=== PATIENT | female | born 1950 | race African-American/Black ===

== ENCOUNTER 2022-10-01 09:49 | Outpatient (CLI) | payer MEDICARE, MEDICAID, SELFPAY ==
--- NOTE | ~2022-10-01 | US_ITS ---
EXAMINATION: US thyroid DATE: 10/01/2022 10:26 INDICATION: Disorder of thyroid, unspecified. TECHNIQUE: Multiple ultrasound images of the thyroid were obtained. COMPARISON: None. FINDINGS: The right thyroid lobe measures 4.6 x 1.8 x 2.0 cm. The left thyroid lobe measures 4.8 x 2.8 x 2.8 c m. In the left thyroid lobe, there is a 3.4 cm solid, hypoechoic, more than tall nodule with lobulat ed margin with macrocalcifications (TI-RADS TR5). IMPRESSION: 1. Left thyroid nodule. Ultrasound-guided fine-needle aspiration is recommended. Reviewed, dictated and finalized at location A. IMPRESSION: 1. Left thyroid nodule. Ultrasound-guided fine-needle aspiration is recommended .
== END 2022-10-01 09:50 | disposition home or self-care (01) ==
PROVIDERS: PCP Family Medicine; Visit Provider Otolaryngology
DX: E04.1 Nontoxic single thyroid nodule (principal)
CPT/HCPCS: 76536

== ENCOUNTER 2022-10-08 09:39 | Outpatient (CLI) | payer MEDICARE, MEDICAID, SELFPAY ==
--- NOTE | ~2022-10-08 | US_ITS ---
EXAMINATION: US FNA w image guidance DATE: 10/08/2022 11:00 INDICATION: Left thyroid mass TECHNIQUE: A time-out was performed to verify the patient's name, date of , and procedure to be performed . The procedure and its benefits and risks were discussed with the patient. Risks specifically discus sed included bleeding and infection. The patient understood the risks and agreed to proceed. The neck was prepped and draped in the usual sterile manner. 4 mL 1% lidocaine was used for local anesthesia . 6 passes were made with a 25G needle into the lesion. Appropriate needle location was documented with continuous sonographic guidance. A sterile bandage was applied. There were no immediate compli cations. FINDINGS: Grayscale ultrasound images demonstrate biopsy needles advanced into a 3.4 cm TI-RADS 5 left thyroid nodule. IMPRESSION: 1. Successful ultrasound-guided fine needle aspiration of a 3.4 cm TI-RADS 5 left thyroid nodule. Reviewed, dictated and finalized at location A. IMPRESSION: 1. Successful ultrasound-guided fine needle aspiration of a 3.4 cm TI-RADS 5 l eft thyroid nodule.
== END 2022-10-08 09:40 | disposition home or self-care (01) ==
PROVIDERS: PCP Family Medicine; Visit Provider Otolaryngology
DX: E07.9 Disorder of thyroid, unspecified (principal)
CPT/HCPCS: 10005; 88173; 88305

== ENCOUNTER 2023-09-06 07:37 | Emergency (ER) | payer MEDICARE, MEDICAID, SELFPAY ==
[2023-09-06] VITALS (19 sets, daily range): BP systolic 119–174; BP diastolic 67–106; PULSE 60–68; RESP 16–20; TEMP 36.7–37; O2SAT 95–100
[2023-09-06] MEDS: oxyCODONE/ACETAMINOPHEN (*CRX) 5-325 MG TABLET 1 TABLET PO (08:02)
--- NOTE | 2023-09-06 09:46 | ED.GENADULT ---
HPI - General Adult General Chief complaint: Unspecified Stated complaint: Facial pain Time Seen by Provider: 09/06/23 07:44 History of Present Illness HPI narrative: Patient is a 73-year-old female who presentsto the ER with left-sided facial pain. Ongoing for 5 days. Initially went to an urgent care was placed on antibiotics for possible sinus infection. Yesterday patient developed vesicles to her face. She went to an urgent care and they diagnosed her with shingles and started her on Valtrex 1000 mg twice a day. Patient reports increased pain to the face today. She has no pain in her eye and no change in vision. She has noticed some discharge from her eye. Related Data Home Medications Medication Instructions Recorded Confirmed amlodipine 10 mg tablet 10 mg PO 09/24/22 11/18/22 ezetimibe 10 mg tablet 10 mg PO 09/24/22 11/18/22 omeprazole 40 mg capsule,delayed 40 mg PO 09/24/22 11/18/22 release Allergies Allergy/AdvReac Type Severity Reaction Status Date / Time No Known Allergies Allergy Mild Unverified 11/18/22 10:14 Review of Systems Review of Systems: All systems reviewed & are unremarkable except as noted in HPI and below Constitutional: Constitutional: Reports no additional constitutional complaints Eyes: Eyes: Denies blurry vision, Denies change in vision, Denies irritation, Denies itchy eyes, Denies loss of vision, Denies other visual disturbances, Denies eye pain and Denies photophobia ENT: Reports system reviewed and no additional complaints, except as documented Integumentary/Breasts: Skin/Breast: Reports rash and Reports other ( Left facial vesicles) [facility] Past Medical History Medical History Allergies Hypertension Social History Social History Smoking status: Never smoker Alcohol intake: never Substance use: never Lack of Transportation: No Lack of Food: Never True Current Housing: I Have Housing Concerned About Future Housing: No Difficulty Paying Gas/Electric Bills: No Difficulty Paying for Meds: No Currently Unemployed: No Education: High School Diploma/GED Difficulty w/ Childcare or Family Care: No Living arrangements: alone Gender identity (if verbalized by the patient): Female Exam Narrative: GENERAL: Well-appearing, well-nourished, and in no acute distress. HEAD: Normocephalic, atraumatic. EYES: PERRLA and EOMI. left eye viewed under magnification with fluorecin staining. No form body/abrasion/dendritic lesions. ENT: Mucous membranes moist. TMs normal bilaterally, no vesicles in the ear canals. CHEST: Clear to auscultation. No respiratory distress. HEART: Regular rate and rhythm. No murmur heard. Normal peripheral pulses. EXTREMITIES: Normal range of motion. No edema. SKIN: Warm, dry . Shingles rash to the left face in the V1/V2 distribution. NEURO: Alert and oriented x3. PSYCH: Normal mood and affect. Course Course Emergency Course: Patient's headache and facial pain resolved with Percocet. I will give patient a prescription for additional Valtrex so that she can take it 3 times a day. Additionally I have educated her that should she develop eye pain or difficulty seeing she should proceed immediately to a tertiary care center for further evaluation. Vital Signs Vital signs: Vital Signs Temperature 98.6 F 09/06/23 07:44 Pulse Rate 68 09/06/23 07:44 Respiratory Rate 20 09/06/23 07:44 Blood Pressure 155/95 H 09/06/23 07:44 Pulse Oximetry 98 09/06/23 07:44 Oxygen Delivery Room Air 09/06/23 07:44 Temperature 98.0 F 09/06/23 10:49 Pulse Rate 64 09/06/23 10:49 Respiratory Rate 16 09/06/23 10:49 Blood Pressure 119/67 09/06/23 10:49 Pulse Oximetry 98 09/06/23 10:49 Oxygen Delivery Room Air 09/06/23 07:44 Medical Decision Making Vital Signs Vital Signs: Vital Signs
== END 2023-09-06 10:51 | disposition home or self-care (01) ==
PROVIDERS: Emergency Provider Emergency Medicine; PCP Family Medicine
DX: B02.9 Zoster without complications (principal)
CPT/HCPCS: 99283; A9270

== ENCOUNTER 2023-11-04 14:14 | Inpatient (IN) | payer MEDICARE, MEDICAID, SELFPAY ==
[2023-11-04] VITALS (14 sets, daily range): BP systolic 101–128; BP diastolic 55–96; PULSE 81–90; RESP 16–26; TEMP 35.9–36.8; O2SAT 92–100; BMI 28.2
--- NOTE | ~2023-11-04 | CT_ITS ---
EXAMINATION: CT abdomen pelvis wo con DATE: 11/16/2023 09:54 INDICATION: Abdominal abscess. TECHNIQUE: Computed tomography (CT) of the abdomen and pelvis was performed without intravenous contr ast. Automated exposure control and iterative reconstruction technique were employed. The dose-length product was 714.15 mGy-cm. COMPARISON: CT abdomen and pelvis 11/13/2023 FINDINGS: The visualized portions of the lung bases demonstrate a 4 mm nodule in right lower lobe, li keely benign. No pleural effusion. The heart size is normal. There are coronary artery calcifications. No pericardial effusion. There is a small sliding hiatal hernia. The liver, gallbladder, spleen, hsieh creas, adrenal glands, and right kidney are normal. There are cysts in left kidney measuring up to 11 mm. There is a parenchymal calcification in left kidney. There is wall thickening of the rectosigmoi d. There are scattered diverticula in the colon. There is fat stranding around the rectosigmoid. Ther e is a 6.9 x 3.0 cm perisigmoid abscess with percutaneous drain in expected position. The appendix is normal. There are no pathologically enlarged lymph nodes. There is mild thoracic and lumbar spondylo sis. Thoracolumbar levoscoliosis is noted. IMPRESSION: 1. Acute sigmoid diverticulitis. 2. Stable 6.9 x 3.0 cm perisigmoid abscess with percutaneous drain in expected position. Reviewed, dictated and finalized at location E.
--- NOTE | ~2023-11-04 | CT_ITS ---
EXAMINATION: CT abdomen pelvis w con DATE: 11/08/2023 10:20 INDICATION: Abscess. Leukocytosis. TECHNIQUE: Computed tomography (CT) of the abdomen and pelvis was performed with 100 mL Omnipaque 350 intravenous contrast. Automated exposure control and iterative reconstruction technique were employe d. The dose-length product was 1059.62 mGy-cm. COMPARISON: CT pelvis 11/05/2023 FINDINGS: The visualized portions of the lung bases demonstrate mild atelectasis. A calcified left davis ng nodule is consistent with old granulomatous disease. There is a trace left pleural effusion. The h eart size is normal. No pericardial effusion. There is a small sliding hiatal hernia. The liver is no rmal. The gallbladder is normal in size. The spleen, pancreas, and adrenal glands are normal. There i s cortical thinning of the kidneys. There are cysts in left kidney measuring up to 14 mm. There is ca lcified atherosclerosis of the aorta and many of the other arteries. There is wall thickening of the sigmoid colon. There are scattered diverticula in the colon. There is fat stranding around the sigmoi d colon. There is a perforation of the wall of the sigmoid colon with diameter of 6 mm. There is a 6. 7 x 6.2 x 3.3 cm perisigmoid abscess. There are no dilated loops of bowel. The appendix is normal. Th ere are no pathologically enlarged lymph nodes. There is mild thoracic and lumbar spondylosis. IMPRESSION: 1. Acute sigmoid diverticulitis with fistula to a 6.7 x 6.2 x 3.3 cm perisigmoid abscess. Consider CT -guided drainage. Reviewed, dictated and finalized at location A. IMPRESSION: 1. Acute sigmoid diverticulitis with fistula to a 6.7 x 6.2 x 3.3 cm perisigmoi d abscess. Consider CT-guided drainage.
--- NOTE | ~2023-11-04 | CT_ITS ---
EXAMINATION: CT abdomen pelvis w con DATE: 11/04/2023 15:51 INDICATION: Nonlocalized abdominal pain. Nausea and vomiting. TECHNIQUE: Computed tomography (CT) of the abdomen and pelvis was performed with 100 mL Omnipaque 350 intravenous contrast. Automated exposure control and iterative reconstruction technique were employe d. The dose-length product was 560.40 mGy-cm. COMPARISON: None. FINDINGS: The visualized portions of the lung bases demonstrate mild atelectasis. There is a 4 mm nod ule in right lower lobe, likely benign. No pleural effusion. The heart size is normal. No pericardial effusion. There is a small sliding hiatal hernia. There is a 5 mm cyst in the liver. The spleen, gal lbladder, pancreas, and adrenal glands are normal. There are cysts in the kidneys measuring up to 15 mm on the left. There are multiple diverticula in the colon. There is wall thickening of the sigmoid colon with surrounding fat stranding. There is a perisigmoid abscess measuring up to 6.7 x 3.1 cm con taining fluid and gas. The appendix is normal. Aortic atherosclerosis is noted. There are no patholog ically enlarged lymph nodes. There is moderate lumbar spondylosis. IMPRESSION: 1. Sigmoid diverticulitis with perisigmoid abscess. The volume of gas in the abscess suggests a fistu la to sigmoid colon. Reviewed, dictated and finalized at location E. IMPRESSION: 1. Sigmoid diverticulitis with perisigmoid abscess. The volume of gas in the ab scess suggests a fistula to sigmoid colon.
--- NOTE | ~2023-11-04 | CT_ITS ---
EXAMINATION: CT abdomen pelvis wo con DATE: 11/13/2023 11:44 INDICATION: Pelvic abscess. TECHNIQUE: Computed tomography (CT) of the abdomen and pelvis was performed without intravenous contr ast. Automated exposure control and iterative reconstruction technique were employed. The dose-length product was 749.73 mGy-cm. COMPARISON: CT abdomen and pelvis 11/08/2023 FINDINGS: The visualized portions of lung bases demonstrate minimal atelectasis. A calcified left donnell g nodule is consistent with old granulomatous disease. No pleural effusion. The heart size is normal. There are coronary artery calcifications. No pericardial effusion. The liver, gallbladder, spleen, p ancreas, adrenal glands, and right kidney are normal. There is a 2 mm parenchymal calcification in le ft kidney. There are cysts in left kidney measuring up to 1.5 cm. There is wall thickening of the sig moid colon with surrounding fat stranding. There are scattered diverticula in the colon. There is a 7 .3 x 2.8 cm perisigmoid abscess with percutaneous drain in expected position. The appendix is normal. The appendix is normal. There is a small sliding hiatal hernia. There are no pathologically enlarged lymph nodes. There is no free ascites. IMPRESSION: 1. Acute sigmoid diverticulitis with 7.3 x 2.8 cm perisigmoid abscess with interval improvement with percutaneous drain in expected position. If drain output is low, consider CT-guided exchange for a la rger drain. Reviewed, dictated and finalized at location A. IMPRESSION: 1. Acute sigmoid diverticulitis with 7.3 x 2.8 cm perisigmoid abscess with inte rval improvement with percutaneous drain in expected position. If drain output is low, consider CT-guided exchange for a larger drain.
--- NOTE | ~2023-11-04 | CT_ITS ---
EXAMINATION: CT pelvis wo con DATE: 11/05/2023 18:07 INDICATION: Pelvic abscess. Drain manipulation. TECHNIQUE: Computed tomography (CT) of the pelvis was performed without intravenous contrast. Automat ed exposure control and iterative reconstruction technique were employed. The dose-length product was 439.76 mGy-cm. COMPARISON: CT abdomen and pelvis 11/04/2023, 11/05/23 FINDINGS: There are no dilated loops of bowel. The appendix is normal. There are scattered diverticul a in the colon. There is wall thickening of the sigmoid colon with surrounding fat stranding. There i s a perisigmoid abscess measuring up to 6.2 x 1.1 cm. The percutaneous drain has been withdrawn out o f the abscess. There is a lipoma in the proximal right thigh. There is moderate lumbar spondylosis. IMPRESSION: 1. Acute sigmoid diverticulitis with perisigmoid abscess with interval improvement. 2. Dislodged percutaneous drain, which is no longer in the abscess. Reviewed, dictated and finalized at location E. IMPRESSION: 1. Acute sigmoid diverticulitis with perisigmoid abscess with interval improvem ent. 2. Dislodged percutaneous drain, which is no longer in the abscess.
--- NOTE | ~2023-11-04 | CT_ITS ---
EXAMINATION: CT guide absc cath placement DATE: 11/09/2023 13:45 INDICATION: Perisigmoid abscess. TECHNIQUE: The procedure including the risks, benefits, and alternatives was discussed with the patie nt. Risks discussed included bleeding and infection. The patient understood the risks and benefits an d agreed to proceed. The skin overlying the buttock was prepped and draped in usual sterile fashion. Anesthetic was administered with 1% lidocaine subcutaneously. Moderate sedation was achieved with 1 mg Versed IV and 100 mcg fentanyl IV. An 18 gauge trochar needle was inserted into the perisigmoid ab scess with CT guidance. The needle was exchanged over a wire for 5 [place], 7 [place], and 9 [place] dil ators and then for an 8.5 [place] pigtail catheter. The catheter was stitched to the skin, and a steri le dressing was applied. The mA was adjusted according to patient size. Iterative reconstruction tech nique was employed. The dose-length product was 295.80 mGy-cm. There were no immediate complications. FINDINGS: CT images demonstrate the catheter within the fluid collection. 5 mL fluid was aspirated fo r testing. IMPRESSION: 1. Successful CT-guided perisigmoid abscess drainage. 2. 5 mL opaque, donaldson fluid was sent for aerobic and anaerobic cultures. Reviewed, dictated and finalized at location A.
--- NOTE | ~2023-11-04 | CT_ITS ---
EXAMINATION: CT guide absc cath placement DATE: 11/05/2023 14:35 INDICATION: Diverticular abscess in the pelvis TECHNIQUE: The procedure including the risks and benefits was discussed with the patient. Risks discu ssed included bleeding and infection. The patient understood the risks and benefits and agreed to pro ceed. The patient was confirmed to be receiving appropriate antibiotic coverage. The skin overlying the left buttock along the gluteal cleft was prepped and draped in usual sterile fashion. Anesthetic was administered with 1% lidocaine subcutaneously. An 18-gauge trochar needle was inserted into the abscess cavity utilizing CT guidance. The inner stylette was removed and a J-wire advanced into the f luid collection with position confirmed by CT. Utilizing Seldinger technique the needle was removed o jorge luis the wire and the tract serially dilated to 10 Maltese. A 10 Fr catheter was inserted into the pelv ic abscess and the loop formed and locked with position confirmed by CT. The catheter was stitched to the skin with suture. Antibiotic ointment and a sterile dressing were applied. 40 mL of opaque yello wish-donaldson purulent appearing fluid was aspirated and sent to the lab for Gram stain and cultures. The catheter was then attached to suction drainage and was draining additional purulent appearing fluid a t the conclusion of the procedure. There were no immediate complications. The dose-length product was 324.94 mGy-cm. FINDINGS: CT images demonstrate the catheter within the gas and fluid containing pelvic abscess. 40 m L fluid was aspirated for testing. IMPRESSION: 1. Successful CT-guided left transgluteal abscess drainage catheter placement. 2. 40 mL fluid was sent for aerobic and anaerobic cultures. 3. The catheter will be managed by Dr. Johnson. Reviewed, dictated and finalized at location A.
--- NOTE | ~2023-11-04 | CT_ITS ---
EXAMINATION: CT guide absc cath placement DATE: 11/13/2023 15:42 INDICATION: Perisigmoid abscess. TECHNIQUE: The procedure including the risks, benefits, and alternatives was discussed with the patie nt. Risks discussed included bleeding and infection. The patient understood the risks and benefits an d agreed to proceed. The skin overlying the left buttock was prepped and draped in usual sterile fas hion. Anesthetic was administered with 1% lidocaine subcutaneously. The percutaneous drain was excha nged over a J-wire for 6 Northern Irish, 8 Northern Irish, and 10 Northern Irish dilators and a 10 Northern Irish pigtail catheter us ing CT guidance. The catheter was stitched to the skin, and a sterile dressing was applied. The mA wa s adjusted according to patient size. Iterative reconstruction technique was employed. The dose-lengt h product was 158.93 mGy-cm. There were no immediate complications. FINDINGS: CT images demonstrate the catheter within the perisigmoid abscess. IMPRESSION: 1. Successful CT-guided perisigmoid abscess drain exchange. Reviewed, dictated and finalized at location A.
[2023-11-04] MEDS: SODIUM CHLORIDE 0.9% IV 1,000 ML 999 ML IV CONT (15:29)
[2023-11-04] MEDS: ONDANSETRON INJ 4 MG/2 ML VIAL IV PUSH (15:30)
[2023-11-04] MEDS: MORPHINE SULFATE (*CRX) 4 MG/ML INJ IV PUSH (15:30)
[2023-11-04 15:37] LABS: Hematocrit 35.2 % (37.0-47.0); Hemoglobin 12.2 g/dL (12.0-15.0); Mean Corpuscular HGB Conc 34.7 g/dl (32-36); Mean Corpuscular Hemoglobin 30.7 pg (26-34); Mean Corpuscular Volume 88.7 fl (80-100); Mean Platelet Volume 10.1 fl (7.4-10.4); Platelet Count Result 262 k/mm3 (150-375); Red Blood Count 3.97 M/mm3 (4.2-5.4); Red Cell Distribution Width 14.4 % (11.5-14.5)
[2023-11-04 15:48] LABS: INR 1.2
[2023-11-04 15:49] LABS: Partial Thromboplastin Time 37.8 Seconds (22.3-36.8)
[2023-11-04 15:58] LABS: Alanine Aminotransferase 19 U/L (6-35); Albumin Level 3.8 g/dL (3.5-5.1); Alkaline Phosphatase 95 U/L (38-126); Anion Gap 8 mmol/L (4-12); Aspartate Amino Transferase 27 U/L (14-36); Bilirubin,Total 1.1 mg/dL (0.2-1.3); Blood Urea Nitrogen 10 mg/dL (7-17); Calcium 8.8 mg/dL (8.4-10.2); Carbon Dioxide 25 mmol/L (22-30); Chloride 101 mmol/L (98-107); Estimated CRCL calculation 58 ml/min; Estimated Glomerular Filt Rate > 60; Glucose 117 mg/dL (65-110); Lipase 42 U/L (23-300); Potassium 2.6 mmol/L (3.4-5.0); Sodium 134 mmol/L (137-145)
[2023-11-04 15:59] LABS: Estimated CRCL calculation 58 ml/min; Estimated Glomerular Filt Rate > 60
[2023-11-04 16:13] LABS: Atypical Lymphocytes Present; Band Neutrophils Percent 9 % (0-6); Lymphocytes Absolute Manual 1.25 K/mm3 (1.1-4.5); Monocytes Percent Manual 2 % (3-9); Neutrophils Absolute Manual 23.25 K/mm3 (1.7-7.2); Neutrophils Percent Manual 84 % (46-73); Platelet Estimate Adequate (Adequate); Schistocytes None Seen; Total Cells Counted 100
--- NOTE | 2023-11-04 16:18 | ED.ABDPAIN ---
HPI - Abdominal Pain General Chief Complaint: Abdominal Pain Stated Complaint: abd pain Time Seen by Provider: 11/04/23 15:11 History of Present Illness HPI narrative: patient is a 73-year-old female who presents ER with abdominal pain. Worsening over last week. It is now sharp and located on left side. She is having bowel movements. No diarrhea. No fevers or chills or sweats. She has been having vomiting. No alleviating factors. Related Data Home Medications Medication Instructions Recorded Confirmed amlodipine 10 mg tablet 10 mg PO DAILY 09/24/22 11/04/23 ezetimibe 10 mg tablet 10 mg PO DAILY 09/24/22 11/04/23 omeprazole 40 mg capsule,delayed 40 mg PO DAILY 09/24/22 11/04/23 release Allergies Allergy/AdvReac Type Severity Reaction Status Date / Time No Known Allergies Allergy Mild Unverified 11/18/22 10:14 Review of Systems Review of Systems: All systems reviewed & are unremarkable except as noted in HPI and below Constitutional: Constitutional: Reports no additional constitutional complaints ENT: Reports system reviewed and no additional complaints, except as documented Cardiovascular: Cardiovascular: Reports no additional cardiovascular complaints Respiratory: Respiratory: Reports no additional respiratory complaints Gastrointestinal: Gastrointestinal: Reports abdominal pain, Reports bloating, Reports nausea and Reports vomiting Genitourinary: Genitourinary: Reports no additional female genitourinary complaints [facility] Past Medical History Medical History (Updated 11/04/23 @ 21:25 by Serjio Hendrickson MD) Asthma Chronic nonallergic rhinitis Eczema of both external ears Hypertension Thyroid mass benign follicular nodule, 10/09/22 Surgical History Surgical History History of hysterectomy Social History Social History Smoking packs per day: 1 Smoking cigarettes per day: 20.0 Smoking status: Current every day smoker Tobacco type: cigarettes Alcohol intake: never Substance use: never Do You Feel Safe in your Home?: Yes Lack of Transportation: No Lack of Food: Never True Current Housing: I Have Housing Concerned About Future Housing: No Difficulty Paying Gas/Electric Bills: No Difficulty Paying for Meds: No Currently Unemployed: No Education: Trade/Vocational Certificate Difficulty w/ Childcare or Family Care: No Living arrangements: alone Gender identity (if verbalized by the patient): Female Spiritual care concerns: No Exam Narrative: GENERAL: Uncomfortable-appearing, well-nourished, and in no acute distress. HEAD: Normocephalic, atraumatic. ENT: Mucous membranes moist. NECK: Supple. CHEST: Clear to auscultation. No respiratory distress. HEART: Regular rate and rhythm. Normal peripheral pulses. ABDOMEN: Soft, mildly distended, tender palpation left lower quadrant with guarding EXTREMITIES: Normal range of motion. No edema. SKIN: Warm, dry, no rash. NEURO: Alert and oriented x3. PSYCH: Normal mood and affect. Course Course Emergency Course: patient formed results. Discussed case with general surgery who will consult on the patient. Patient is on Zosyn and metronidazole. She will be kept NPO. Hospitalist service has accepted the patient. Likely to receive percutaneous drain tomorrow. patient also has hypokalemia which is being replaced IV. Vital Signs Vital signs: Vital Signs Temperature 97.6 F 11/04/23 14:18 Pulse Rate 90 11/04/23 14:18 Respiratory Rate 16 11/04/23 14:18 Blood Pressure 125/70 11/04/23 14:18 Pulse Oximetry 98 11/04/23 14:18 Oxygen Delivery Room Air 11/04/23 14:18 Temperature 96.7 F L 11/04/23 18:30 Pulse Rate 86 11/04/23 20:00 Respiratory Rate 16 11/04/23 20:00 Blood Pressure 122/81 11/04/23 18:30 Pulse Oximetry 99 11/04/23 20:00 Oxygen Delivery Cecilia
[2023-11-04] MEDS: PIPERACILLN/TAZ 3.375GM/NS50ML 3.375 GM/50 ML BAG IVPB ×2 (16:41→23:41)
[2023-11-04 16:53] LABS: Appearance Urine Clear (Clear); Bilirubin Urine Negative (Negative); Blood Urine Negative (Negative); Color Urine Yellow (Yellow); Glucose Urine UA Negative (Negative); Ketones Urine Negative (Negative); Leukocyte Esterase Ur Negative LEU/UL (Negative); Nitrate Urine Negative (Negative); Protein Urine Negative (Negative); Urobilinogen Urine 0.2 mg/dL (<2.0); pH Urine 7.5 (5.0-9.0)
[2023-11-04 16:56] LABS: Specific Grav Ur 1.039 (1.001-1.035)
[2023-11-04 16:57] LABS: Add Urine Microscopic? NO
[2023-11-04] MEDS: POTASSIUM CHLORIDE INJ 40 MEQ in SODIUM CHLORIDE 0.9% IV 500 ML 130 MEQ IVPB (17:41)
[2023-11-04] MEDS: metroNIDAZOLE 500 MG/ISO 100ML 500 MG/100 ML BAG 100 MG IVPB (17:41)
--- NOTE | 2023-11-04 18:05 | PM.IMHP ---
H&P: HPI History of Present Illness Date/Time: 11/04/23 18:05 Chief Complaint: Abdominal Pain Narrative: 73 y/o F presents here with abdominal and N/V with PMH allergies, HTN, and shingles (left facial, 08/2023). Patient presents here from home with abdominal pain, nausea, and vomiting. Onset was on 10/30 with indigestion and heart burn. Then later developed lower abdominal pain that worsened with ambulation and painful BM on Thursday, 10/31. States she attempted to rest and was mostly bed ridden due to the pain. Describes pain as sharp, left upper and midline lower, with radiation into her lower back (more so on the right), aggravated by ambulation, and alleviated by pain medication/resting. Reports reduced appetite since onset of symptoms and poor PO intake. History of abdominal surgeries: partial hysterectomy only. Last bowel movement was this morning (11/03), brown, hard, and small in size like a pellet. Denies diarrhea. +diaphoresis, chills, and fevers since she had shingles in August. Feels dehydrated and nauseous with minimal emesis (described as small amount of spit up). Reports she has been feeling a little more fuzzy and confused over the last few days due to her illness. A/Ox4 but would briefly answer things incorrectly but would correct herself. Initial VS at presentation: 97.6? F, HR 90, RR 16, 125/70, and 98% on RA. ED workup showed: WBC 25, no anemia, INR 1.2 sodium 134, potassium 2.6, glucose 117, lactic 1, creatinine 0.8 and GFR >60, LFTs and lipase WNL. UA showed specific gravity of 1.039, otherwise unremarkable. CT of the abdomen/pelvis showed sigmoid diverticulitis with perisigmoid abscess, volume of gas in the abscess suggestive fistula to the sigmoid colon. Review of Systems Review of Systems: All systems reviewed & are unremarkable except as noted in HPI and below [facility] Past Medical History Medical History (Updated 11/04/23 @ 20:38 by Danitza Montero APRN) Asthma Chronic nonallergic rhinitis Eczema of both external ears Hypertension Thyroid mass benign follicular nodule, 10/09/22 Surgical History Surgical History History of hysterectomy Social History Social History Smoking packs per day: 1 Smoking cigarettes per day: 20.0 Smoking status: Current every day smoker Tobacco type: cigarettes Alcohol intake: never Substance use: never Do You Feel Safe in your Home?: Yes Lack of Transportation: No Lack of Food: Never True Current Housing: I Have Housing Concerned About Future Housing: No Difficulty Paying Gas/Electric Bills: No Difficulty Paying for Meds: No Currently Unemployed: No Education: Trade/Vocational Certificate Difficulty w/ Childcare or Family Care: No Living arrangements: alone Gender identity (if verbalized by the patient): Female Spiritual care concerns: No Meds Home Medications and Allergies Home Medications Medication Instructions Recorded Confirmed Type amlodipine 10 mg tablet 10 mg PO DAILY 09/24/22 11/04/23 History ezetimibe 10 mg tablet 10 mg PO DAILY 09/24/22 11/04/23 History omeprazole 40 mg capsule,delayed 40 mg PO DAILY 09/24/22 11/04/23 History release [id number]-ylhmwjbiz 3.5 4 drp otic (ear) Q8H #10 mL 11/18/22 11/04/23 Rx mg-10,000 unit/mL-1 % ear drops,susp Allergies Allergy/AdvReac Type Severity Reaction Status Date / Time No Known Allergies Allergy Mild Unverified 11/18/22 10:14 Vital Signs Vital Signs - 24 hr 11/04/23 14:18 11/04/23 15:20 11/04/23 16:42 Temperature 97.6 F 98.3 F 98.2 F Pulse Rate 90 88 81 Respiratory Rate 16 16 18 Blood Pressure 125/70 128/78 104/79 Pulse Oximetry 98 99 96 Oxygen Delivery Room Air 11/04/23 15:53 11/04/23 16:00 11/04/23 16:21 Temperature Pulse Rate 87 84 83 Respiratory Rate 20 17 23 H Blood Pressure Pulse Oximetry 96
--- NOTE | 2023-11-04 18:29 | ADMGEN ---
This patient, Myke Sheppard, was admitted to Medical Room 249-01. Patient/family oriented to hospital policies and general routines including ID bracelet, bed and alarms, visiting hours, pain management, procedures, bathroom and other care routines, personal items, smoking policy, room service/diet, and visiting hours. Information on how to activate the Rapid Response Team has been discussed. Patient/Family are encouraged to report perceived risks to care and to ask questions if they do not understand what they are told or what they should do.
[2023-11-04] MEDS: LACTATED RINGERS 1,000 ML 999 ML IV CONT (19:37)
[2023-11-04] MEDS: POTASSIUM CHLORIDE 20 MEQ ER TABLET 40 MEQ PO (19:38)
[2023-11-04 22:26] LABS: Anion Gap 5 mmol/L (4-12); Blood Urea Nitrogen 8 mg/dL (7-17); Calcium 8.2 mg/dL (8.4-10.2); Carbon Dioxide 24 mmol/L (22-30); Chloride 108 mmol/L (98-107); Estimated CRCL calculation 58 ml/min; Estimated Glomerular Filt Rate > 60; Glucose 108 mg/dL (65-110); Magnesium 1.8 mg/dL (1.6-2.3); Potassium 3.5 mmol/L (3.4-5.0); Sodium 137 mmol/L (137-145)
[2023-11-04] MEDS: SODIUM CHLORIDE 0.9% IV 1,000 ML 125 ML IV CONT (23:40)
[2023-11-04] MEDS: NEOMYCIN/POLYMYXIN/HYDROCORT OT SUSP 10 ML BTL (*BKC) 4 DROP EACH EAR (23:41)
[2023-11-05] VITALS (22 sets, daily range): BP systolic 112–169; BP diastolic 65–87; PULSE 74–85; RESP 15–24; TEMP 36.2–36.8; O2SAT 95–100
[2023-11-05] MEDS: metroNIDAZOLE 500 MG/ISO 100ML 500 MG/100 ML BAG 100 MG IVPB ×3 (00:56→17:20)
[2023-11-05] MEDS: PIPERACILLN/TAZ 3.375GM/NS50ML 3.375 GM/50 ML BAG IVPB ×4 (05:03→23:38)
[2023-11-05] MEDS: NEOMYCIN/POLYMYXIN/HYDROCORT OT SUSP 10 ML BTL (*BKC) 4 DROP EACH EAR ×2 (05:04→20:15)
[2023-11-05 05:30] LABS: Basophils Percent Auto 0.2 % (0.2-1.2); Eosinophils Percent Auto 0.1 % (0-4.4); Hematocrit 31.6 % (37.0-47.0); Hemoglobin 10.4 g/dL (12.0-15.0); Immature Granulocyte Absolute 0.41 K/mm3 (0.00-0.031); Immature Granulocyte Percent A 2.2 % (0-0.5); Lymphocytes Absolute Auto 1.49 K/mm3 (0.9-3.2); Lymphocytes Percent Auto 7.8 % (18.3-44.2); Mean Corpuscular HGB Conc 32.9 g/dl (32-36); Mean Corpuscular Hemoglobin 30.1 pg (26-34); Mean Corpuscular Volume 91.3 fl (80-100); Mean Platelet Volume 10.2 fl (7.4-10.4); Monocytes Percent Auto 5.2 % (2.6-8.5); Neutrophils Absolute Auto 16.1 K/mm3 (1.3-6.7); Neutrophils Percent Auto 84.5 % (45.5-73.1); Platelet Count Result 276 k/mm3 (150-375); Red Blood Count 3.46 M/mm3 (4.2-5.4); Red Cell Distribution Width 14.7 % (11.5-14.5); White Blood Count 19.1 K/mm3 (4.5-10.0)
[2023-11-05 05:45] LABS: Alanine Aminotransferase 17 U/L (6-35); Albumin Level 3.2 g/dL (3.5-5.1); Alkaline Phosphatase 83 U/L (38-126); Anion Gap 4 mmol/L (4-12); Aspartate Amino Transferase 21 U/L (14-36); Bilirubin,Total 0.9 mg/dL (0.2-1.3); Blood Urea Nitrogen 9 mg/dL (7-17); Carbon Dioxide 25 mmol/L (22-30); Chloride 110 mmol/L (98-107); Estimated CRCL calculation 58 ml/min; Estimated Glomerular Filt Rate > 60; Glucose 104 mg/dL (65-110); Magnesium 1.9 mg/dL (1.6-2.3); Phosphorus 2.3 mg/dL (2.5-4.5); Potassium 3.3 mmol/L (3.4-5.0); Sodium 139 mmol/L (137-145)
[2023-11-05 05:49] LABS: INR 1.2; Prothrombin Time 15.7 Seconds (11.1-14.7)
[2023-11-05] MEDS: MORPHINE SULFATE (*CRX) 2 MG/ML INJ IV PUSH (06:10)
--- NOTE | 2023-11-05 06:50 | P.PNIM_ITS ---
Progress Note: A&P Assessment and Plan (1) Sepsis: Code(s): A41.9 - Sepsis, unspecified organism Status: Acute Assessment and Plan: - meets SIRS criteria: HR, WBC. No hypotension or hypoxia. - lactic acid: 1.0 - 30 mL/kg = 2300. given 1L bolus of NS, adding 1L bolus of LR -> 125 mL/hr of NS. - suspected source: diverticulitis, perisigmoid abscess - started on Zosyn and Flagyl on 11/03 - blood cultures drawn on 11/03 - UA: specific gravity 1.039, otherwise unremarkable 11/04: * WBC downtrending. 25-->19.1 * afebrile overnight * Blood pressures stable * Continue Zosyn and Flagyl per surgery * blood cultures pending (2) Sigmoid diverticulitis: Code(s): K57.32 - Diverticulitis of large intestine without perforation or abscess without bleeding Status: Deleted Assessment and Plan: - CT abd/pelvis: Sigmoid diverticulitis with perisigmoid abscess. 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 - started on Zosyn and Flagyl on 11/03 - WBC 25 - IV fluids and monitor I&Os - trend labs 11/04: * surgery consult, rec's appreciated * NPO for possible intervention * Zosyn, Flagyl, and IVF * morphine prn for pain, Zofran prn for nausea (3) Abscess of sigmoid colon due to diverticulitis: Code(s): K57.20 - Diverticulitis of large intestine with perforation and abscess without bleeding Status: Deleted Assessment and Plan: - CT abd/pelvis: sigmoid diverticulitis with perisigmoid abscess. 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 - General Surgery consulted, awaiting recs - NPO See plan 2 (4) Hypokalemia: Code(s): E87.6 - Hypokalemia Status: Acute Assessment and Plan: - K 2.6 - starting repletion with KCl 40 IVPB and one time dose of 40 mg PO - repeat bmp at 2200 - continue to trend/correct 11/04: * K+ 3.3, phos 2.3 * IVP K+Phos replacement ordered * On telemetry (5) Hypertension: Code(s): I10 - Essential (primary) hypertension Status: Acute Assessment and Plan: - chronic, currently 120/96 - hold home medication: amlodipine PO - add hydralazine q.8 hours p.r.n. for HTN given NPO status - monitor 11/04: * Blood pressures reviewed and are stable. * Continue to hold home agents in setting of sepsis. Plan Patient here with abdominal pain, nausea, and vomiting. Found to have diverticulitis, perisigmoid abscess, and possible fistula. Blood cultures obtained, started on Zosyn and Flagyl. General surgery consulted and awaiting recs. NPO. Continue to rehydrate. home p.o. medications held, ear drops continued. Diet: NPO GI Prophylaxis: pantoprazole IVP DVT Prophylaxis: SCDs Lines: peripheral Code Status: full code Subjective Date/time seen: 11/05/23 06:50 Interval history: 11/03: Patient is seen lying in bed after returning to her down from having IR procedure. According to her nu
--- NOTE | 2023-11-05 06:50 | PM.IMPN ---
Progress Note: A&P Assessment and Plan (1) Sepsis: Code(s): A41.9 - Sepsis, unspecified organism Status: Acute Assessment and Plan: - meets SIRS criteria: HR, WBC. No hypotension or hypoxia. - lactic acid: 1.0 - 30 mL/kg = 2300. given 1L bolus of NS, adding 1L bolus of LR -> 125 mL/hr of NS. - suspected source: diverticulitis, perisigmoid abscess - started on Zosyn and Flagyl on 11/03 - blood cultures drawn on 11/03 - UA: specific gravity 1.039, otherwise unremarkable 11/04: WBC downtrending. 25-->19.1 afebrile overnight Blood pressures stable Continue Zosyn and Flagyl per surgery blood cultures pending (2) Sigmoid diverticulitis: Code(s): K57.32 - Diverticulitis of large intestine without perforation or abscess without bleeding Status: Deleted Assessment and Plan: - CT abd/pelvis: Sigmoid diverticulitis with perisigmoid abscess. 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 - started on Zosyn and Flagyl on 11/03 - WBC 25 - IV fluids and monitor I&Os - trend labs 11/04: surgery consult, rec's appreciated NPO for possible intervention Zosyn, Flagyl, and IVF morphine prn for pain, Zofran prn for nausea (3) Abscess of sigmoid colon due to diverticulitis: Code(s): K57.20 - Diverticulitis of large intestine with perforation and abscess without bleeding Status: Deleted Assessment and Plan: - CT abd/pelvis: sigmoid diverticulitis with perisigmoid abscess. 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 - General Surgery consulted, awaiting recs - NPO See plan 2 (4) Hypokalemia: Code(s): E87.6 - Hypokalemia Status: Acute Assessment and Plan: - K 2.6 - starting repletion with KCl 40 IVPB and one time dose of 40 mg PO - repeat bmp at 2200 - continue to trend/correct 11/04: K+ 3.3, phos 2.3 IVP K+Phos replacement ordered On telemetry (5) Hypertension: Code(s): I10 - Essential (primary) hypertension Status: Acute Assessment and Plan: - chronic, currently 120/96 - hold home medication: amlodipine PO - add hydralazine q.8 hours p.r.n. for HTN given NPO status - monitor 11/04: Blood pressures reviewed and are stable. Continue to hold home agents in setting of sepsis. Plan Patient here with abdominal pain, nausea, and vomiting. Found to have diverticulitis, perisigmoid abscess, and possible fistula. Blood cultures obtained, started on Zosyn and Flagyl. General surgery consulted and awaiting recs. NPO. Continue to rehydrate. home p.o. medications held, ear drops continued. Diet: NPO GI Prophylaxis: pantoprazole IVP DVT Prophylaxis: SCDs Lines: peripheral Code Status: full code Subjective Date/time seen: 11/05/23 06:50 Interval history: 11/03: Patient is seen lying in bed after returning to her down from having IR procedure. According to her nurse, the patient got up to go to the bathroom and her IR drain got pulled, partially displacing the drain. Dr. Johnson ordered as CT abdomen and pelvis to evaluate drain placement. Drain currently has purulent drainage present to reservoir. The patient states that her abdominal pain has improved since presenting but she still is uncomfortable and feels generally unwell. 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 She has completed therapy with Valtrex. Will add gabapentin for persistent neuropathic pain. Review of Systems Review of Systems: All systems reviewed & are unremarkable except as noted in HPI and below Exam Narrative: General: appears uncomfortable, appears stated age. HEENT: normocephalic, atraumatic. Mucous membranes moist. EOMI, PERRLA, bilateral sclera anicteric, no conjunctival injection. Neck supple without JVD, lymphadenopathy, or bruit. Respiratory: clear to auscultation bilaterally. No ral
--- NOTE | 2023-11-05 08:57 | PM.CNGS ---
Assessment and Plan Assessment and plan (1) Diverticulitis of large intestine with abscess: Code(s): K57.20 - Diverticulitis of large intestine with perforation and abscess without bleeding Status: Acute Assessment and Plan: CT evidence of sigmoid diverticulitis with perisigmoid abscess measuring up to 6.7 cm containing fluid and gas. Her abdominal pain has improved since admission. She has lower abdominal tenderness on exam and guarding in the suprapubic area and left lower quadrant, but no diffuse peritoneal signs. White blood cell count is down to 19,000 today. We would recommend proceeding with percutaneous drainage the perisigmoid abscess in Radiology. Continue IV Zosyn and metronidazole, IV fluids, analgesics, and bowel rest. We will continue to follow along with labs and serial abdominal exams. (2) Hypokalemia: Code(s): E87.6 - Hypokalemia Status: Acute Assessment and Plan: Potassium 2.6 yesterday and came up to 3.5 after replacement. Repeat labs this morning show potassium at 3.3 and phosphorus slightly low at 2.3. 40 mm K-Phos ordered this morning. (3) Hypertension: Code(s): I10 - Essential (primary) hypertension Status: Acute (4) History of shingles: Code(s): Z86.19 - Personal history of other infectious and parasitic diseases Status: Acute Assessment and Plan: Vesicular left facial rash and pain 2 months ago that was treated in the ER on 09/06/23. She no longer has any open lesions and likely does not need any precautions, but she is still complaining of some pain and itching. Discussed with the Hospitalist as she still does have a rash on her face, as well as what looks like thrush. Plan I have discussed the patient's case and plan of care with Dr. Johnson. Thank you for allowing us to see the patient in consultation and we will continue to follow along with you. History of Present Illness Consult details Consult date: 11/05/23 Reason for consult: other (Diverticulitis with abscess) Requesting physician: Serjio Hendrickson MD Narrative: This is a 73-year-old woman with a history of hypertension and hyperlipidemia, who presented to the ER yesterday with complaints of left-sided abdominal pain. Her pain started 1 week ago and has progressively gotten worse over the past few days. She denies fever, chills, diarrhea, blood in stools, nausea, or vomiting. In the ED, she was afebrile and vital signs stable. Labs were significant for white blood cell count 53763 and hypokalemia with a potassium of 2.6. The her potassium was replaced and repeat labs in the evening showed a potassium of 3.5. CT scan of the abdomen and pelvis showed sigmoid diverticulitis with perisigmoid abscess, the volume of gas in the abscess suggests a possible fistula to the sigmoid colon from the abscess. She was admitted and started on IV Zosyn and metronidazole. Our service was consulted for the sigmoid diverticulitis with abscess. She is seen on the medical floor now. Only previous abdominal surgery is a hysterectomy. Denies any previous episodes of diverticulitis. Denies having a colonoscopy in the past. 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
[2023-11-05] MEDS: POTASSIUM PHOS,M-BASIC-D-BASIC 40 MMOL in SODIUM CHLORIDE 0.9% IV 250 ML 43.89 MMOL IVPB (10:22)
[2023-11-05] MEDS: EUCERIN CREAM 120 GM JAR 1 APPLIC TOPICAL (10:23)
[2023-11-05] MEDS: PANTOPRAZOLE SODIUM IV 40 MG VIAL IV PUSH (10:24)
[2023-11-05] MEDS: SODIUM CHLORIDE 0.9% IV 1,000 ML 125 ML IV CONT ×2 (10:39→23:40)
[2023-11-05] MEDS: ACETAMINOPHEN 325 MG TABLET 650 MG PO ×2 (11:01→20:14)
--- NOTE | 2023-11-05 14:30 | WPDMODSED ---
Moderate Sedation Note-Pt Data Patient Data Diagnosis: perforated sigmoid diverticulitis with pelvic abscess Present Complaint: abdominal pain and fever Procedure to be performed/Plan: percutaneous abscess drain placement Allergies Allergy/AdvReac Type Severity Reaction Status Date / Time No Known Allergies Allergy Mild Unverified 11/18/22 10:14 Home Medications Medication Instructions Recorded Confirmed Type amlodipine 10 mg tablet 10 mg PO DAILY 09/24/22 11/04/23 History ezetimibe 10 mg tablet 10 mg PO DAILY 09/24/22 11/04/23 History omeprazole 40 mg capsule,delayed 40 mg PO DAILY 09/24/22 11/04/23 History release narqfwty-hueznijqy-rqsfzeejp 3.5 4 drp otic (ear) Q8H #10 mL 11/18/22 11/04/23 Rx mg-10,000 unit/mL-1 % ear drops,susp Current Medications: Active Medications Acetaminophen (Acetaminophen 325 Mg Tablet) 650 mg PO Q4H PRN PRN Reason: Mild Pain (1-3) or Fever Last Admin: 11/05/23 11:01 Dose: 650 mg Hydralazine HCl (Hydralazine Hcl 20 Mg/Ml Vial) 10 mg IV PUSH Q8H PRN PRN Reason: Blood Pressure - High Piperacillin/Tazobactam/Dextrose (Zosyn 3.375 Gm/Ns 50 Ml) 3.375 gm in 50 mls @ 100 mls/hr IVPB Q6HR [facility] Last Admin: 11/05/23 05:03 Dose: 100 mls/hr Sodium Chloride (Normal Saline Iv) 1,000 mls @ 125 mls/hr IV CONT .Q8H [facility] Last Admin: 11/05/23 10:39 Dose: 125 mls/hr Metronidazole (Flagyl 500 Mg/Iso Soln 100 Ml) 500 mg in 100 mls @ 100 mls/hr IVPB Q8H [facility] Last Admin: 11/05/23 10:23 Dose: 100 mls/hr Morphine Sulfate (Morphine Sulfate (*Crx) 2 Mg/Ml Inj) 2 mg IV PUSH Q2H PRN PRN Reason: Pain Rated 7-10 Last Admin: 11/05/23 06:10 Dose: 2 mg Multi-Ingred Cream/Lotion/Oil/Oint (Eucerin Cream 120 Gm Jar) 1 applic TOPICAL DAILY [facility] Last Admin: 11/05/23 10:23 Dose: 1 applic Neomycin/Polymyxin/Hydrocortisone (Neomycin/Polymyxin/Hydrocort Ot Susp 10 Ml Btl (*Bkc)) 4 drop EACH EAR Q8HR [facility] Last Admin: 11/05/23 05:04 Dose: 4 drop Ondansetron HCl (Ondansetron Inj 4 Mg/2 Ml Vial) 4 mg IV PUSH Q4H PRN PRN Reason: Nausea Pantoprazole Sodium (Pantoprazole Sodium Iv 40 Mg Vial) 40 mg IV PUSH QAM [facility] Last Admin: 11/05/23 10:24 Dose: 40 mg Sedation/Anesthesia: No previous sedation/anesthesia problems (including family history). 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 Hypertension Thyroid mass benign follicular nodule, 10/09/22 Surgical History Surgical History History of hysterectomy Social History Social History Smoking packs per day: 1 Smoking cigarettes per day: 20.0 Smoking status: Current every day smoker Tobacco type: cigarettes Alcohol intake: never Substance use: never Do You Feel Safe in your Home?: Yes Lack of Transportation: No Lack of Food: Never True Current Housing: I Have Housing Concerned About Future Housing: No Difficulty Paying Gas/Electric Bills: No Difficulty Paying for Meds: No Currently Unemployed: No Education: Trade/Vocational Certificate Difficulty w/ Childcare or Family Care: No Living arrangements: alone Gender identity (if verbalized by the patient): Female Spiritual care concerns: No Mod Sed Physical Exam Physical Exam Pre Procedural Exam: Normal: Appearance, Throat, Lungs, Heart Rate and Heart Rhythm Hours since solid foods: 12 Hours since liquid intake: 12 Mallampati Classification: class II Internal Medicine - PN: Obj Da Vital Signs Vital Signs: Vital Signs - 24 hr 11/04/23 15:20 11/04/23 16:42 11/04/23 15:53 Temperature 98.3 F 98.2 F Pulse Rate 88 81 87 Respiratory Rate 16 18 20 Blood Pressure 128/78 104/79 Pulse Oximetry 99 96 96 Oxygen Delivery Fraction of Inspired Oxygen 11/04/23 16:00 11/04/23 16:21 11/04/23
[2023-11-05] MEDS: GABAPENTIN 300 MG CAPSULE PO (18:14)
[2023-11-05] MEDS: NYSTATIN 100,000 UNITS/ML SUSP 5 ML ORAL.SUSP PO (20:15)
[2023-11-05 21:40] LABS: Magnesium 1.9 mg/dL (1.6-2.3); Phosphorus 2.6 mg/dL (2.5-4.5)
[2023-11-06] VITALS (9 sets, daily range): BP systolic 117–125; BP diastolic 60–77; PULSE 75–88; RESP 16–17; TEMP 36.3–36.9; O2SAT 94–97
[2023-11-06] MEDS: metroNIDAZOLE 500 MG/ISO 100ML 500 MG/100 ML BAG 100 MG IVPB ×3 (00:10→18:02)
[2023-11-06] MEDS: MORPHINE SULFATE (*CRX) 2 MG/ML INJ IV PUSH (00:44)
[2023-11-06] MEDS: PIPERACILLN/TAZ 3.375GM/NS50ML 3.375 GM/50 ML BAG IVPB ×3 (05:10→18:45)
[2023-11-06 05:39] LABS: Hematocrit 29.8 % (37.0-47.0); Hemoglobin 10.1 g/dL (12.0-15.0); Mean Corpuscular HGB Conc 33.9 g/dl (32-36); Mean Corpuscular Volume 91.4 fl (80-100); Mean Platelet Volume 9.8 fl (7.4-10.4); Platelet Count Result 291 k/mm3 (150-375); Red Blood Count 3.26 M/mm3 (4.2-5.4); Red Cell Distribution Width 15.1 % (11.5-14.5); White Blood Count 12.9 K/mm3 (4.5-10.0)
[2023-11-06 05:50] LABS: Anion Gap 4 mmol/L (4-12); Blood Urea Nitrogen 6 mg/dL (7-17); Calcium 7.8 mg/dL (8.4-10.2); Carbon Dioxide 24 mmol/L (22-30); Chloride 112 mmol/L (98-107); Estimated CRCL calculation 65 ml/min; Estimated Glomerular Filt Rate > 60; Glucose 102 mg/dL (65-110); Sodium 140 mmol/L (137-145)
--- NOTE | 2023-11-06 07:45 | P.PNIM_ITS ---
Progress Note: A&P Assessment and Plan (1) Sepsis: Code(s): A41.9 - Sepsis, unspecified organism Status: Acute Assessment and Plan: - meets SIRS criteria: HR, WBC. No hypotension or hypoxia. - lactic acid: 1.0 - 30 mL/kg = 2300. given 1L bolus of NS, adding 1L bolus of LR -> 125 mL/hr of NS. - suspected source: diverticulitis, perisigmoid abscess - started on Zosyn and Flagyl on 11/03 - blood cultures drawn on 11/03 - UA: specific gravity 1.039, otherwise unremarkable 11/04: * WBC downtrending. 25-->19.1 * afebrile overnight * Blood pressures stable * Continue Zosyn and Flagyl per surgery * blood cultures pending 11/05: * Leukocytosis still resolving. White count 12.9 today * Afebrile overnight * Preliminary read on blood cultures with no growth (2) Sigmoid diverticulitis: Code(s): K57.32 - Diverticulitis of large intestine without perforation or abscess without bleeding Status: Deleted Assessment and Plan: - CT abd/pelvis: Sigmoid diverticulitis with perisigmoid abscess. 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 - started on Zosyn and Flagyl on 11/03 - WBC 25 - IV fluids and monitor I&Os - trend labs 11/04: * surgery consult, rec's appreciated * NPO for possible intervention * Zosyn, Flagyl, and IVF * morphine prn for pain, Zofran prn for nausea 11/05: * IR drain was placed yesterday. Drain was displaced when patient got up to go to the restroom. * CT abdomen pelvis shows drain no longer in abscess * Patient made NPO for possible drain replacement today * Decreased IV fluids to 100 ml/hr (3) Abscess of sigmoid colon due to diverticulitis: Code(s): K57.20 - Diverticulitis of large intestine with perforation and abscess without bleeding Status: Deleted Assessment and Plan: - CT abd/pelvis: sigmoid diverticulitis with perisigmoid abscess. 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 - General Surgery consulted, awaiting recs - NPO See plan 2 (4) Hypokalemia: Code(s): E87.6 - Hypokalemia Status: Acute Assessment and Plan: - K 2.6 - starting repletion with KCl 40 IVPB and one time dose of 40 mg PO - repeat bmp at 2200 - continue to trend/correct 11/04: * K+ 3.3, phos 2.3 * IVP K+Phos replacement ordered * On telemetry 11/05: * K+ 3.0, Mag pending * Ordered 40 mEq of oral K and 40 mEq IV x1 * Telemetry (5) Hypertension: Code(s): I10 - Essential (primary) hypertension Status: Acute Assessment and Plan: - chronic, currently 120/96 - hold home medication: amlodipine PO - add hydralazine q.8 hours p.r.n. for HTN given NPO status - monitor 11/04: * Blood pressures reviewed and are stable. * Continue to hold home agents in setting of sepsis. 11/05: * Blood pressures reviewed and are stable (6) History of shingles: Code(s): Z86.19 - Personal history of other infectious and parasi
--- NOTE | 2023-11-06 07:45 | PM.IMPN ---
Progress Note: A&P Assessment and Plan (1) Sepsis: Code(s): A41.9 - Sepsis, unspecified organism Status: Acute Assessment and Plan: - meets SIRS criteria: HR, WBC. No hypotension or hypoxia. - lactic acid: 1.0 - 30 mL/kg = 2300. given 1L bolus of NS, adding 1L bolus of LR -> 125 mL/hr of NS. - suspected source: diverticulitis, perisigmoid abscess - started on Zosyn and Flagyl on 11/03 - blood cultures drawn on 11/03 - UA: specific gravity 1.039, otherwise unremarkable 11/04: WBC downtrending. 25-->19.1 afebrile overnight Blood pressures stable Continue Zosyn and Flagyl per surgery blood cultures pending 11/05: Leukocytosis still resolving. White count 12.9 today Afebrile overnight Preliminary read on blood cultures with no growth (2) Sigmoid diverticulitis: Code(s): K57.32 - Diverticulitis of large intestine without perforation or abscess without bleeding Status: Deleted Assessment and Plan: - CT abd/pelvis: Sigmoid diverticulitis with perisigmoid abscess. 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 - started on Zosyn and Flagyl on 11/03 - WBC 25 - IV fluids and monitor I&Os - trend labs 11/04: surgery consult, rec's appreciated NPO for possible intervention Zosyn, Flagyl, and IVF morphine prn for pain, Zofran prn for nausea 11/05: IR drain was placed yesterday. Drain was displaced when patient got up to go to the restroom. CT abdomen pelvis shows drain no longer in abscess Patient made NPO for possible drain replacement today Decreased IV fluids to 100 ml/hr (3) Abscess of sigmoid colon due to diverticulitis: Code(s): K57.20 - Diverticulitis of large intestine with perforation and abscess without bleeding Status: Deleted Assessment and Plan: - CT abd/pelvis: sigmoid diverticulitis with perisigmoid abscess. 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 - General Surgery consulted, awaiting recs - NPO See plan 2 (4) Hypokalemia: Code(s): E87.6 - Hypokalemia Status: Acute Assessment and Plan: - K 2.6 - starting repletion with KCl 40 IVPB and one time dose of 40 mg PO - repeat bmp at 2200 - continue to trend/correct 11/04: K+ 3.3, phos 2.3 IVP K+Phos replacement ordered On telemetry 11/05: K+ 3.0, Mag pending Ordered 40 mEq of oral K and 40 mEq IV x1 Telemetry (5) Hypertension: Code(s): I10 - Essential (primary) hypertension Status: Acute Assessment and Plan: - chronic, currently 120/96 - hold home medication: amlodipine PO - add hydralazine q.8 hours p.r.n. for HTN given NPO status - monitor 11/04: Blood pressures reviewed and are stable. Continue to hold home agents in setting of sepsis. 11/05: Blood pressures reviewed and are stable (6) History of shingles: Code(s): Z86.19 - Personal history of other infectious and parasitic diseases Status: Acute Assessment and Plan: -recently was seen in [place] ED in August with a vesicular rash to her face with associated pain. She was given Valtrex and completed treatment per her reports. 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 -can add gabapentin 300 mg TID for pain 11/05: reports improvement in pain with gabapentin (7) Thrush: Code(s): B37.0 - Candidal stomatitis Status: Acute Assessment and Plan: -patient complaining of a sore throat -oral exam concerning for thrush -Added oral nystatin swish and swallow -tongue with white plaque 11/05: pain is improving with nystatin swish and spit Plan Patient here with abdominal pain, nausea, and vomiting. Found to have diverticulitis, perisigmoid abscess, and possible fistula. Blood cultures obtained, started on Zosyn and Flagyl. General surgery consulted and awaiting recs. NPO. Continue to rehydrate. home p.o. medicat
[2023-11-06 08:37] LABS: Magnesium 1.9 mg/dL (1.6-2.3)
[2023-11-06] MEDS: GABAPENTIN 300 MG CAPSULE PO ×3 (09:43→18:02)
[2023-11-06] MEDS: POTASSIUM CHLORIDE 20 MEQ ER TABLET 40 MEQ PO (09:43)
[2023-11-06] MEDS: PANTOPRAZOLE SODIUM IV 40 MG VIAL IV PUSH (09:46)
[2023-11-06] MEDS: EUCERIN CREAM 120 GM JAR 1 APPLIC TOPICAL (09:46)
[2023-11-06] MEDS: NYSTATIN 100,000 UNITS/ML SUSP 5 ML ORAL.SUSP PO ×4 (09:46→20:46)
[2023-11-06] MEDS: ACETAMINOPHEN 325 MG TABLET 650 MG PO ×2 (10:02→18:44)
[2023-11-06] MEDS: POTASSIUM CHLORIDE INJ 40 MEQ in SODIUM CHLORIDE 0.9% IV 500 ML 130 MEQ IVPB (12:02)
[2023-11-06] MEDS: NEOMYCIN/POLYMYXIN/HYDROCORT OT SUSP 10 ML BTL (*BKC) 4 DROP EACH EAR ×2 (13:42→20:46)
[2023-11-07] VITALS (9 sets, daily range): BP systolic 119–138; BP diastolic 74–82; PULSE 76–91; RESP 18; TEMP 36.5–37.4; O2SAT 92–99
[2023-11-07] MEDS: metroNIDAZOLE 500 MG/ISO 100ML 500 MG/100 ML BAG 100 MG IVPB ×3 (00:54→18:24)
[2023-11-07] MEDS: ACETAMINOPHEN 325 MG TABLET 650 MG PO (03:03)
[2023-11-07] MEDS: PIPERACILLN/TAZ 3.375GM/NS50ML 3.375 GM/50 ML BAG IVPB ×5 (05:00→23:50)
--- NOTE | 2023-11-07 08:00 | P.PNIM_ITS ---
Progress Note: A&P Assessment and Plan (1) Sepsis: Code(s): A41.9 - Sepsis, unspecified organism Status: Acute Assessment and Plan: - meets SIRS criteria: HR, WBC. No hypotension or hypoxia. - lactic acid: 1.0 - 30 mL/kg = 2300. given 1L bolus of NS, adding 1L bolus of LR -> 125 mL/hr of NS. - suspected source: diverticulitis, perisigmoid abscess - started on Zosyn and Flagyl on 11/03 - blood cultures drawn on 11/03 - UA: specific gravity 1.039, otherwise unremarkable 11/04: * WBC downtrending. 25-->19.1 * afebrile overnight * Blood pressures stable * Continue Zosyn and Flagyl per surgery * blood cultures pending 11/05: * Leukocytosis still resolving. White count 12.9 today * Afebrile overnight * Preliminary read on blood cultures with no growth 11/06: * WBC increased to 12.9-->15.9 * afebrile, remainder of VSS * Culture from abscess is growing streptococcus anginosus. On Zosyn. * May need repeat CT abdomen and pelvis if WBC continues to rise (2) Sigmoid diverticulitis: Code(s): K57.32 - Diverticulitis of large intestine without perforation or abscess without bleeding Status: Deleted Assessment and Plan: - CT abd/pelvis: Sigmoid diverticulitis with perisigmoid abscess. 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 - started on Zosyn and Flagyl on 11/03 - WBC 25 - IV fluids and monitor I&Os - trend labs 11/04: * surgery consult, rec's appreciated * NPO for possible intervention * Zosyn, Flagyl, and IVF * morphine prn for pain, Zofran prn for nausea 11/05: * IR drain was placed yesterday. Drain was displaced when patient got up to go to the restroom. * CT abdomen pelvis shows drain no longer in abscess * Patient made NPO for possible drain replacement today * Decreased IV fluids to 100 ml/hr 11/06: * IVF D/c'd * regular diet * having loose stools--add probiotic (3) Abscess of sigmoid colon due to diverticulitis: Code(s): K57.20 - Diverticulitis of large intestine with perforation and abscess without bleeding Status: Deleted Assessment and Plan: - CT abd/pelvis: sigmoid diverticulitis with perisigmoid abscess. 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 - General Surgery consulted, awaiting recs - NPO See plan 2 (4) Hypokalemia: Code(s): E87.6 - Hypokalemia Status: Acute Assessment and Plan: - K 2.6 - starting repletion with KCl 40 IVPB and one time dose of 40 mg PO - repeat bmp at 2200 - continue to trend/correct 11/04: * K+ 3.3, phos 2.3 * IVP K+Phos replacement ordered * On telemetry 11/05: * K+ 3.0, Mag pending * Ordered 40 mEq of oral K and 40 mEq IV x1 * Telemetry 11/06: K+ 3.0, replace with K 40 meq (5) Hypertension: Code(s): I10 - Essential (primary) hypertension Status: Acute Assessment and Plan: - chronic, currently 120/96 - hold home medication: amlodipine PO - add hydralazine q.8 hours p.r.n. for HTN given NPO status - monitor 11/04: Blanca Feliciano
--- NOTE | 2023-11-07 08:00 | PM.IMPN ---
Progress Note: A&P Assessment and Plan (1) Sepsis: Code(s): A41.9 - Sepsis, unspecified organism Status: Acute Assessment and Plan: - meets SIRS criteria: HR, WBC. No hypotension or hypoxia. - lactic acid: 1.0 - 30 mL/kg = 2300. given 1L bolus of NS, adding 1L bolus of LR -> 125 mL/hr of NS. - suspected source: diverticulitis, perisigmoid abscess - started on Zosyn and Flagyl on 11/03 - blood cultures drawn on 11/03 - UA: specific gravity 1.039, otherwise unremarkable 11/04: WBC downtrending. 25-->19.1 afebrile overnight Blood pressures stable Continue Zosyn and Flagyl per surgery blood cultures pending 11/05: Leukocytosis still resolving. White count 12.9 today Afebrile overnight Preliminary read on blood cultures with no growth 11/06: WBC increased to 12.9-->15.9 afebrile, remainder of VSS Culture from abscess is growing streptococcus anginosus. On Zosyn. May need repeat CT abdomen and pelvis if WBC continues to rise (2) Sigmoid diverticulitis: Code(s): K57.32 - Diverticulitis of large intestine without perforation or abscess without bleeding Status: Deleted Assessment and Plan: - CT abd/pelvis: Sigmoid diverticulitis with perisigmoid abscess. 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 - started on Zosyn and Flagyl on 11/03 - WBC 25 - IV fluids and monitor I&Os - trend labs 11/04: surgery consult, rec's appreciated NPO for possible intervention Zosyn, Flagyl, and IVF morphine prn for pain, Zofran prn for nausea 11/05: IR drain was placed yesterday. Drain was displaced when patient got up to go to the restroom. CT abdomen pelvis shows drain no longer in abscess Patient made NPO for possible drain replacement today Decreased IV fluids to 100 ml/hr 11/06: IVF D/c'd regular diet having loose stools--add probiotic (3) Abscess of sigmoid colon due to diverticulitis: Code(s): K57.20 - Diverticulitis of large intestine with perforation and abscess without bleeding Status: Deleted Assessment and Plan: - CT abd/pelvis: sigmoid diverticulitis with perisigmoid abscess. 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 - General Surgery consulted, awaiting recs - NPO See plan 2 (4) Hypokalemia: Code(s): E87.6 - Hypokalemia Status: Acute Assessment and Plan: - K 2.6 - starting repletion with KCl 40 IVPB and one time dose of 40 mg PO - repeat bmp at 2200 - continue to trend/correct 11/04: K+ 3.3, phos 2.3 IVP K+Phos replacement ordered On telemetry 11/05: K+ 3.0, Mag pending Ordered 40 mEq of oral K and 40 mEq IV x1 Telemetry 11/06: K+ 3.0, replace with K 40 meq (5) Hypertension: Code(s): I10 - Essential (primary) hypertension Status: Acute Assessment and Plan: - chronic, currently 120/96 - hold home medication: amlodipine PO - add hydralazine q.8 hours p.r.n. for HTN given NPO status - monitor 11/04: Blood pressures reviewed and are stable. Continue to hold home agents in setting of sepsis. 11/05: Blood pressures reviewed and are stable (6) History of shingles: Code(s): Z86.19 - Personal history of other infectious and parasitic diseases Status: Acute Assessment and Plan: -recently was seen in [place] ED in August with a vesicular rash to her face with associated pain. She was given Valtrex and completed treatment per her reports. 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 -can add gabapentin 300 mg TID for pain 11/05: reports improvement in pain with gabapentin (7) Thrush: Code(s): B37.0 - Candidal stomatitis Status: Acute Assessment and Plan: -patient complaining of a sore throat -oral exam concerning for thrush -Added oral nystatin swish and swallow -tongue with white plaque 11/05: pain is impro
[2023-11-07 08:28] LABS: Basophils Percent Auto 0.2 % (0.2-1.2); Eosinophils Percent Auto 0.2 % (0-4.4); Hematocrit 32.5 % (37.0-47.0); Hemoglobin 10.7 g/dL (12.0-15.0); Immature Granulocyte Absolute 0.14 K/mm3 (0.00-0.031); Immature Granulocyte Percent A 0.9 % (0-0.5); Lymphocytes Absolute Auto 1.16 K/mm3 (0.9-3.2); Lymphocytes Percent Auto 7.3 % (18.3-44.2); Mean Corpuscular HGB Conc 32.9 g/dl (32-36); Mean Corpuscular Hemoglobin 30.5 pg (26-34); Mean Corpuscular Volume 92.6 fl (80-100); Mean Platelet Volume 9.4 fl (7.4-10.4); Monocytes Absolute Auto 1.1 K/mm3 (0.1-0.6); Monocytes Percent Auto 6.7 % (2.6-8.5); Neutrophils Absolute Auto 13.5 K/mm3 (1.3-6.7); Neutrophils Percent Auto 84.7 % (45.5-73.1); Platelet Count Result 355 k/mm3 (150-375); Red Blood Count 3.51 M/mm3 (4.2-5.4); White Blood Count 15.9 K/mm3 (4.5-10.0)
[2023-11-07 08:44] LABS: Magnesium 1.7 mg/dL (1.6-2.3)
[2023-11-07 08:45] LABS: Alanine Aminotransferase 17 U/L (6-35); Albumin Level 3.1 g/dL (3.5-5.1); Alkaline Phosphatase 74 U/L (38-126); Anion Gap 4 mmol/L (4-12); Aspartate Amino Transferase 27 U/L (14-36); Bilirubin,Total 0.8 mg/dL (0.2-1.3); Blood Urea Nitrogen 2 mg/dL (7-17); Carbon Dioxide 29 mmol/L (22-30); Chloride 105 mmol/L (98-107); Estimated CRCL calculation 65 ml/min; Estimated Glomerular Filt Rate > 60; Glucose 97 mg/dL (65-110); Potassium 3.1 mmol/L (3.4-5.0); Sodium 138 mmol/L (137-145)
[2023-11-07] MEDS: GABAPENTIN 300 MG CAPSULE PO ×3 (08:49→17:30)
[2023-11-07] MEDS: EUCERIN CREAM 120 GM JAR 1 APPLIC TOPICAL (08:50)
[2023-11-07] MEDS: NYSTATIN 100,000 UNITS/ML SUSP 5 ML ORAL.SUSP PO ×4 (08:50→20:57)
[2023-11-07] MEDS: PANTOPRAZOLE SODIUM IV 40 MG VIAL IV PUSH (08:50)
[2023-11-07] MEDS: MORPHINE SULFATE (*CRX) 2 MG/ML INJ IV PUSH (08:55)
[2023-11-07] MEDS: NEOMYCIN/POLYMYXIN/HYDROCORT OT SUSP 10 ML BTL (*BKC) 4 DROP EACH EAR (13:03)
--- NOTE | 2023-11-07 14:57 | WPDPN ---
Progress Note: A&P Assessment and Plan (1) Diverticulitis of large intestine with abscess: Code(s): K57.20 - Diverticulitis of large intestine with perforation and abscess without bleeding Status: Acute Assessment and Plan: Clinically she was showing some improvement after the initial drained was placed. Drain is now pulled out of the abscess cavity and removed at the bedside today. After decompression of the abscess it was too small to replace another drain. Continue on IV antibiotics for now. We will need to rescanned her tomorrow for white blood count continues to increase and she has worsening pelvic pain. To abscess has enlarged that she will likely need another pelvic drain. Other option would be proceeding with laparotomy and sigmoid resection and end colostomy. Repeat labs in the morning. Subjective Date/time seen: 11/07/23 14:57 Interval history: Patient seems to be better. Less left lower quadrant abdominal pain. She was on a low residual diet and tolerating solid food and had quite a bit of diarrhea. CT scan showed at the pelvic drain is dislodged from the abscess but the abscess cavity was much smaller. I removed the drainage catheter today since is no longer proper position. No fever. White blood cell count increased to 15,900. Who continues to increase tomorrow then will need another CT scan and if the abscess has enlarged than another IR directed percutaneous drain. Exam Const: General: comfortable and no acute distress Resp: Effort & Inspection: normal respiratory effort Auscultation: clear to auscultation bilaterally Cardio: Rate: regular rate Rhythm: regular rhythm GI: Other: Abdomen is soft and nondistended. Transgluteal drain site without redness or drainage, essentially no drainage due to the fact the drain is not a right position. Mild tenderness palpation left lower quadrant. No generalized peritoneal signs. Objective Data Vital Signs Vital Signs: Vital Signs - 24 hr 11/06/23 16:00 11/06/23 20:00 11/06/23 21:55 Temperature 36.9 C Pulse Rate 83 88 Respiratory Rate 17 Blood Pressure 118/72 Pulse Oximetry 95 Oxygen Delivery Room Air 11/06/23 20:00 11/07/23 00:00 11/07/23 04:00 Temperature Pulse Rate 82 76 80 Respiratory Rate Blood Pressure Pulse Oximetry Oxygen Delivery 11/07/23 05:47 11/07/23 08:00 11/07/23 12:00 Temperature 37.1 C Pulse Rate 83 81 91 Respiratory Rate 18 Blood Pressure 138/82 Pulse Oximetry 92 Oxygen Delivery 11/07/23 08:50 11/07/23 13:35 Temperature 37.4 C Pulse Rate 89 Respiratory Rate 18 Blood Pressure 119/74 Pulse Oximetry 99 Oxygen Delivery Room Air Intake/Output Intake/Output: Intake & Output 11/04/23 11/05/23 11/06/23 11/07/23 23:59 23:59 23:59 23:59 Intake Total 50 2620 2500 300 Output Total 300 1500 2200 Balance -250 1120 300 300 Meds/Results Medications: Active Medications Generic Name Dose Route Start Last Admin Trade Name Freq PRN Reason Stop Dose Admin Acetaminophen 650 mg 11/04/23 20:45 11/07/23 03:03 Acetaminophen 325 Mg Tablet PO 650 mg Q4H PRN Administration Mild Pain (1-3) or Fever Gabapentin 300 mg 11/05/23 17:20 11/07/23 12:55 Gabapentin 300 Mg Capsule PO 300 mg TID MANASA Administration Hydralazine HCl 10 mg 11/04/23 20:42 Hydralazine Hcl 20 Mg/Ml Vial IV PUSH Q8H PRN Blood Pressure - High Piperacillin/Tazobactam/Dextrose 3.375 gm in 50 mls @ 100 mls/hr 11/05/23 00:00 11/07/23 12:55 Zosyn 3.375 Gm/Ns 50 Ml IVPB 100 mls/hr Q6HR MANASA Administration Metronidazole 500 mg in 100 mls @ 100 mls/hr 11/05/23 09:00 11/07/23 09:49 Flagyl 500 Mg/Iso Soln 100 Ml IVPB Infused Q8H MANASA Infusion Morphine Sulfate 2 mg 11/04/23 17:09 11/07/23 08:55 Morphine Sulfate (*Crx) 2 Mg/Ml Inj IV PUSH 2 mg Q2H PRN Administration Pain Rated 7-10 Multi-Ingred Cream/Lotion/Oil/Oint
[2023-11-07] MEDS: POTASSIUM CHLORIDE 20 MEQ ER TABLET 40 MEQ PO (17:30)
[2023-11-07] MEDS: SACCHAROMYCES BOULARDII 250 MG CAPSULE PO (17:30)
[2023-11-08] VITALS (9 sets, daily range): BP systolic 119–128; BP diastolic 69–78; PULSE 74–94; RESP 18–20; TEMP 36.7–37; O2SAT 98–100
[2023-11-08] MEDS: metroNIDAZOLE 500 MG/ISO 100ML 500 MG/100 ML BAG 100 MG IVPB ×3 (01:10→18:32)
[2023-11-08] MEDS: MORPHINE SULFATE (*CRX) 2 MG/ML INJ IV PUSH (02:38)
[2023-11-08 05:26] LABS: Basophils Absolute Auto 0.1 K/mm3 (0.0-0.1); Basophils Percent Auto 0.3 % (0.2-1.2); Eosinophils Percent Auto 0.1 % (0-4.4); Hematocrit 30.3 % (37.0-47.0); Hemoglobin 10.1 g/dL (12.0-15.0); Immature Granulocyte Absolute 0.19 K/mm3 (0.00-0.031); Lymphocytes Absolute Auto 1.46 K/mm3 (0.9-3.2); Lymphocytes Percent Auto 7.9 % (18.3-44.2); Mean Corpuscular HGB Conc 33.3 g/dl (32-36); Mean Corpuscular Hemoglobin 30.6 pg (26-34); Mean Corpuscular Volume 91.8 fl (80-100); Mean Platelet Volume 10.1 fl (7.4-10.4); Monocytes Absolute Auto 1.1 K/mm3 (0.1-0.6); Monocytes Percent Auto 6.1 % (2.6-8.5); Neutrophils Absolute Auto 15.7 K/mm3 (1.3-6.7); Neutrophils Percent Auto 84.6 % (45.5-73.1); Platelet Count Result 347 k/mm3 (150-375); White Blood Count 18.5 K/mm3 (4.5-10.0)
[2023-11-08] MEDS: PIPERACILLN/TAZ 3.375GM/NS50ML 3.375 GM/50 ML BAG IVPB ×4 (06:10→23:22)
[2023-11-08] MEDS: NEOMYCIN/POLYMYXIN/HYDROCORT OT SUSP 10 ML BTL (*BKC) 4 DROP EACH EAR ×2 (06:15→21:51)
[2023-11-08] MEDS: ACETAMINOPHEN 325 MG TABLET 650 MG PO ×2 (06:20→22:09)
[2023-11-08 06:43] LABS: Alanine Aminotransferase 16 U/L (6-35); Albumin Level 2.9 g/dL (3.5-5.1); Alkaline Phosphatase 68 U/L (38-126); Anion Gap 9 mmol/L (4-12); Aspartate Amino Transferase 30 U/L (14-36); Bilirubin,Total 0.8 mg/dL (0.2-1.3); Blood Urea Nitrogen 5 mg/dL (7-17); Calcium 8.1 mg/dL (8.4-10.2); Carbon Dioxide 23 mmol/L (22-30); Chloride 108 mmol/L (98-107); Estimated CRCL calculation 65 ml/min; Estimated Glomerular Filt Rate > 60; Glucose 91 mg/dL (65-110); Magnesium 1.7 mg/dL (1.6-2.3); Potassium 3.5 mmol/L (3.4-5.0); Sodium 140 mmol/L (137-145)
--- NOTE | 2023-11-08 07:15 | P.PNIM_ITS ---
Progress Note: A&P Assessment and Plan (1) Sepsis: Code(s): A41.9 - Sepsis, unspecified organism Status: Acute Assessment and Plan: - meets SIRS criteria: HR, WBC. No hypotension or hypoxia. - lactic acid: 1.0 - 30 mL/kg = 2300. given 1L bolus of NS, adding 1L bolus of LR -> 125 mL/hr of NS. - suspected source: diverticulitis, perisigmoid abscess - started on Zosyn and Flagyl on 11/03 - blood cultures drawn on 11/03 - UA: specific gravity 1.039, otherwise unremarkable 11/04: * WBC downtrending. 25-->19.1 * afebrile overnight * Blood pressures stable * Continue Zosyn and Flagyl per surgery * blood cultures pending 11/05: * Leukocytosis still resolving. White count 12.9 today * Afebrile overnight * Preliminary read on blood cultures with no growth 11/06: * WBC increased to 12.9-->15.9 * afebrile, remainder of VSS * Culture from abscess is growing streptococcus anginosus. On Zosyn. * May need repeat CT abdomen and pelvis if WBC continues to rise 11/07: * WBC 12.9-->--15.9-->18.5 * Afebrile * Continue Zosyn and Flagyl * Ordered CT abdomen/pelvis shows 6.7 x 6.2 x 3.3 cm perisigmoid abscess * NPO at [place] for drain placement 11/08 * Also ordered stool sample to r/o c-diff as she has been having frequent bowel movements (2) Sigmoid diverticulitis: Code(s): K57.32 - Diverticulitis of large intestine without perforation or abscess without bleeding Status: Deleted Assessment and Plan: - CT abd/pelvis: Sigmoid diverticulitis with perisigmoid abscess. 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 - started on Zosyn and Flagyl on 11/03 - WBC 25 - IV fluids and monitor I&Os - trend labs 11/04: * surgery consult, rec's appreciated * NPO for possible intervention * Zosyn, Flagyl, and IVF * morphine prn for pain, Zofran prn for nausea 11/05: * IR drain was placed yesterday. Drain was displaced when patient got up to go to the restroom. * CT abdomen pelvis shows drain no longer in abscess * Patient made NPO for possible drain replacement today * Decreased IV fluids to 100 ml/hr 11/06: * IVF D/c'd * regular diet * having loose stools--add probiotic 11/07: * c-diff ordered (3) Abscess of sigmoid colon due to diverticulitis: Code(s): K57.20 - Diverticulitis of large intestine with perforation and abscess without bleeding Status: Deleted Assessment and Plan: - CT abd/pelvis: sigmoid diverticulitis with perisigmoid abscess. 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 - General Surgery consulted, awaiting recs - NPO See plan 2 (4) Hypokalemia: Code(s): E87.6 - Hypokalemia Status: Acute Assessment and Plan: - K 2.6 - starting repletion with KCl 40 IVPB and one time dose of 40 mg PO - repeat bmp at 2200 - continue to trend/correct 11/04: * K+ 3.3, phos 2.3 * IVP K+Phos replacement ordered * On telemetry 11/05: * K+ 3.0, Mag pending * Ordered 40 mEq of oral K and 40 mEq IV x1 * Telemetry 11/06: * K+ 3.0, replace with K 40 meq 11/07: * K 3.5 meq
--- NOTE | 2023-11-08 07:15 | PM.IMPN ---
Progress Note: A&P Assessment and Plan (1) Sepsis: Code(s): A41.9 - Sepsis, unspecified organism Status: Acute Assessment and Plan: - meets SIRS criteria: HR, WBC. No hypotension or hypoxia. - lactic acid: 1.0 - 30 mL/kg = 2300. given 1L bolus of NS, adding 1L bolus of LR -> 125 mL/hr of NS. - suspected source: diverticulitis, perisigmoid abscess - started on Zosyn and Flagyl on 11/03 - blood cultures drawn on 11/03 - UA: specific gravity 1.039, otherwise unremarkable 11/04: WBC downtrending. 25-->19.1 afebrile overnight Blood pressures stable Continue Zosyn and Flagyl per surgery blood cultures pending 11/05: Leukocytosis still resolving. White count 12.9 today Afebrile overnight Preliminary read on blood cultures with no growth 11/06: WBC increased to 12.9-->15.9 afebrile, remainder of VSS Culture from abscess is growing streptococcus anginosus. On Zosyn. May need repeat CT abdomen and pelvis if WBC continues to rise 11/07: WBC 12.9-->--15.9-->18.5 Afebrile Continue Zosyn and Flagyl Ordered CT abdomen/pelvis shows 6.7 x 6.2 x 3.3 cm perisigmoid abscess NPO at [place] for drain placement 11/08 Also ordered stool sample to r/o c-diff as she has been having frequent bowel movements (2) Sigmoid diverticulitis: Code(s): K57.32 - Diverticulitis of large intestine without perforation or abscess without bleeding Status: Deleted Assessment and Plan: - CT abd/pelvis: Sigmoid diverticulitis with perisigmoid abscess. 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 - started on Zosyn and Flagyl on 11/03 - WBC 25 - IV fluids and monitor I&Os - trend labs 11/04: surgery consult, rec's appreciated NPO for possible intervention Zosyn, Flagyl, and IVF morphine prn for pain, Zofran prn for nausea 11/05: IR drain was placed yesterday. Drain was displaced when patient got up to go to the restroom. CT abdomen pelvis shows drain no longer in abscess Patient made NPO for possible drain replacement today Decreased IV fluids to 100 ml/hr 11/06: IVF D/c'd regular diet having loose stools--add probiotic 11/07: c-diff ordered (3) Abscess of sigmoid colon due to diverticulitis: Code(s): K57.20 - Diverticulitis of large intestine with perforation and abscess without bleeding Status: Deleted Assessment and Plan: - CT abd/pelvis: sigmoid diverticulitis with perisigmoid abscess. 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 - General Surgery consulted, awaiting recs - NPO See plan 2 (4) Hypokalemia: Code(s): E87.6 - Hypokalemia Status: Acute Assessment and Plan: - K 2.6 - starting repletion with KCl 40 IVPB and one time dose of 40 mg PO - repeat bmp at 2200 - continue to trend/correct 11/04: K+ 3.3, phos 2.3 IVP K+Phos replacement ordered On telemetry 11/05: K+ 3.0, Mag pending Ordered 40 mEq of oral K and 40 mEq IV x1 Telemetry 11/06: K+ 3.0, replace with K 40 meq 11/07: K 3.5 meq (5) Hypertension: Code(s): I10 - Essential (primary) hypertension Status: Acute Assessment and Plan: - chronic, currently 120/96 - hold home medication: amlodipine PO - add hydralazine q.8 hours p.r.n. for HTN given NPO status - monitor 11/04: Blood pressures reviewed and are stable. Continue to hold home agents in setting of sepsis. 11/05: Blood pressures reviewed and are stable 11/06: 128/78, HR 78 (6) History of shingles: Code(s): Z86.19 - Personal history of other infectious and parasitic diseases Status: Acute Assessment and Plan: -recently was seen in [place] ED in August with a vesicular rash to her face with associated pain. She was given Valtrex and completed treatment per her reports. 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 -can add gabapen
[2023-11-08] MEDS: SACCHAROMYCES BOULARDII 250 MG CAPSULE PO ×2 (08:48→18:30)
[2023-11-08] MEDS: POTASSIUM CHLORIDE 20 MEQ ER TABLET 40 MEQ PO (08:49)
[2023-11-08] MEDS: GABAPENTIN 300 MG CAPSULE PO ×3 (08:49→18:30)
[2023-11-08] MEDS: ENOXAPARIN 40 MG/0.4 ML SYRINGE SUB-Q (08:50)
[2023-11-08] MEDS: EUCERIN CREAM 120 GM JAR 1 APPLIC TOPICAL (08:51)
[2023-11-08] MEDS: NYSTATIN 100,000 UNITS/ML SUSP 5 ML ORAL.SUSP PO ×4 (08:51→21:51)
[2023-11-08] MEDS: PANTOPRAZOLE SODIUM IV 40 MG VIAL IV PUSH (08:52)
--- NOTE | 2023-11-08 10:16 | WPDPN ---
Progress Note: A&P Assessment and Plan (1) Diverticulitis of large intestine with abscess: Code(s): K57.20 - Diverticulitis of large intestine with perforation and abscess without bleeding Status: Acute Assessment and Plan: Repeat CT scan abdomen pelvis presently being done. Prior CT-guided IR drain was dislodged and removed. If pelvic abscess is enlarging and then will try to have the drain placed again in Radiology tomorrow. If not able to replace the drain and continues to worsen then only option would be laparotomy with sigmoid resection and diverting colostomy. Subjective Date/time seen: 11/08/23 10:16 Interval history: Patient currently in CT scan and unable to be seen presently. [place] [address] [place] [address]. Patient is having quite a bit of loosen diarrhea stools. Hospitalist checking C diff. abdominal pain appears to be about the same as per hospitalist discussion. Objective Data Vital Signs Vital Signs: Vital Signs - 24 hr 11/07/23 12:00 11/07/23 13:35 11/07/23 16:00 Temperature 37.4 C Pulse Rate 91 89 84 Respiratory Rate 18 Blood Pressure 119/74 Pulse Oximetry 99 Oxygen Delivery 11/07/23 19:41 11/07/23 20:54 11/07/23 20:00 Temperature 36.5 C Pulse Rate 83 79 Respiratory Rate 18 Blood Pressure 125/75 Pulse Oximetry 95 Oxygen Delivery Room Air 11/08/23 00:00 11/08/23 04:00 11/08/23 05:50 Temperature 36.7 C Pulse Rate 87 89 78 Respiratory Rate 18 Blood Pressure 128/78 Pulse Oximetry 99 Oxygen Delivery 11/08/23 08:00 Temperature Pulse Rate 93 Respiratory Rate Blood Pressure Pulse Oximetry Oxygen Delivery Intake/Output Intake/Output: Intake & Output 11/05/23 11/06/23 11/07/23 11/08/23 23:59 23:59 23:59 23:59 Intake Total 2620 2500 1540 150 Output Total 1500 2200 Balance 0902 258 3619 150 Meds/Results Medications: Active Medications Generic Name Dose Route Start Last Admin Trade Name Freq PRN Reason Stop Dose Admin Acetaminophen 650 mg 11/04/23 20:45 11/08/23 06:20 Acetaminophen 325 Mg Tablet PO 650 mg Q4H PRN Administration Mild Pain (1-3) or Fever Enoxaparin Sodium 40 mg 11/08/23 09:00 11/08/23 08:50 Enoxaparin 40 Mg/0.4 Ml Syringe SUB-Q 40 mg DAILY MANAAS Administration Gabapentin 300 mg 11/05/23 17:20 11/08/23 08:49 Gabapentin 300 Mg Capsule PO 300 mg TID MANASA Administration Hydralazine HCl 10 mg 11/04/23 20:42 Hydralazine Hcl 20 Mg/Ml Vial IV PUSH Q8H PRN Blood Pressure - High Piperacillin/Tazobactam/Dextrose 3.375 gm in 50 mls @ 100 mls/hr 11/05/23 00:00 11/08/23 06:10 Zosyn 3.375 Gm/Ns 50 Ml IVPB 100 mls/hr Q6HR MANASA Administration Metronidazole 500 mg in 100 mls @ 100 mls/hr 11/05/23 09:00 11/08/23 08:51 Flagyl 500 Mg/Iso Soln 100 Ml IVPB 100 mls/hr Q8H MANASA Administration Morphine Sulfate 2 mg 11/04/23 17:09 11/08/23 02:38 Morphine Sulfate (*Crx) 2 Mg/Ml Inj IV PUSH 2 mg Q2H PRN Administration Pain Rated 7-10 Multi-Ingred Cream/Lotion/Oil/Oint 1 applic 11/05/23 09:00 11/08/23 08:51 Eucerin Cream 120 Gm Jar TOPICAL 1 applic DAILY MANASA Administration Neomycin/Polymyxin/Hydrocortisone 4 drop 11/04/23 20:45 11/08/23 06:15 Neomycin/Polymyxin/Hydrocort Ot Susp 10 Ml Btl (*Bkc) EACH EAR 4 drop Q8HR MANASA Administration Nystatin 5 ml 11/05/23 21:00 11/08/23 08:51 Nystatin 100,000 Units/Ml Susp 5 Ml Oral.Susp PO 5 ml QID MANASA Administration Ondansetron HCl 4 mg 11/04/23 17:09 Ondansetron Inj 4 Mg/2 Ml Vial IV PUSH Q4H PRN Nausea Pantoprazole Sodium 40 mg 11/05/23 09:00 11/08/23 08:52 Pantoprazole Sodium Iv 40 Mg Vial IV PUSH 40 mg QAM MANASA Administration Saccharomyces Boulardii 250 mg 11/07/23 17:00 11/08/23 08:48 Saccharomyces Boulardii 250 Mg Capsule PO 250 mg BID MANASA Administration Radiology Results: [facility] [employer]
[2023-11-08 17:04] LABS: Toxigenic C. Diff NEGATIVE (NEGATIVE)
[2023-11-09] VITALS (19 sets, daily range): BP systolic 111–140; BP diastolic 67–93; PULSE 72–88; RESP 17–26; TEMP 36.6–37; O2SAT 94–100
[2023-11-09] MEDS: metroNIDAZOLE 500 MG/ISO 100ML 500 MG/100 ML BAG 100 MG IVPB ×2 (00:11→10:50)
[2023-11-09 05:54] LABS: Basophils Percent Auto 0.2 % (0.2-1.2); Eosinophils Percent Auto 0.3 % (0-4.4); Hematocrit 30.3 % (37.0-47.0); Immature Granulocyte Absolute 0.16 K/mm3 (0.00-0.031); Lymphocytes Absolute Auto 1.32 K/mm3 (0.9-3.2); Lymphocytes Percent Auto 8.5 % (18.3-44.2); Mean Corpuscular Hemoglobin 30.7 pg (26-34); Mean Corpuscular Volume 92.9 fl (80-100); Mean Platelet Volume 9.9 fl (7.4-10.4); Monocytes Absolute Auto 1.1 K/mm3 (0.1-0.6); Monocytes Percent Auto 7.1 % (2.6-8.5); Neutrophils Absolute Auto 12.9 K/mm3 (1.3-6.7); Neutrophils Percent Auto 82.9 % (45.5-73.1); Platelet Count Result 382 k/mm3 (150-375); Red Blood Count 3.26 M/mm3 (4.2-5.4); Red Cell Distribution Width 15.2 % (11.5-14.5); White Blood Count 15.6 K/mm3 (4.5-10.0)
[2023-11-09 06:05] LABS: Alanine Aminotransferase 23 U/L (6-35); Albumin Level 2.9 g/dL (3.5-5.1); Alkaline Phosphatase 68 U/L (38-126); Anion Gap 4 mmol/L (4-12); Aspartate Amino Transferase 51 U/L (14-36); Bilirubin,Total 0.5 mg/dL (0.2-1.3); Blood Urea Nitrogen 5 mg/dL (7-17); Calcium 7.9 mg/dL (8.4-10.2); Carbon Dioxide 26 mmol/L (22-30); Chloride 107 mmol/L (98-107); Estimated CRCL calculation 65 ml/min; Estimated Glomerular Filt Rate > 60; Glucose 113 mg/dL (65-110); INR 1.4; Magnesium 1.8 mg/dL (1.6-2.3); Partial Thromboplastin Time 34.3 Seconds (22.3-36.8); Prothrombin Time 18.4 Seconds (11.1-14.7); Sodium 137 mmol/L (137-145)
[2023-11-09] MEDS: PIPERACILLN/TAZ 3.375GM/NS50ML 3.375 GM/50 ML BAG IVPB ×4 (06:08→23:00)
[2023-11-09] MEDS: NEOMYCIN/POLYMYXIN/HYDROCORT OT SUSP 10 ML BTL (*BKC) 4 DROP EACH EAR ×2 (06:09→15:54)
--- NOTE | 2023-11-09 07:17 | P.PNIM_ITS ---
Progress Note: A&P Assessment and Plan (1) Sepsis: Code(s): A41.9 - Sepsis, unspecified organism Status: Acute Assessment and Plan: - meets SIRS criteria: HR, WBC. No hypotension or hypoxia. - lactic acid: 1.0 - 30 mL/kg = 2300. given 1L bolus of NS, adding 1L bolus of LR -> 125 mL/hr of NS. - suspected source: diverticulitis, perisigmoid abscess - started on Zosyn and Flagyl on 11/03 - blood cultures drawn on 11/03 - UA: specific gravity 1.039, otherwise unremarkable 11/04: * WBC downtrending. 25-->19.1 * afebrile overnight * Blood pressures stable * Continue Zosyn and Flagyl per surgery * blood cultures pending 11/05: * Leukocytosis still resolving. White count 12.9 today * Afebrile overnight * Preliminary read on blood cultures with no growth 11/06: * WBC increased to 12.9-->15.9 * afebrile, remainder of VSS * Culture from abscess is growing streptococcus anginosus. On Zosyn. * May need repeat CT abdomen and pelvis if WBC continues to rise 11/07: * WBC 12.9-->--15.9-->18.5 * Afebrile * Continue Zosyn and Flagyl * Ordered CT abdomen/pelvis shows 6.7 x 6.2 x 3.3 cm perisigmoid abscess * NPO at [place] for drain placement 11/08 * Also ordered stool sample to r/o c-diff as she has been having frequent bowel movements 11/08: * WBC 12.9-->15.9-->18.5-->15.6 * afebrile * NPO for drain placement * C-diff negative (2) Sigmoid diverticulitis: Code(s): K57.32 - Diverticulitis of large intestine without perforation or abscess without bleeding Status: Deleted Assessment and Plan: - CT abd/pelvis: Sigmoid diverticulitis with perisigmoid abscess. 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 - started on Zosyn and Flagyl on 11/03 - WBC 25 - IV fluids and monitor I&Os - trend labs 11/04: * surgery consult, rec's appreciated * NPO for possible intervention * Zosyn, Flagyl, and IVF * morphine prn for pain, Zofran prn for nausea 11/05: * IR drain was placed yesterday. Drain was displaced when patient got up to go to the restroom. * CT abdomen pelvis shows drain no longer in abscess * Patient made NPO for possible drain replacement today * Decreased IV fluids to 100 ml/hr 11/06: * IVF D/c'd * regular diet * having loose stools--add probiotic 11/07: * c-diff ordered 11/08: * C-diff negative * Florastor BID (3) Abscess of sigmoid colon due to diverticulitis: Code(s): K57.20 - Diverticulitis of large intestine with perforation and abscess without bleeding Status: Deleted Assessment and Plan: - CT abd/pelvis: sigmoid diverticulitis with perisigmoid abscess. 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 - General Surgery consulted, awaiting recs - NPO See plan 2 (4) Hypokalemia: Code(s): E87.6 - Hypokalemia Status: Acute Assessment and Plan: - K 2.6 - starting repletion with KCl 40 IVPB and one time dose of 40 mg PO - repeat bmp at 2200 - continue to trend/correct 11/04: * K+ 3.3, phos 2.3 * IVP K+Phos replacement ordered * On telemetry 11/05: * K+ 3.0, Mag pending * Ord
--- NOTE | 2023-11-09 07:17 | PM.IMPN ---
Progress Note: A&P Assessment and Plan (1) Sepsis: Code(s): A41.9 - Sepsis, unspecified organism Status: Acute Assessment and Plan: - meets SIRS criteria: HR, WBC. No hypotension or hypoxia. - lactic acid: 1.0 - 30 mL/kg = 2300. given 1L bolus of NS, adding 1L bolus of LR -> 125 mL/hr of NS. - suspected source: diverticulitis, perisigmoid abscess - started on Zosyn and Flagyl on 11/03 - blood cultures drawn on 11/03 - UA: specific gravity 1.039, otherwise unremarkable 11/04: WBC downtrending. 25-->19.1 afebrile overnight Blood pressures stable Continue Zosyn and Flagyl per surgery blood cultures pending 11/05: Leukocytosis still resolving. White count 12.9 today Afebrile overnight Preliminary read on blood cultures with no growth 11/06: WBC increased to 12.9-->15.9 afebrile, remainder of VSS Culture from abscess is growing streptococcus anginosus. On Zosyn. May need repeat CT abdomen and pelvis if WBC continues to rise 11/07: WBC 12.9-->--15.9-->18.5 Afebrile Continue Zosyn and Flagyl Ordered CT abdomen/pelvis shows 6.7 x 6.2 x 3.3 cm perisigmoid abscess NPO at [place] for drain placement 11/08 Also ordered stool sample to r/o c-diff as she has been having frequent bowel movements 11/08: WBC 12.9-->15.9-->18.5-->15.6 afebrile NPO for drain placement C-diff negative (2) Sigmoid diverticulitis: Code(s): K57.32 - Diverticulitis of large intestine without perforation or abscess without bleeding Status: Deleted Assessment and Plan: - CT abd/pelvis: Sigmoid diverticulitis with perisigmoid abscess. 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 - started on Zosyn and Flagyl on 11/03 - WBC 25 - IV fluids and monitor I&Os - trend labs 11/04: surgery consult, rec's appreciated NPO for possible intervention Zosyn, Flagyl, and IVF morphine prn for pain, Zofran prn for nausea 11/05: IR drain was placed yesterday. Drain was displaced when patient got up to go to the restroom. CT abdomen pelvis shows drain no longer in abscess Patient made NPO for possible drain replacement today Decreased IV fluids to 100 ml/hr 11/06: IVF D/c'd regular diet having loose stools--add probiotic 11/07: c-diff ordered 11/08: C-diff negative Florastor BID (3) Abscess of sigmoid colon due to diverticulitis: Code(s): K57.20 - Diverticulitis of large intestine with perforation and abscess without bleeding Status: Deleted Assessment and Plan: - CT abd/pelvis: sigmoid diverticulitis with perisigmoid abscess. 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 - General Surgery consulted, awaiting recs - NPO See plan 2 (4) Hypokalemia: Code(s): E87.6 - Hypokalemia Status: Acute Assessment and Plan: - K 2.6 - starting repletion with KCl 40 IVPB and one time dose of 40 mg PO - repeat bmp at 2200 - continue to trend/correct 11/04: K+ 3.3, phos 2.3 IVP K+Phos replacement ordered On telemetry 11/05: K+ 3.0, Mag pending Ordered 40 mEq of oral K and 40 mEq IV x1 Telemetry 11/06: K+ 3.0, replace with K 40 meq 11/07: K 3.5 meq 11/08: K+ 3.0 meq K+ 40 PO meq x2 today (5) Hypertension: Code(s): I10 - Essential (primary) hypertension Status: Acute Assessment and Plan: - chronic, currently 120/96 - hold home medication: amlodipine PO - add hydralazine q.8 hours p.r.n. for HTN given NPO status - monitor 11/04: Blood pressures reviewed and are stable. Continue to hold home agents in setting of sepsis. 11/05: Blood pressures reviewed and are stable 11/06: 128/78, HR 78 11/07: stable (6) History of shingles: Code(s): Z86.19 - Personal history of other infectious and parasitic diseases Status: Acute Assessment and Plan: -recently wa
[2023-11-09] MEDS: MORPHINE SULFATE (*CRX) 2 MG/ML INJ IV PUSH ×3 (08:59→21:23)
[2023-11-09] MEDS: POTASSIUM CHLORIDE 20 MEQ ER TABLET 40 MEQ PO ×2 (09:00→15:54)
[2023-11-09] MEDS: GABAPENTIN 300 MG CAPSULE PO ×2 (09:01→15:54)
[2023-11-09] MEDS: SACCHAROMYCES BOULARDII 250 MG CAPSULE PO (09:01)
[2023-11-09] MEDS: EUCERIN CREAM 120 GM JAR 1 APPLIC TOPICAL (09:01)
[2023-11-09] MEDS: NYSTATIN 100,000 UNITS/ML SUSP 5 ML ORAL.SUSP PO ×2 (09:02→21:15)
[2023-11-09] MEDS: PANTOPRAZOLE SODIUM IV 40 MG VIAL IV PUSH (09:02)
--- NOTE | 2023-11-09 09:34 | WPDPN ---
Progress Note: A&P Assessment and Plan (1) Diverticulitis of large intestine with abscess: Code(s): K57.20 - Diverticulitis of large intestine with perforation and abscess without bleeding Status: Acute Assessment and Plan: Patient will have another IR directed CT-guided drain placed in the pelvic abscess today. Hopefully this will drain the abscess and the perforation does not close that she may develop an a colocutaneous fistula which is controlled and then subsequent surgery when she has improved. However if the drain does not improve her clinical status then she will need an exploratory laparotomy with sigmoid colon resection and diverting colostomy. Continue IV antibiotics. Supportive management for now. Subjective Date/time seen: 11/09/23 09:34 Interval history: Patient still having left lower quadrant suprapubic abdominal pain. CT scan yesterday showed increase in the size of pelvic abscesses drain was removed and dislodged by accident. White blood cell count [place] [address] she down to [address] scan yesterday shows a perforation: With a defect measuring about 6mm. No fever chills. No tachycardia Exam GI: Other: Abdomen soft and tender in left lower quadrant. No generalized peritoneal signs some mild guarding in the left lower quadrant. Objective Data Vital Signs Vital Signs: Vital Signs - 24 hr 11/08/23 12:00 11/08/23 13:44 11/08/23 16:00 Temperature 37.0 C Pulse Rate 94 79 82 Respiratory Rate 20 Blood Pressure 122/69 Pulse Oximetry 100 Oxygen Delivery 11/08/23 20:37 11/08/23 20:00 11/08/23 20:00 Temperature 36.7 C Pulse Rate 74 81 Respiratory Rate 18 Blood Pressure 119/70 Pulse Oximetry 98 Oxygen Delivery Room Air 11/09/23 00:00 11/09/23 04:00 11/09/23 05:08 Temperature 36.6 C Pulse Rate 72 86 78 Respiratory Rate 20 Blood Pressure 111/82 Pulse Oximetry 100 Oxygen Delivery 11/09/23 08:00 Temperature Pulse Rate 80 Respiratory Rate Blood Pressure Pulse Oximetry Oxygen Delivery Intake/Output Intake/Output: Intake & Output 11/06/23 11/07/23 11/08/23 11/09/23 23:59 23:59 23:59 23:59 Intake Total 2500 1540 840 350 Output Total 2200 Balance 300 1540 840 350 Meds/Results Medications: Active Medications Generic Name Dose Route Start Last Admin Trade Name Freq PRN Reason Stop Dose Admin Acetaminophen 650 mg 11/04/23 20:45 11/08/23 22:09 Acetaminophen 325 Mg Tablet PO 650 mg Q4H PRN Administration Mild Pain (1-3) or Fever Enoxaparin Sodium 40 mg 11/08/23 09:00 11/08/23 08:50 Enoxaparin 40 Mg/0.4 Ml Syringe SUB-Q 40 mg DAILY MANASA Administration Gabapentin 300 mg 11/05/23 17:20 11/09/23 09:01 Gabapentin 300 Mg Capsule PO 300 mg TID MANASA Administration Hydralazine HCl 10 mg 11/04/23 20:42 Hydralazine Hcl 20 Mg/Ml Vial IV PUSH Q8H PRN Blood Pressure - High Piperacillin/Tazobactam/Dextrose 3.375 gm in 50 mls @ 100 mls/hr 11/05/23 00:00 11/09/23 07:00 Zosyn 3.375 Gm/Ns 50 Ml IVPB Infused Q6HR [facility] Infusion Metronidazole 500 mg in 100 mls @ 100 mls/hr 11/05/23 09:00 11/09/23 01:11 Flagyl 500 Mg/Iso Soln 100 Ml IVPB Infused Q8H [facility] Infusion Morphine Sulfate 2 mg 11/04/23 17:09 11/09/23 08:59 Morphine Sulfate (*Crx) 2 Mg/Ml Inj IV PUSH 2 mg Q2H PRN Administration Pain Rated 7-10 Multi-Ingred Cream/Lotion/Oil/Oint 1 applic 11/05/23 09:00 11/09/23 09:01 Eucerin Cream 120 Gm Jar TOPICAL 1 applic DAILY MANASA Administration Neomycin/Polymyxin/Hydrocortisone 4 drop 11/04/23 20:45 11/09/23 06:09 Neomycin/Polymyxin/Hydrocort Ot Susp 10 Ml Btl (*Bkc) EACH EAR 4 drop Q8HR MANASA Administration Nystatin 5 ml 11/05/23 21:00 11/09/23 09:02 Nystatin 100,000 Units/Ml Susp 5 Ml Oral.Susp PO 5 ml QID MANASA Administration Ondansetron HCl 4 mg 11/04/23 17:09 Ondansetron Inj 4 Mg/2 Ml Vial IV PUSH
--- NOTE | 2023-11-09 09:55 | PC.NURSE ---
call to IV therapy for new iv access to be placed
--- NOTE | 2023-11-09 12:30 | PC.NURSE ---
pt to radiology for scheduled procedure
--- NOTE | 2023-11-09 13:04 | WPDMODSED ---
Moderate Sedation Note-Pt Data Patient Data Diagnosis: Perisigmoid abscess. Present Complaint: Perisigmoid abscess. Procedure to be performed/Plan: CT-guided perisigmoid abscess drainage. Allergies Allergy/AdvReac Type Severity Reaction Status Date / Time No Known Allergies Allergy Mild Unverified 11/18/22 10:14 Home Medications Medication Instructions Recorded Confirmed Type amlodipine 10 mg tablet 10 mg PO DAILY 09/24/22 11/04/23 History ezetimibe 10 mg tablet 10 mg PO DAILY 09/24/22 11/04/23 History omeprazole 40 mg capsule,delayed 40 mg PO DAILY 09/24/22 11/04/23 History release [id number] 3.5 4 drp otic (ear) Q8H #10 mL 11/18/22 11/04/23 Rx mg-10,000 unit/mL-1 % ear drops,susp Current Medications: Active Medications Acetaminophen (Acetaminophen 325 Mg Tablet) 650 mg PO Q4H PRN PRN Reason: Mild Pain (1-3) or Fever Last Admin: 11/08/23 22:09 Dose: 650 mg Enoxaparin Sodium (Enoxaparin 40 Mg/0.4 Ml Syringe) 40 mg SUB-Q DAILY [facility] Last Admin: 11/08/23 08:50 Dose: 40 mg Gabapentin (Gabapentin 300 Mg Capsule) 300 mg PO TID [facility] Last Admin: 11/09/23 09:01 Dose: 300 mg Hydralazine HCl (Hydralazine Hcl 20 Mg/Ml Vial) 10 mg IV PUSH Q8H PRN PRN Reason: Blood Pressure - High Piperacillin/Tazobactam/Dextrose (Zosyn 3.375 Gm/Ns 50 Ml) 3.375 gm in 50 mls @ 100 mls/hr IVPB Q6HR [facility] Last Admin: 11/09/23 12:19 Dose: 100 mls/hr Metronidazole (Flagyl 500 Mg/Iso Soln 100 Ml) 500 mg in 100 mls @ 100 mls/hr IVPB Q8H [facility] Last Infusion: 11/09/23 11:50 Dose: Infused Morphine Sulfate (Morphine Sulfate (*Crx) 2 Mg/Ml Inj) 2 mg IV PUSH Q2H PRN PRN Reason: Pain Rated 7-10 Last Admin: 11/09/23 08:59 Dose: 2 mg Multi-Ingred Cream/Lotion/Oil/Oint (Eucerin Cream 120 Gm Jar) 1 applic TOPICAL DAILY [facility] Last Admin: 11/09/23 09:01 Dose: 1 applic Neomycin/Polymyxin/Hydrocortisone (Neomycin/Polymyxin/Hydrocort Ot Susp 10 Ml Btl (*Bkc)) 4 drop EACH EAR Q8HR [facility] Last Admin: 11/09/23 06:09 Dose: 4 drop Nystatin (Nystatin 100,000 Units/Ml Susp 5 Ml Oral.Susp) 5 ml PO QID [facility] Last Admin: 11/09/23 09:02 Dose: 5 ml Ondansetron HCl (Ondansetron Inj 4 Mg/2 Ml Vial) 4 mg IV PUSH Q4H PRN PRN Reason: Nausea Pantoprazole Sodium (Pantoprazole Sodium Iv 40 Mg Vial) 40 mg IV PUSH QAM [facility] Last Admin: 11/09/23 09:02 Dose: 40 mg Saccharomyces Boulardii (Saccharomyces Boulardii 250 Mg Capsule) 250 mg PO BID [facility] Last Admin: 11/09/23 09:01 Dose: 250 mg Sedation/Anesthesia: No previous sedation/anesthesia problems (including family history). 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 Hypertension Thyroid mass benign follicular nodule, 10/09/22 Surgical History Surgical History History of hysterectomy Social History Social History Smoking packs per day: 1 Smoking cigarettes per day: 20.0 Smoking status: Current every day smoker Tobacco type: cigarettes Alcohol intake: never Substance use: never Do You Feel Safe in your Home?: Yes Lack of Transportation: No Lack of Food: Never True Current Housing: I Have Housing Concerned About Future Housing: No Difficulty Paying Gas/Electric Bills: No Difficulty Paying for Meds: No Currently Unemployed: No Education: Trade/Vocational Certificate Difficulty w/ Childcare or Family Care: No Living arrangements: alone Gender identity (if verbalized by the patient): Female Spiritual care concerns: No Mod Sed Physical Exam Physical Exam Pre Procedural Exam: Normal: Lungs, Heart Rate, Heart Rhythm and Abdomen and Variation: Appearance (obese) Hours since solid foods: 12 Hours since liquid intake: 12 Mallampati Classification: class II Internal Medicine - PN: O
--- NOTE | 2023-11-09 14:14 | PC.NURSE ---
pt returned from procedure assisted to bed, resting comfortably
[2023-11-09] MEDS: ENOXAPARIN 40 MG/0.4 ML SYRINGE SUB-Q (15:54)
--- NOTE | 2023-11-09 16:06 | PC.NURSE ---
1400 PO meds deferred after procedure due to pt having belching and slight stomach upset
--- NOTE | 2023-11-09 17:55 | PC.NURSE ---
1700 meds refused due to proximity to previous dose due to procedures
[2023-11-09] MEDS: metroNIDAZOLE 500 MG TABLET PO (21:15)
[2023-11-10] VITALS (10 sets, daily range): BP systolic 125–136; BP diastolic 68–86; PULSE 71–85; RESP 16–17; TEMP 36.8–37.3; O2SAT 98–100
[2023-11-10] MEDS: ACETAMINOPHEN 325 MG TABLET 650 MG PO ×2 (04:16→09:18)
[2023-11-10] MEDS: metroNIDAZOLE 500 MG TABLET PO ×3 (05:45→21:23)
[2023-11-10 05:47] LABS: Alanine Aminotransferase 32 U/L (6-35); Alkaline Phosphatase 68 U/L (38-126); Anion Gap 4 mmol/L (4-12); Aspartate Amino Transferase 58 U/L (14-36); Bilirubin,Total 0.6 mg/dL (0.2-1.3); Blood Urea Nitrogen 4 mg/dL (7-17); Calcium 8.1 mg/dL (8.4-10.2); Carbon Dioxide 28 mmol/L (22-30); Chloride 105 mmol/L (98-107); Estimated CRCL calculation 65 ml/min; Estimated Glomerular Filt Rate > 60; Glucose 106 mg/dL (65-110); Magnesium 1.8 mg/dL (1.6-2.3); Potassium 3.2 mmol/L (3.4-5.0); Sodium 137 mmol/L (137-145)
[2023-11-10 05:52] LABS: Basophils Percent Auto 0.2 % (0.2-1.2); Eosinophils Percent Auto 0.2 % (0-4.4); Hematocrit 30.1 % (37.0-47.0); Immature Granulocyte Absolute 0.17 K/mm3 (0.00-0.031); Immature Granulocyte Percent A 1.3 % (0-0.5); Lymphocytes Percent Auto 14.2 % (18.3-44.2); Mean Corpuscular HGB Conc 33.2 g/dl (32-36); Mean Corpuscular Hemoglobin 30.8 pg (26-34); Mean Corpuscular Volume 92.6 fl (80-100); Mean Platelet Volume 9.8 fl (7.4-10.4); Monocytes Absolute Auto 0.9 K/mm3 (0.1-0.6); Monocytes Percent Auto 6.9 % (2.6-8.5); Neutrophils Absolute Auto 9.8 K/mm3 (1.3-6.7); Neutrophils Percent Auto 77.2 % (45.5-73.1); Platelet Count Result 396 k/mm3 (150-375); Red Blood Count 3.25 M/mm3 (4.2-5.4); Red Cell Distribution Width 15.1 % (11.5-14.5); White Blood Count 12.7 K/mm3 (4.5-10.0)
[2023-11-10] MEDS: PIPERACILLN/TAZ 3.375GM/NS50ML 3.375 GM/50 ML BAG IVPB ×3 (06:18→17:20)
--- NOTE | 2023-11-10 07:08 | P.PNIM_ITS ---
Progress Note: A&P Assessment and Plan (1) Sepsis: Code(s): A41.9 - Sepsis, unspecified organism Status: Acute Assessment and Plan: - meets SIRS criteria: HR, WBC. No hypotension or hypoxia. - lactic acid: 1.0 - 30 mL/kg = 2300. given 1L bolus of NS, adding 1L bolus of LR -> 125 mL/hr of NS. - suspected source: diverticulitis, perisigmoid abscess - started on Zosyn and Flagyl on 11/03 - blood cultures drawn on 11/03 - UA: specific gravity 1.039, otherwise unremarkable 11/04: * WBC downtrending. 25-->19.1 * afebrile overnight * Blood pressures stable * Continue Zosyn and Flagyl per surgery * blood cultures pending 11/05: * Leukocytosis still resolving. White count 12.9 today * Afebrile overnight * Preliminary read on blood cultures with no growth 11/06: * WBC increased to 12.9-->15.9 * afebrile, remainder of VSS * Culture from abscess is growing streptococcus anginosus. On Zosyn. * May need repeat CT abdomen and pelvis if WBC continues to rise 11/07: * WBC 12.9-->--15.9-->18.5 * Afebrile * Continue Zosyn and Flagyl * Ordered CT abdomen/pelvis shows 6.7 x 6.2 x 3.3 cm perisigmoid abscess * NPO at [place] for drain placement 11/08 * Also ordered stool sample to r/o c-diff as she has been having frequent bowel movements 11/08: * WBC 12.9-->15.9-->18.5-->15.6 * afebrile * NPO for drain placement * C-diff negative 11/09: * WBC 12.9-->15.9-->18.5-->15.6-->12.7 * afebrile * IR drain with purulent drainage * Clinically continues to improve. Unsure if patient will d/c with drain in place or if she will remain inpatient until drain can be removed. * Plan to continue IV antibiotics. Culture growing bacteroides fragilis and streptococcus anginosus. Currently on zosyn and PO flagyl. Anticipate de- escalating to Rocehpin or even PO Augmentin. Antibiotics per surgery. L (2) Sigmoid diverticulitis: Code(s): K57.32 - Diverticulitis of large intestine without perforation or abscess without bleeding Status: Deleted Assessment and Plan: - CT abd/pelvis: Sigmoid diverticulitis with perisigmoid abscess. 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 - started on Zosyn and Flagyl on 11/03 - WBC 25 - IV fluids and monitor I&Os - trend labs 11/04: * surgery consult, rec's appreciated * NPO for possible intervention * Zosyn, Flagyl, and IVF * morphine prn for pain, Zofran prn for nausea 11/05: * IR drain was placed yesterday. Drain was displaced when patient got up to go to the restroom. * CT abdomen pelvis shows drain no longer in abscess * Patient made NPO for possible drain replacement today * Decreased IV fluids to 100 ml/hr 11/06: * IVF D/c'd * regular diet * having loose stools--add probiotic 11/07: * c-diff ordered 11/08: * C-diff negative * Florastor BID 11/09: * stools are more formed and less frequent (3) Abscess of sigmoid colon due to diverticulitis: Code(s): K57.20 - Diverticulitis of large intestine with perforation and abscess without bleeding Status: Deleted Assessment and Plan: - CT abd/pelvis: sigmoid diverticulitis with perisigmoid abscess. 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 - General Surgery consulted, awaiting recs - NPO See plan 2
--- NOTE | 2023-11-10 07:08 | PM.IMPN ---
Progress Note: A&P Assessment and Plan (1) Sepsis: Code(s): A41.9 - Sepsis, unspecified organism Status: Acute Assessment and Plan: - meets SIRS criteria: HR, WBC. No hypotension or hypoxia. - lactic acid: 1.0 - 30 mL/kg = 2300. given 1L bolus of NS, adding 1L bolus of LR -> 125 mL/hr of NS. - suspected source: diverticulitis, perisigmoid abscess - started on Zosyn and Flagyl on 11/03 - blood cultures drawn on 11/03 - UA: specific gravity 1.039, otherwise unremarkable 11/04: WBC downtrending. 25-->19.1 afebrile overnight Blood pressures stable Continue Zosyn and Flagyl per surgery blood cultures pending 11/05: Leukocytosis still resolving. White count 12.9 today Afebrile overnight Preliminary read on blood cultures with no growth 11/06: WBC increased to 12.9-->15.9 afebrile, remainder of VSS Culture from abscess is growing streptococcus anginosus. On Zosyn. May need repeat CT abdomen and pelvis if WBC continues to rise 11/07: WBC 12.9-->--15.9-->18.5 Afebrile Continue Zosyn and Flagyl Ordered CT abdomen/pelvis shows 6.7 x 6.2 x 3.3 cm perisigmoid abscess NPO at [place] for drain placement 11/08 Also ordered stool sample to r/o c-diff as she has been having frequent bowel movements 11/08: WBC 12.9-->15.9-->18.5-->15.6 afebrile NPO for drain placement C-diff negative 11/09: WBC 12.9-->15.9-->18.5-->15.6-->12.7 afebrile IR drain with purulent drainage Clinically continues to improve. Unsure if patient will d/c with drain in place or if she will remain inpatient until drain can be removed. Plan to continue IV antibiotics. Culture growing bacteroides fragilis and streptococcus anginosus. Currently on zosyn and PO flagyl. Anticipate de-escalating to Rocehpin or even PO Augmentin. Antibiotics per surgery. (2) Sigmoid diverticulitis: Code(s): K57.32 - Diverticulitis of large intestine without perforation or abscess without bleeding Status: Deleted Assessment and Plan: - CT abd/pelvis: Sigmoid diverticulitis with perisigmoid abscess. 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 - started on Zosyn and Flagyl on 11/03 - WBC 25 - IV fluids and monitor I&Os - trend labs 11/04: surgery consult, rec's appreciated NPO for possible intervention Zosyn, Flagyl, and IVF morphine prn for pain, Zofran prn for nausea 11/05: IR drain was placed yesterday. Drain was displaced when patient got up to go to the restroom. CT abdomen pelvis shows drain no longer in abscess Patient made NPO for possible drain replacement today Decreased IV fluids to 100 ml/hr 11/06: IVF D/c'd regular diet having loose stools--add probiotic 11/07: c-diff ordered 11/08: C-diff negative Florastor BID 11/09: stools are more formed and less frequent (3) Abscess of sigmoid colon due to diverticulitis: Code(s): K57.20 - Diverticulitis of large intestine with perforation and abscess without bleeding Status: Deleted Assessment and Plan: - CT abd/pelvis: sigmoid diverticulitis with perisigmoid abscess. 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 - General Surgery consulted, awaiting recs - NPO See plan 2 (4) Hypokalemia: Code(s): E87.6 - Hypokalemia Status: Acute Assessment and Plan: - K 2.6 - starting repletion with KCl 40 IVPB and one time dose of 40 mg PO - repeat bmp at 2200 - continue to trend/correct 11/04: K+ 3.3, phos 2.3 IVP K+Phos replacement ordered On telemetry 11/05: K+ 3.0, Mag pending Ordered 40 mEq of oral K and 40 mEq IV x1 Telemetry 11/06: K+ 3.0, replace with K 40 meq 11/07: K 3.5 meq 11/08: K+ 3.0 meq K+ 40 PO meq x2 today (5) Hypertension: Code(s): I10 - Essential (primary) hypertension Status: Acute Assessment and Plan: - chron
[2023-11-10] MEDS: POTASSIUM CHLORIDE 20 MEQ ER TABLET 40 MEQ PO ×2 (09:06→12:20)
[2023-11-10] MEDS: SACCHAROMYCES BOULARDII 250 MG CAPSULE PO ×2 (09:06→17:20)
[2023-11-10] MEDS: NYSTATIN 100,000 UNITS/ML SUSP 5 ML ORAL.SUSP PO ×4 (09:06→21:23)
[2023-11-10] MEDS: GABAPENTIN 300 MG CAPSULE PO ×3 (09:06→17:20)
[2023-11-10] MEDS: PANTOPRAZOLE SODIUM IV 40 MG VIAL IV PUSH (09:06)
[2023-11-10] MEDS: ENOXAPARIN 40 MG/0.4 ML SYRINGE SUB-Q (09:06)
[2023-11-10] MEDS: EUCERIN CREAM 120 GM JAR 1 APPLIC TOPICAL (09:07)
--- NOTE | 2023-11-10 11:22 | PM.PNGS ---
Progress Note: A&P Assessment and Plan (1) Diverticulitis of large intestine with abscess: Code(s): K57.20 - Diverticulitis of large intestine with perforation and abscess without bleeding Status: Acute Assessment and Plan: S/p transgluteal percutaneous drainage of pelvic abscess on 11/08. WBC trending down to 12,000. She is tolerating a regular diet. Cultures from initial drainage growing bacteroides fragilis and streptococcus anginosus. Continue IV antibiotics. Supportive management for now. Plan I have discussed the patient's case and plan of care with Dr. Johnson. Subjective Subjective Date/Time Seen: 11/10/23 10:22 Patient reports: no new complaints, tolerating a regular diet, flatus, bowel movement and afebrile Interval history: Chart reviewed since last seen. Patient had percutaneous drain placed on 11/05/2023 and accidentally pulled the drain out the same day. White blood cell count went up and she ultimately had another percutaneous drain placed yesterday. White blood cell count down to 12,000 today from 15,000 yesterday. She is afebrile. She is tolerating a regular diet well without any complaints. No nausea or vomiting. She is having bowel movements daily and reports they are becoming more formed. Denies any blood in her stool. Exam Const: General: comfortable and no acute distress Orientation/consciousness: patient oriented x3 GI: Inspection: non-distended GI Palp: Yes Soft to palpation, No Tenderness to palpation present (GI) (no abdominal tenderness even in the LLQ), No Guarding due to palpation present (GI) and No Rebound tenderness present Auscultation: normal bowel sounds Other: Left transgluteal percutaneous drain with donaldson purulent drainage, dressing dry and intact Objective Data Vital Signs Vital Signs: Vital Signs - 24 hr 11/09/23 12:00 11/09/23 13:05 11/09/23 13:20 Temperature Pulse Rate 82 87 85 Respiratory Rate 25 H 25 H Blood Pressure 140/93 H 135/92 H Pulse Oximetry 96 97 Oxygen Delivery Nasal Cannula Nasal Cannula Oxygen Flow Rate 2 2 11/09/23 14:00 11/09/23 13:25 11/09/23 13:30 Temperature Pulse Rate 81 88 88 Respiratory Rate 20 25 H 25 H Blood Pressure 127/87 134/87 121/84 Pulse Oximetry 99 95 97 Oxygen Delivery Room Air Nasal Cannula Nasal Cannula Oxygen Flow Rate 2 2 11/09/23 13:35 11/09/23 13:40 11/09/23 13:45 Temperature Pulse Rate 85 84 85 Respiratory Rate 26 H 17 20 Blood Pressure 130/82 123/88 123/82 Pulse Oximetry 100 100 100 Oxygen Delivery Nasal Cannula Nasal Cannula Nasal Cannula Oxygen Flow Rate 2 2 2 11/09/23 13:50 11/09/23 13:55 11/09/23 14:39 Temperature 98.6 F Pulse Rate 86 85 79 Respiratory Rate 21 H 20 20 Blood Pressure 129/86 125/92 H 122/70 Pulse Oximetry 99 98 99 Oxygen Delivery Room Air Room Air Oxygen Flow Rate 11/09/23 16:00 11/09/23 19:43 11/09/23 20:00 Temperature 98.1 F Pulse Rate 86 72 72 Respiratory Rate 17 Blood Pressure 115/67 Pulse Oximetry 94 Oxygen Delivery Oxygen Flow Rate 11/09/23 20:00 11/10/23 00:00 11/10/23 04:00 Temperature Pulse Rate 78 76 Respiratory Rate Blood Pressure Pulse Oximetry Oxygen Delivery Room Air Oxygen Flow Rate 11/10/23 04:48 Temperature 98.3 F Pulse Rate 73 Respiratory Rate 17 Blood Pressure 126/79 Pulse Oximetry 100 Oxygen Delivery Oxygen Flow Rate Intake/Output Intake/Output: Intake & Output 11/07/23 11/08/23 11/09/23 11/10/23 23:59 23:59 23:59 23:59 Intake Total 7609 569 3826 240 Balance 7523 394 3402 240 Meds/Results Medications: Active Medications Generic Name Dose Route Start Last Admin Trade Name Essence PRN Reason Stop Dose Admin Acetaminophen 650 mg 11/04/23 20:45 11/10/23 09:18 Acetaminophen 325 Mg Tablet PO 650 mg Q4H PRN Administration Mild Pain (1-3) or Fever Enoxaparin Sodium 40 mg 11/08/23 09:00 11/10/23 09:06 Enoxaparin 40 Mg/0.4 Ml [facility]
[2023-11-10] MEDS: NEOMYCIN/POLYMYXIN/HYDROCORT OT SUSP 10 ML BTL (*BKC) 4 DROP EACH EAR (14:21)
[2023-11-11] VITALS: PULSE 73
[2023-11-11] MEDS: PIPERACILLN/TAZ 3.375GM/NS50ML 3.375 GM/50 ML BAG IVPB ×4 (00:43→17:19)
[2023-11-11 04:00] VITALS: PULSE 70
[2023-11-11 04:56] VITALS: BP 140/88; PULSE 80; RESP 18; TEMP 37.1; O2SAT 100
[2023-11-11 05:22] LABS: Basophils Percent Auto 0.2 % (0.2-1.2); Eosinophils Percent Auto 0.2 % (0-4.4); Hematocrit 30.3 % (37.0-47.0); Hemoglobin 9.9 g/dL (12.0-15.0); Immature Granulocyte Absolute 0.12 K/mm3 (0.00-0.031); Immature Granulocyte Percent A 1.1 % (0-0.5); Lymphocytes Absolute Auto 1.98 K/mm3 (0.9-3.2); Lymphocytes Percent Auto 17.8 % (18.3-44.2); Mean Corpuscular HGB Conc 32.7 g/dl (32-36); Mean Corpuscular Hemoglobin 30.6 pg (26-34); Mean Corpuscular Volume 93.5 fl (80-100); Mean Platelet Volume 9.8 fl (7.4-10.4); Monocytes Absolute Auto 0.9 K/mm3 (0.1-0.6); Neutrophils Absolute Auto 8.1 K/mm3 (1.3-6.7); Neutrophils Percent Auto 72.7 % (45.5-73.1); Platelet Count Result 396 k/mm3 (150-375); Red Blood Count 3.24 M/mm3 (4.2-5.4); Red Cell Distribution Width 15.3 % (11.5-14.5); White Blood Count 11.1 K/mm3 (4.5-10.0)
[2023-11-11 05:31] LABS: Alanine Aminotransferase 31 U/L (6-35); Albumin Level 3.1 g/dL (3.5-5.1); Alkaline Phosphatase 65 U/L (38-126); Anion Gap 6 mmol/L (4-12); Aspartate Amino Transferase 63 U/L (14-36); Bilirubin,Total 0.5 mg/dL (0.2-1.3); Blood Urea Nitrogen 4 mg/dL (7-17); Calcium 8.3 mg/dL (8.4-10.2); Carbon Dioxide 26 mmol/L (22-30); Chloride 106 mmol/L (98-107); Estimated CRCL calculation 65 ml/min; Estimated Glomerular Filt Rate > 60; Glucose 120 mg/dL (65-110); Magnesium 1.9 mg/dL (1.6-2.3); Potassium 3.5 mmol/L (3.4-5.0); Sodium 138 mmol/L (137-145)
[2023-11-11] MEDS: metroNIDAZOLE 500 MG TABLET PO ×3 (05:39→20:49)
[2023-11-11] MEDS: PANTOPRAZOLE SODIUM IV 40 MG VIAL IV PUSH (08:46)
[2023-11-11] MEDS: SACCHAROMYCES BOULARDII 250 MG CAPSULE PO ×2 (08:46→17:19)
[2023-11-11] MEDS: ENOXAPARIN 40 MG/0.4 ML SYRINGE SUB-Q (08:46)
[2023-11-11] MEDS: GABAPENTIN 300 MG CAPSULE PO ×3 (08:46→17:19)
[2023-11-11] MEDS: NYSTATIN 100,000 UNITS/ML SUSP 5 ML ORAL.SUSP PO ×4 (08:46→20:49)
[2023-11-11] MEDS: EUCERIN CREAM 120 GM JAR 1 APPLIC TOPICAL (08:47)
--- NOTE | 2023-11-11 09:17 | P.PNIM_ITS ---
Progress Note: A&P Assessment and Plan (1) Sepsis: Code(s): A41.9 - Sepsis, unspecified organism Status: Acute Assessment and Plan: - meets SIRS criteria: HR, WBC. No hypotension or hypoxia. - lactic acid: 1.0 - 30 mL/kg = 2300. given 1L bolus of NS, adding 1L bolus of LR -> 125 mL/hr of NS. - suspected source: diverticulitis, perisigmoid abscess - started on Zosyn and Flagyl on 11/03 - blood cultures drawn on 11/03 - UA: specific gravity 1.039, otherwise unremarkable 11/04: * WBC downtrending. 25-->19.1 * afebrile overnight * Blood pressures stable * Continue Zosyn and Flagyl per surgery * blood cultures pending 11/05: * Leukocytosis still resolving. White count 12.9 today * Afebrile overnight * Preliminary read on blood cultures with no growth 11/06: * WBC increased to 12.9-->15.9 * afebrile, remainder of VSS * Culture from abscess is growing streptococcus anginosus. On Zosyn. * May need repeat CT abdomen and pelvis if WBC continues to rise 11/07: * WBC 12.9-->--15.9-->18.5 * Afebrile * Continue Zosyn and Flagyl * Ordered CT abdomen/pelvis shows 6.7 x 6.2 x 3.3 cm perisigmoid abscess * NPO at [place] for drain placement 11/08 * Also ordered stool sample to r/o c-diff as she has been having frequent bowel movements 11/08: * WBC 12.9-->15.9-->18.5-->15.6 * afebrile * NPO for drain placement * C-diff negative 11/09: * WBC 12.9-->15.9-->18.5-->15.6-->12.7 * afebrile * IR drain with purulent drainage * Clinically continues to improve. Unsure if patient will d/c with drain in place or if she will remain inpatient until drain can be removed. * Plan to continue IV antibiotics. Culture growing bacteroides fragilis and streptococcus anginosus. Currently on zosyn and PO flagyl. Anticipate de- escalating to Rocehpin or even PO Augmentin. Antibiotics per surgery. 11/10: White blood cell count 11.1 Antibiotics per surgery (2) Sigmoid diverticulitis: Code(s): K57.32 - Diverticulitis of large intestine without perforation or abscess without bleeding Status: Deleted Assessment and Plan: - CT abd/pelvis: Sigmoid diverticulitis with perisigmoid abscess. 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 - started on Zosyn and Flagyl on 11/03 - WBC 25 - IV fluids and monitor I&Os - trend labs 11/04: * surgery consult, rec's appreciated * NPO for possible intervention * Zosyn, Flagyl, and IVF * morphine prn for pain, Zofran prn for nausea 11/05: * IR drain was placed yesterday. Drain was displaced when patient got up to go to the restroom. * CT abdomen pelvis shows drain no longer in abscess * Patient made NPO for possible drain replacement today * Decreased IV fluids to 100 ml/hr 11/06: * IVF D/c'd * regular diet * having loose stools--add probiotic 11/07: * c-diff ordered 11/08: * C-diff negative * Florastor BID 11/09: * stools are more formed and less frequent (3) Abscess of sigmoid colon due to diverticulitis: Code(s): K57.20 - Diverticulitis of large intestine with perforation and abscess without bleeding Status: Deleted Assessment and Plan: - CT abd/pelvis: sigmoid diverticulitis with perisigmoid abscess. the volume of gas in the abscess suggests a fistula t
--- NOTE | 2023-11-11 09:17 | PM.IMPN ---
Progress Note: A&P Assessment and Plan (1) Sepsis: Code(s): A41.9 - Sepsis, unspecified organism Status: Acute Assessment and Plan: - meets SIRS criteria: HR, WBC. No hypotension or hypoxia. - lactic acid: 1.0 - 30 mL/kg = 2300. given 1L bolus of NS, adding 1L bolus of LR -> 125 mL/hr of NS. - suspected source: diverticulitis, perisigmoid abscess - started on Zosyn and Flagyl on 11/03 - blood cultures drawn on 11/03 - UA: specific gravity 1.039, otherwise unremarkable 11/04: WBC downtrending. 25-->19.1 afebrile overnight Blood pressures stable Continue Zosyn and Flagyl per surgery blood cultures pending 11/05: Leukocytosis still resolving. White count 12.9 today Afebrile overnight Preliminary read on blood cultures with no growth 11/06: WBC increased to 12.9-->15.9 afebrile, remainder of VSS Culture from abscess is growing streptococcus anginosus. On Zosyn. May need repeat CT abdomen and pelvis if WBC continues to rise 11/07: WBC 12.9-->--15.9-->18.5 Afebrile Continue Zosyn and Flagyl Ordered CT abdomen/pelvis shows 6.7 x 6.2 x 3.3 cm perisigmoid abscess NPO at OR for drain placement 11/08 Also ordered stool sample to r/o c-diff as she has been having frequent bowel movements 11/08: WBC 12.9-->15.9-->18.5-->15.6 afebrile NPO for drain placement C-diff negative 11/09: WBC 12.9-->15.9-->18.5-->15.6-->12.7 afebrile IR drain with purulent drainage Clinically continues to improve. Unsure if patient will d/c with drain in place or if she will remain inpatient until drain can be removed. Plan to continue IV antibiotics. Culture growing bacteroides fragilis and streptococcus anginosus. Currently on zosyn and PO flagyl. Anticipate de-escalating to Rocehpin or even PO Augmentin. Antibiotics per surgery. 11/10: White blood cell count 11.1 Antibiotics per surgery (2) Sigmoid diverticulitis: Code(s): K57.32 - Diverticulitis of large intestine without perforation or abscess without bleeding Status: Deleted Assessment and Plan: - CT abd/pelvis: Sigmoid diverticulitis with perisigmoid abscess. 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 - started on Zosyn and Flagyl on 11/03 - WBC 25 - IV fluids and monitor I&Os - trend labs 11/04: surgery consult, rec's appreciated NPO for possible intervention Zosyn, Flagyl, and IVF morphine prn for pain, Zofran prn for nausea 11/05: IR drain was placed yesterday. Drain was displaced when patient got up to go to the restroom. CT abdomen pelvis shows drain no longer in abscess Patient made NPO for possible drain replacement today Decreased IV fluids to 100 ml/hr 11/06: IVF D/c'd regular diet having loose stools--add probiotic 11/07: c-diff ordered 11/08: C-diff negative Florastor BID 11/09: stools are more formed and less frequent (3) Abscess of sigmoid colon due to diverticulitis: Code(s): K57.20 - Diverticulitis of large intestine with perforation and abscess without bleeding Status: Deleted Assessment and Plan: - CT abd/pelvis: sigmoid diverticulitis with perisigmoid abscess. 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 - General Surgery consulted, awaiting recs - NPO See plan 2 (4) Hypokalemia: Code(s): E87.6 - Hypokalemia Status: Acute Assessment and Plan: - K 2.6 - starting repletion with KCl 40 IVPB and one time dose of 40 mg PO - repeat bmp at 2200 - continue to trend/correct 11/04: K+ 3.3, phos 2.3 IVP K+Phos replacement ordered On telemetry 11/05: K+ 3.0, Mag pending Ordered 40 mEq of oral K and 40 mEq IV x1 Telemetry 11/06: K+ 3.0, replace with K 40 meq 11/07: K 3.5 meq 11/08: K+ 3.0 meq K+ 40 PO meq x2 today 11/10: Potassium 3.5 today (5) Hypertension: Code(s): I10 - Zaneen
[2023-11-11] MEDS: ACETAMINOPHEN 325 MG TABLET 650 MG PO (09:27)
[2023-11-11] MEDS: NEOMYCIN/POLYMYXIN/HYDROCORT OT SUSP 10 ML BTL (*BKC) 4 DROP EACH EAR ×2 (13:28→20:50)
--- NOTE | 2023-11-11 13:58 | PM.PNGS ---
Progress Note: A&P Assessment and Plan (1) Diverticulitis of large intestine with abscess: Code(s): K57.20 - Diverticulitis of large intestine with perforation and abscess without bleeding Status: Acute Assessment and Plan: S/p transgluteal percutaneous drainage of pelvic abscess on 11/08. WBC continues to trend down. She is tolerating a regular diet. No longer having any abdominal pain and abdominal exam is benign. Cultures from initial drainage growing bacteroides fragilis and streptococcus anginosus. Continue IV antibiotics. Supportive management for now. Will plan to repeat a CT scan later this week to re-evaluate abscess. Plan I have discussed the patient's case and plan of care with Dr. Johnson. Subjective Subjective Date/Time Seen: 11/11/23 13:58 Patient reports: feels better, tolerating a regular diet, bowel movement and afebrile Interval history: Reportedly improving daily. Denies any abdominal pain today. Her only complaint is some pain and tenderness at the transgluteal perc drain site. No nausea or vomiting. Tolerating her diet. Exam Const: General: comfortable and no acute distress Orientation/consciousness: patient oriented x3 GI: Inspection: non-distended GI Palp: Yes Soft to palpation, No Tenderness to palpation present (GI), No Guarding due to palpation present (GI) and No Rebound tenderness present Auscultation: normal bowel sounds Other: Left transgluteal percutaneous drain with donaldson purulent drainage, dressing dry and intact Objective Data Vital Signs Vital Signs: Vital Signs - 24 hr 11/10/23 14:00 11/10/23 16:00 11/10/23 19:30 Temperature 98.3 F 99.1 F Pulse Rate 76 74 81 Respiratory Rate 16 17 Blood Pressure 125/68 136/86 Pulse Oximetry 98 99 Oxygen Delivery 11/10/23 20:37 11/10/23 20:00 11/10/23 20:00 Temperature Pulse Rate 80 Respiratory Rate Blood Pressure Pulse Oximetry 99 Oxygen Delivery Room Air Room Air 11/11/23 00:00 11/11/23 04:00 11/11/23 04:56 Temperature 98.8 F Pulse Rate 73 70 80 Respiratory Rate 18 Blood Pressure 140/88 Pulse Oximetry 100 Oxygen Delivery Intake/Output Intake/Output: Intake & Output 11/08/23 11/09/23 11/10/23 11/11/23 23:59 23:59 23:59 23:59 Intake Total 840 9581 198 2218 Balance 840 3893 803 7253 Meds/Results Medications: Active Medications Generic Name Dose Route Start Last Admin Trade Name Freq PRN Reason Stop Dose Admin Acetaminophen 650 mg 11/04/23 20:45 11/11/23 09:27 Acetaminophen 325 Mg Tablet PO 650 mg Q4H PRN Administration Mild Pain (1-3) or Fever Enoxaparin Sodium 40 mg 11/08/23 09:00 11/11/23 08:46 Enoxaparin 40 Mg/0.4 Ml Syringe SUB-Q 40 mg DAILY MANASA Administration Gabapentin 300 mg 11/05/23 17:20 11/11/23 12:36 Gabapentin 300 Mg Capsule PO 300 mg TID MANASA Administration Hydralazine HCl 10 mg 11/04/23 20:42 Hydralazine Hcl 20 Mg/Ml Vial IV PUSH Q8H PRN Blood Pressure - High Piperacillin/Tazobactam/Dextrose 3.375 gm in 50 mls @ 100 mls/hr 11/05/23 00:00 11/11/23 12:36 Zosyn 3.375 Gm/Ns 50 Ml IVPB 100 mls/hr Q6HR MANASA Administration Metronidazole 500 mg 11/09/23 22:00 11/11/23 13:27 Metronidazole 500 Mg Tablet PO 500 mg Q8HR MANASA Administration Morphine Sulfate 2 mg 11/04/23 17:09 11/09/23 21:23 Morphine Sulfate (*Crx) 2 Mg/Ml Inj IV PUSH 2 mg Q2H PRN Administration Pain Rated 7-10 Multi-Ingred Cream/Lotion/Oil/Oint 1 applic 11/05/23 09:00 11/11/23 08:47 Eucerin Cream 120 Gm Jar TOPICAL 1 applic DAILY MANASA Administration Neomycin/Polymyxin/Hydrocortisone 4 drop 11/04/23 20:45 11/11/23 13:28 Neomycin/Polymyxin/Hydrocort Ot Susp 10 Ml Btl (*Bkc) EACH EAR 4 drop Q8HR MANASA Administration Nystatin 5 ml 11/05/23 21:00 11/11/23 12:36 Nystatin 100,000 Units/Ml Susp 5 Ml Oral.Susp PO 5 ml QID MANASA Administration Ondansetron HCl 4 mg 11/03
[2023-11-11 14:00] VITALS: BP 134/75; PULSE 77; RESP 18; TEMP 37.3; O2SAT 98
[2023-11-11 20:29] VITALS: BP 119/72; PULSE 77; RESP 14; TEMP 36.9; O2SAT 98
[2023-11-11 21:06] VITALS: O2SAT 98
[2023-11-12] MEDS: metroNIDAZOLE 500 MG TABLET PO ×3 (05:05→21:06)
[2023-11-12] MEDS: NEOMYCIN/POLYMYXIN/HYDROCORT OT SUSP 10 ML BTL (*BKC) 4 DROP EACH EAR ×3 (05:05→21:06)
[2023-11-12] MEDS: PIPERACILLN/TAZ 3.375GM/NS50ML 3.375 GM/50 ML BAG IVPB ×5 (05:05→23:55)
[2023-11-12 05:17] VITALS: BP 145/91; PULSE 69; RESP 16; TEMP 36.8; O2SAT 99
[2023-11-12 05:35] LABS: Basophils Percent Auto 0.3 % (0.2-1.2); Eosinophils Percent Auto 0.3 % (0-4.4); Hematocrit 30.6 % (37.0-47.0); Immature Granulocyte Absolute 0.11 K/mm3 (0.00-0.031); Lymphocytes Percent Auto 22.8 % (18.3-44.2); Mean Corpuscular HGB Conc 32.7 g/dl (32-36); Mean Corpuscular Hemoglobin 30.2 pg (26-34); Mean Corpuscular Volume 92.4 fl (80-100); Mean Platelet Volume 9.8 fl (7.4-10.4); Monocytes Absolute Auto 0.9 K/mm3 (0.1-0.6); Monocytes Percent Auto 8.2 % (2.6-8.5); Neutrophils Absolute Auto 7.1 K/mm3 (1.3-6.7); Neutrophils Percent Auto 67.4 % (45.5-73.1); Platelet Count Result 419 k/mm3 (150-375); Red Blood Count 3.31 M/mm3 (4.2-5.4); Red Cell Distribution Width 15.3 % (11.5-14.5); White Blood Count 10.5 K/mm3 (4.5-10.0)
[2023-11-12 05:53] LABS: Alanine Aminotransferase 31 U/L (6-35); Albumin Level 3.3 g/dL (3.5-5.1); Alkaline Phosphatase 70 U/L (38-126); Anion Gap 4 mmol/L (4-12); Aspartate Amino Transferase 44 U/L (14-36); Bilirubin,Total 0.4 mg/dL (0.2-1.3); Blood Urea Nitrogen 6 mg/dL (7-17); Calcium 8.5 mg/dL (8.4-10.2); Carbon Dioxide 29 mmol/L (22-30); Chloride 107 mmol/L (98-107); Estimated CRCL calculation 58 ml/min; Estimated Glomerular Filt Rate > 60; Glucose 112 mg/dL (65-110); Magnesium 1.9 mg/dL (1.6-2.3); Potassium 3.5 mmol/L (3.4-5.0); Sodium 140 mmol/L (137-145)
[2023-11-12] MEDS: NYSTATIN 100,000 UNITS/ML SUSP 5 ML ORAL.SUSP PO ×4 (08:36→21:06)
[2023-11-12] MEDS: SACCHAROMYCES BOULARDII 250 MG CAPSULE PO ×2 (08:36→17:04)
[2023-11-12] MEDS: ENOXAPARIN 40 MG/0.4 ML SYRINGE SUB-Q (08:36)
[2023-11-12] MEDS: GABAPENTIN 300 MG CAPSULE PO ×3 (08:36→17:04)
[2023-11-12] MEDS: PANTOPRAZOLE SODIUM IV 40 MG VIAL IV PUSH (08:36)
[2023-11-12] MEDS: EUCERIN CREAM 120 GM JAR 1 APPLIC TOPICAL (08:37)
--- NOTE | 2023-11-12 11:58 | P.PNIM_ITS ---
Progress Note: A&P Assessment and Plan (1) Sepsis: Code(s): A41.9 - Sepsis, unspecified organism Status: Acute Assessment and Plan: - meets SIRS criteria: HR, WBC. No hypotension or hypoxia. - lactic acid: 1.0 - 30 mL/kg = 2300. given 1L bolus of NS, adding 1L bolus of LR -> 125 mL/hr of NS. - suspected source: diverticulitis, perisigmoid abscess - started on Zosyn and Flagyl on 11/03 - blood cultures drawn on 11/03 - UA: specific gravity 1.039, otherwise unremarkable 11/04: * WBC downtrending. 25-->19.1 * afebrile overnight * Blood pressures stable * Continue Zosyn and Flagyl per surgery * blood cultures pending 11/05: * Leukocytosis still resolving. White count 12.9 today * Afebrile overnight * Preliminary read on blood cultures with no growth 11/06: * WBC increased to 12.9-->15.9 * afebrile, remainder of VSS * Culture from abscess is growing streptococcus anginosus. On Zosyn. * May need repeat CT abdomen and pelvis if WBC continues to rise 11/07: * WBC 12.9-->--15.9-->18.5 * Afebrile * Continue Zosyn and Flagyl * Ordered CT abdomen/pelvis shows 6.7 x 6.2 x 3.3 cm perisigmoid abscess * NPO at [place] for drain placement 11/08 * Also ordered stool sample to r/o c-diff as she has been having frequent bowel movements 11/08: * WBC 12.9-->15.9-->18.5-->15.6 * afebrile * NPO for drain placement * C-diff negative 11/09: * WBC 12.9-->15.9-->18.5-->15.6-->12.7 * afebrile * IR drain with purulent drainage * Clinically continues to improve. Unsure if patient will d/c with drain in place or if she will remain inpatient until drain can be removed. * Plan to continue IV antibiotics. Culture growing bacteroides fragilis and streptococcus anginosus. Currently on zosyn and PO flagyl. Anticipate de- escalating to Rocehpin or even PO Augmentin. Antibiotics per surgery. 11/10: White blood cell count 11.1 Antibiotics per surgery 11/11: White blood cell count continued to trend down. (2) Sigmoid diverticulitis: Code(s): K57.32 - Diverticulitis of large intestine without perforation or abscess without bleeding Status: Deleted Assessment and Plan: - CT abd/pelvis: Sigmoid diverticulitis with perisigmoid abscess. 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 - started on Zosyn and Flagyl on 11/03 - WBC 25 - IV fluids and monitor I&Os - trend labs 11/04: * surgery consult, rec's appreciated * NPO for possible intervention * Zosyn, Flagyl, and IVF * morphine prn for pain, Zofran prn for nausea 11/05: * IR drain was placed yesterday. Drain was displaced when patient got up to go to the restroom. * CT abdomen pelvis shows drain no longer in abscess * Patient made NPO for possible drain replacement today * Decreased IV fluids to 100 ml/hr 11/06: * IVF D/c'd * regular diet * having loose stools--add probiotic 11/07: * c-diff ordered 11/08: * C-diff negative * Florastor BID 11/09: * stools are more formed and less frequent 11/11: Drain remains in place with pus drainage (3) Abscess of sigmoid colon due to diverticulitis: Code(s): K57.20 - Diverticulitis of large intestine with perforation and abscess without bleeding Status: Deleted Assessment and Plan: - CT abd/pelvis: sigmo
--- NOTE | 2023-11-12 11:58 | PM.IMPN ---
Progress Note: A&P Assessment and Plan (1) Sepsis: Code(s): A41.9 - Sepsis, unspecified organism Status: Acute Assessment and Plan: - meets SIRS criteria: HR, WBC. No hypotension or hypoxia. - lactic acid: 1.0 - 30 mL/kg = 2300. given 1L bolus of NS, adding 1L bolus of LR -> 125 mL/hr of NS. - suspected source: diverticulitis, perisigmoid abscess - started on Zosyn and Flagyl on 11/03 - blood cultures drawn on 11/03 - UA: specific gravity 1.039, otherwise unremarkable 11/04: WBC downtrending. 25-->19.1 afebrile overnight Blood pressures stable Continue Zosyn and Flagyl per surgery blood cultures pending 11/05: Leukocytosis still resolving. White count 12.9 today Afebrile overnight Preliminary read on blood cultures with no growth 11/06: WBC increased to 12.9-->15.9 afebrile, remainder of VSS Culture from abscess is growing streptococcus anginosus. On Zosyn. May need repeat CT abdomen and pelvis if WBC continues to rise 11/07: WBC 12.9-->--15.9-->18.5 Afebrile Continue Zosyn and Flagyl Ordered CT abdomen/pelvis shows 6.7 x 6.2 x 3.3 cm perisigmoid abscess NPO at CT for drain placement 11/08 Also ordered stool sample to r/o c-diff as she has been having frequent bowel movements 11/08: WBC 12.9-->15.9-->18.5-->15.6 afebrile NPO for drain placement C-diff negative 11/09: WBC 12.9-->15.9-->18.5-->15.6-->12.7 afebrile IR drain with purulent drainage Clinically continues to improve. Unsure if patient will d/c with drain in place or if she will remain inpatient until drain can be removed. Plan to continue IV antibiotics. Culture growing bacteroides fragilis and streptococcus anginosus. Currently on zosyn and PO flagyl. Anticipate de-escalating to Rocehpin or even PO Augmentin. Antibiotics per surgery. 11/10: White blood cell count 11.1 Antibiotics per surgery 11/11: White blood cell count continued to trend down. (2) Sigmoid diverticulitis: Code(s): K57.32 - Diverticulitis of large intestine without perforation or abscess without bleeding Status: Deleted Assessment and Plan: - CT abd/pelvis: Sigmoid diverticulitis with perisigmoid abscess. 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 - started on Zosyn and Flagyl on 11/03 - WBC 25 - IV fluids and monitor I&Os - trend labs 11/04: surgery consult, rec's appreciated NPO for possible intervention Zosyn, Flagyl, and IVF morphine prn for pain, Zofran prn for nausea 11/05: IR drain was placed yesterday. Drain was displaced when patient got up to go to the restroom. CT abdomen pelvis shows drain no longer in abscess Patient made NPO for possible drain replacement today Decreased IV fluids to 100 ml/hr 11/06: IVF D/c'd regular diet having loose stools--add probiotic 11/07: c-diff ordered 11/08: C-diff negative Florastor BID 11/09: stools are more formed and less frequent 11/11: Drain remains in place with pus drainage (3) Abscess of sigmoid colon due to diverticulitis: Code(s): K57.20 - Diverticulitis of large intestine with perforation and abscess without bleeding Status: Deleted Assessment and Plan: - CT abd/pelvis: sigmoid diverticulitis with perisigmoid abscess. 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 - General Surgery consulted, awaiting recs - NPO See plan 2 (4) Hypokalemia: Code(s): E87.6 - Hypokalemia Status: Acute Assessment and Plan: - K 2.6 - starting repletion with KCl 40 IVPB and one time dose of 40 mg PO - repeat bmp at 2200 - continue to trend/correct 11/04: K+ 3.3, phos 2.3 IVP K+Phos replacement ordered On telemetry 11/05: K+ 3.0, Mag pending Ordered 40 mEq of oral K and 40 mEq IV x1 Telemetry 11/06: K+ 3.0, replace with K 40 meq 11/07: K 3.5 meq 11/08: K+ 3.0 meq K+ 40 PO meq x2
[2023-11-12] MEDS: ACETAMINOPHEN 325 MG TABLET 650 MG PO (13:22)
--- NOTE | 2023-11-12 16:39 | WPDPN ---
Progress Note: A&P Assessment and Plan (1) Diverticulitis of large intestine with abscess: Code(s): K57.20 - Diverticulitis of large intestine with perforation and abscess without bleeding Status: Acute Assessment and Plan: Patient continues to improve. Continue IV antibiotics for now. White blood cell count is almost normal. Will repeat CT scan without contrast tomorrow and if the abscess is still resolved then can consider removing the pelvic transgluteal drain and discharged on oral antibiotics. Continue supportive management for now. Subjective Date/time seen: 11/12/23 16:39 Interval history: Patient feels better today. Less left lower quadrant abdominal pain. No fevers. New pelvic drain minimal output. White Blood cell count is now decreased down to 10,500 which is almost normal. She is tolerating low fiber diet and having semi formed stools. Exam GI: Other: Abdomen is soft and nondistended. Minimal tenderness to the palpation lower abdomen. A transgluteal drain in place without redness around the drain site. Objective Data Vital Signs Vital Signs: Vital Signs - 24 hr 11/11/23 19:48 11/11/23 20:29 11/11/23 21:06 Temperature 36.9 C Pulse Rate 77 Respiratory Rate 14 Blood Pressure 119/72 Pulse Oximetry 98 98 Oxygen Delivery Room Air Room Air 11/12/23 05:17 11/12/23 08:30 Temperature 36.8 C Pulse Rate 69 Respiratory Rate 16 Blood Pressure 145/91 H Pulse Oximetry 99 Oxygen Delivery Room Air Intake/Output Intake/Output: Intake & Output 11/09/23 11/10/23 11/11/23 11/12/23 23:59 23:59 23:59 23:59 Intake Total 5293 077 3526 980 Balance 0917 279 2816 980 Meds/Results Medications: Active Medications Generic Name Dose Route Start Last Admin Trade Name Freq PRN Reason Stop Dose Admin Acetaminophen 650 mg 11/04/23 20:45 11/12/23 13:22 Acetaminophen 325 Mg Tablet PO 650 mg Q4H PRN Administration Mild Pain (1-3) or Fever Enoxaparin Sodium 40 mg 11/08/23 09:00 11/12/23 08:36 Enoxaparin 40 Mg/0.4 Ml Syringe SUB-Q 40 mg DAILY MANASA Administration Gabapentin 300 mg 11/05/23 17:20 11/12/23 13:19 Gabapentin 300 Mg Capsule PO 300 mg TID MANASA Administration Hydralazine HCl 10 mg 11/04/23 20:42 Hydralazine Hcl 20 Mg/Ml Vial IV PUSH Q8H PRN Blood Pressure - High Piperacillin/Tazobactam/Dextrose 3.375 gm in 50 mls @ 100 mls/hr 11/05/23 00:00 11/12/23 11:27 Zosyn 3.375 Gm/Ns 50 Ml IVPB 100 mls/hr Q6HR MANASA Administration Metronidazole 500 mg 11/09/23 22:00 11/12/23 13:19 Metronidazole 500 Mg Tablet PO 500 mg Q8HR MANASA Administration Morphine Sulfate 2 mg 11/04/23 17:09 11/09/23 21:23 Morphine Sulfate (*Crx) 2 Mg/Ml Inj IV PUSH 2 mg Q2H PRN Administration Pain Rated 7-10 Multi-Ingred Cream/Lotion/Oil/Oint 1 applic 11/05/23 09:00 11/12/23 08:37 Eucerin Cream 120 Gm Jar TOPICAL 1 applic DAILY MANASA Administration Neomycin/Polymyxin/Hydrocortisone 4 drop 11/04/23 20:45 11/12/23 13:19 Neomycin/Polymyxin/Hydrocort Ot Susp 10 Ml Btl (*Bkc) EACH EAR 4 drop Q8HR MANASA Administration Nystatin 5 ml 11/05/23 21:00 11/12/23 13:19 Nystatin 100,000 Units/Ml Susp 5 Ml Oral.Susp PO 5 ml QID MANASA Administration Ondansetron HCl 4 mg 11/04/23 17:09 Ondansetron Inj 4 Mg/2 Ml Vial IV PUSH Q4H PRN Nausea Pantoprazole Sodium 40 mg 11/13/23 09:00 Pantoprazole 40 Mg Tablet PO QAM [facility] Saccharomyces Boulardii 250 mg 11/07/23 17:00 11/12/23 08:36 Saccharomyces Boulardii 250 Mg Capsule PO 250 mg BID MANASA Administration Radiology Results: ITS Impressions Pelvis CT 11/05/23 18:22 IMPRESSION: 1. Acute sigmoid diverticulitis with perisigmoid abscess with interval improvement. 2. Dislodged percutaneous drain, which is no longer in the abscess. Abdomen/Pelvis CT 11/08/23 10:24 IMPRESSION: 1. Acute sigmoid
[2023-11-12 17:29] VITALS: BP 140/96; PULSE 76; RESP 17; TEMP 36.4; O2SAT 100
[2023-11-12 21:48] VITALS: BP 150/87; PULSE 75; RESP 18; TEMP 36.5; O2SAT 100
[2023-11-13 05:00] LABS: Basophils Absolute Auto 0.1 K/mm3 (0.0-0.1); Basophils Percent Auto 0.5 % (0.2-1.2); Eosinophils Absolute Auto 0.1 K/mm3 (0-0.3); Eosinophils Percent Auto 0.5 % (0-4.4); Hematocrit 30.7 % (37.0-47.0); Hemoglobin 9.8 g/dL (12.0-15.0); Immature Granulocyte Absolute 0.11 K/mm3 (0.00-0.031); Immature Granulocyte Percent A 1.1 % (0-0.5); Lymphocytes Absolute Auto 2.32 K/mm3 (0.9-3.2); Lymphocytes Percent Auto 22.5 % (18.3-44.2); Mean Corpuscular HGB Conc 31.9 g/dl (32-36); Mean Corpuscular Hemoglobin 30.3 pg (26-34); Mean Platelet Volume 9.6 fl (7.4-10.4); Monocytes Absolute Auto 0.9 K/mm3 (0.1-0.6); Monocytes Percent Auto 8.8 % (2.6-8.5); Neutrophils Absolute Auto 6.9 K/mm3 (1.3-6.7); Neutrophils Percent Auto 66.6 % (45.5-73.1); Platelet Count Result 418 k/mm3 (150-375); Red Blood Count 3.23 M/mm3 (4.2-5.4); Red Cell Distribution Width 15.6 % (11.5-14.5); White Blood Count 10.3 K/mm3 (4.5-10.0)
[2023-11-13] MEDS: PIPERACILLN/TAZ 3.375GM/NS50ML 3.375 GM/50 ML BAG IVPB (05:05)
[2023-11-13] MEDS: metroNIDAZOLE 500 MG TABLET PO ×3 (05:08→21:22)
[2023-11-13 05:10] LABS: Hypochromasia 1+; Platelet Estimate Increased (Adequate); Schistocytes None Seen
[2023-11-13] MEDS: NEOMYCIN/POLYMYXIN/HYDROCORT OT SUSP 10 ML BTL (*BKC) 4 DROP EACH EAR (05:10)
[2023-11-13 05:11] LABS: Alanine Aminotransferase 26 U/L (6-35); Albumin Level 3.1 g/dL (3.5-5.1); Alkaline Phosphatase 62 U/L (38-126); Anion Gap 3 mmol/L (4-12); Aspartate Amino Transferase 44 U/L (14-36); Bilirubin,Total 0.4 mg/dL (0.2-1.3); Blood Urea Nitrogen 7 mg/dL (7-17); Calcium 8.4 mg/dL (8.4-10.2); Carbon Dioxide 29 mmol/L (22-30); Chloride 106 mmol/L (98-107); Estimated CRCL calculation 58 ml/min; Estimated Glomerular Filt Rate > 60; Glucose 105 mg/dL (65-110); Magnesium 2.1 mg/dL (1.6-2.3); Potassium 3.8 mmol/L (3.4-5.0); Sodium 138 mmol/L (137-145)
[2023-11-13 05:26] VITALS: BP 146/78; PULSE 67; RESP 17; TEMP 36.4; O2SAT 99
[2023-11-13] MEDS: SACCHAROMYCES BOULARDII 250 MG CAPSULE PO ×2 (10:12→17:54)
[2023-11-13] MEDS: ENOXAPARIN 40 MG/0.4 ML SYRINGE SUB-Q (10:12)
[2023-11-13] MEDS: GABAPENTIN 300 MG CAPSULE PO ×3 (10:12→17:54)
[2023-11-13] MEDS: EUCERIN CREAM 120 GM JAR 1 APPLIC TOPICAL (10:13)
[2023-11-13] MEDS: PANTOPRAZOLE 40 MG TABLET PO (10:13)
[2023-11-13] MEDS: NYSTATIN 100,000 UNITS/ML SUSP 5 ML ORAL.SUSP PO ×4 (10:13→21:21)
--- NOTE | 2023-11-13 13:04 | P.PNIM_ITS ---
Progress Note: A&P Assessment and Plan (1) Sepsis: Code(s): A41.9 - Sepsis, unspecified organism Status: Acute Assessment and Plan: - meets SIRS criteria: HR, WBC. No hypotension or hypoxia. - lactic acid: 1.0 - 30 mL/kg = 2300. given 1L bolus of NS, adding 1L bolus of LR -> 125 mL/hr of NS. - suspected source: diverticulitis, perisigmoid abscess - started on Zosyn and Flagyl on 11/03 - blood cultures drawn on 11/03 - UA: specific gravity 1.039, otherwise unremarkable 11/04: * WBC downtrending. 25-->19.1 * afebrile overnight * Blood pressures stable * Continue Zosyn and Flagyl per surgery * blood cultures pending 11/05: * Leukocytosis still resolving. White count 12.9 today * Afebrile overnight * Preliminary read on blood cultures with no growth 11/06: * WBC increased to 12.9-->15.9 * afebrile, remainder of VSS * Culture from abscess is growing streptococcus anginosus. On Zosyn. * May need repeat CT abdomen and pelvis if WBC continues to rise 11/07: * WBC 12.9-->--15.9-->18.5 * Afebrile * Continue Zosyn and Flagyl * Ordered CT abdomen/pelvis shows 6.7 x 6.2 x 3.3 cm perisigmoid abscess * NPO at [place] for drain placement 11/08 * Also ordered stool sample to r/o c-diff as she has been having frequent bowel movements 11/08: * WBC 12.9-->15.9-->18.5-->15.6 * afebrile * NPO for drain placement * C-diff negative 11/09: * WBC 12.9-->15.9-->18.5-->15.6-->12.7 * afebrile * IR drain with purulent drainage * Clinically continues to improve. Unsure if patient will d/c with drain in place or if she will remain inpatient until drain can be removed. * Plan to continue IV antibiotics. Culture growing bacteroides fragilis and streptococcus anginosus. Currently on zosyn and PO flagyl. Anticipate de- escalating to Rocehpin or even PO Augmentin. Antibiotics per surgery. 11/10: White blood cell count 11.1 Antibiotics per surgery 11/11: White blood cell count continued to trend down. 11/12: White blood cell count 10, Wound culture shows resistance to Zosyn. (2) Sigmoid diverticulitis: Code(s): K57.32 - Diverticulitis of large intestine without perforation or abscess without bleeding Status: Deleted Assessment and Plan: - CT abd/pelvis: Sigmoid diverticulitis with perisigmoid abscess. 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 - started on Zosyn and Flagyl on 11/03 - WBC 25 - IV fluids and monitor I&Os - trend labs 11/04: * surgery consult, rec's appreciated * NPO for possible intervention * Zosyn, Flagyl, and IVF * morphine prn for pain, Zofran prn for nausea 11/05: * IR drain was placed yesterday. Drain was displaced when patient got up to go to the restroom. * CT abdomen pelvis shows drain no longer in abscess * Patient made NPO for possible drain replacement today * Decreased IV fluids to 100 ml/hr 11/06: * IVF D/c'd * regular diet * having loose stools--add probiotic 11/07: * c-diff ordered 11/08: * C-diff negative * Florastor BID 11/09: * stools are more formed and less frequent 11/11: Drain remains in place with pus drainage 11/12: Upsize drain and change antibiotics (3) Abscess of sigmoid colon due to diverticulitis: Code(s): K57.20 - Diverticulitis of large intestine with perforation and abscess
--- NOTE | 2023-11-13 13:04 | PM.IMPN ---
Progress Note: A&P Assessment and Plan (1) Sepsis: Code(s): A41.9 - Sepsis, unspecified organism Status: Acute Assessment and Plan: - meets SIRS criteria: HR, WBC. No hypotension or hypoxia. - lactic acid: 1.0 - 30 mL/kg = 2300. given 1L bolus of NS, adding 1L bolus of LR -> 125 mL/hr of NS. - suspected source: diverticulitis, perisigmoid abscess - started on Zosyn and Flagyl on 11/03 - blood cultures drawn on 11/03 - UA: specific gravity 1.039, otherwise unremarkable 11/04: WBC downtrending. 25-->19.1 afebrile overnight Blood pressures stable Continue Zosyn and Flagyl per surgery blood cultures pending 11/05: Leukocytosis still resolving. White count 12.9 today Afebrile overnight Preliminary read on blood cultures with no growth 11/06: WBC increased to 12.9-->15.9 afebrile, remainder of VSS Culture from abscess is growing streptococcus anginosus. On Zosyn. May need repeat CT abdomen and pelvis if WBC continues to rise 11/07: WBC 12.9-->--15.9-->18.5 Afebrile Continue Zosyn and Flagyl Ordered CT abdomen/pelvis shows 6.7 x 6.2 x 3.3 cm perisigmoid abscess NPO at [place] for drain placement 11/08 Also ordered stool sample to r/o c-diff as she has been having frequent bowel movements 11/08: WBC 12.9-->15.9-->18.5-->15.6 afebrile NPO for drain placement C-diff negative 11/09: WBC 12.9-->15.9-->18.5-->15.6-->12.7 afebrile IR drain with purulent drainage Clinically continues to improve. Unsure if patient will d/c with drain in place or if she will remain inpatient until drain can be removed. Plan to continue IV antibiotics. Culture growing bacteroides fragilis and streptococcus anginosus. Currently on zosyn and PO flagyl. Anticipate de-escalating to Rocehpin or even PO Augmentin. Antibiotics per surgery. 11/10: White blood cell count 11.1 Antibiotics per surgery 11/11: White blood cell count continued to trend down. 11/12: White blood cell count 10, Wound culture shows resistance to Zosyn. (2) Sigmoid diverticulitis: Code(s): K57.32 - Diverticulitis of large intestine without perforation or abscess without bleeding Status: Deleted Assessment and Plan: - CT abd/pelvis: Sigmoid diverticulitis with perisigmoid abscess. 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 - started on Zosyn and Flagyl on 11/03 - WBC 25 - IV fluids and monitor I&Os - trend labs 11/04: surgery consult, rec's appreciated NPO for possible intervention Zosyn, Flagyl, and IVF morphine prn for pain, Zofran prn for nausea 11/05: IR drain was placed yesterday. Drain was displaced when patient got up to go to the restroom. CT abdomen pelvis shows drain no longer in abscess Patient made NPO for possible drain replacement today Decreased IV fluids to 100 ml/hr 11/06: IVF D/c'd regular diet having loose stools--add probiotic 11/07: c-diff ordered 11/08: C-diff negative Florastor BID 11/09: stools are more formed and less frequent 11/11: Drain remains in place with pus drainage 11/12: Upsize drain and change antibiotics (3) Abscess of sigmoid colon due to diverticulitis: Code(s): K57.20 - Diverticulitis of large intestine with perforation and abscess without bleeding Status: Deleted Assessment and Plan: - CT abd/pelvis: sigmoid diverticulitis with perisigmoid abscess. 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 - General Surgery consulted, awaiting recs - NPO See plan 2 (4) Hypokalemia: Code(s): E87.6 - Hypokalemia Status: Acute Assessment and Plan: - K 2.6 - starting repletion with KCl 40 IVPB and one time dose of 40 mg PO - repeat bmp at 2200 - continue to trend/correct 11/04: K+ 3.3, phos 2.3 IVP K+Phos replacement ordered On telemetry 11/05: K+ 3.0, Mag pending Ordered 40 mEq of oral K and 40 mEq IV x1 Tel
[2023-11-13 13:45] VITALS: BP 134/76; PULSE 82; RESP 17; TEMP 36.2; O2SAT 100
[2023-11-13] MEDS: levoFLOXacin 750 MG TABLET PO (13:50)
--- NOTE | 2023-11-13 14:27 | WPDPN ---
Progress Note: A&P Assessment and Plan (1) Diverticulitis of large intestine with abscess: Code(s): K57.20 - Diverticulitis of large intestine with perforation and abscess without bleeding Status: Acute Assessment and Plan: Clinically the patient seems to be very stable with improved condition with present drain in the pelvis. However on repeat CT scan today to follow-up on the abscess drainage there still is a sizable abscess although there is interval improvement. I discussed this with the patient that the radiologist recommended up sizing the drain over a guidewire as an option to address this issue without surgery at this time. She wants to try anything at this point to avoid surgery. I have talked to the radiologist today and he will plan on upsizing the pelvic drain over a guidewire. I did tell the patient that if this does not work to resolve the abscess then surgery will with then be necessary unfortunately sigmoid colon resection and at least temporary end colostomy would likely be needed. Otherwise continue IV antibiotics for now. Subjective Date/time seen: 11/13/23 14:27 Interval history: Patient without acute changes clinically. Still not much abdominal or pelvic pain. Still having some loose bowel movements. Repeat CT scan today shows interval improvement of the pelvic abscess with the IR placed drain however it is still approximately 7x3cm. Radiologist recommended up sizing the drain as a option. White blood cell count remains almost normal at 10,300 thousand three hundred. She has had no fevers. Exam Const: General: comfortable and no acute distress : Other: Abdomen is soft and nondistended. Transgluteal pelvic drain in place. Output is minimal purulent and nonbloody. Minimal tenderness. Objective Data Vital Signs Vital Signs: Vital Signs - 24 hr 11/12/23 17:29 11/12/23 19:32 11/12/23 21:48 Temperature 36.4 C 36.5 C Pulse Rate 76 75 Respiratory Rate 17 18 Blood Pressure 140/96 H 150/87 H Pulse Oximetry 100 100 Oxygen Delivery Room Air 11/13/23 05:26 11/13/23 13:45 11/13/23 10:20 Temperature 36.4 C L 36.2 C L Pulse Rate 67 82 Respiratory Rate 17 17 Blood Pressure 146/78 H 134/76 Pulse Oximetry 99 100 Oxygen Delivery Room Air Intake/Output Intake/Output: Intake & Output 11/10/23 11/11/23 11/12/23 05/24/24 23:59 23:59 23:59 23:59 Intake Total 870 1950 2420 1060 Balance 870 1950 2420 1060 Meds/Results Medications: Active Medications Generic Name Dose Route Start Last Admin Trade Name Freq PRN Reason Stop Dose Admin Acetaminophen 650 mg 11/04/23 20:45 11/12/23 13:22 Acetaminophen 325 Mg Tablet PO 650 mg Q4H PRN Administration Mild Pain (1-3) or Fever Enoxaparin Sodium 40 mg 11/08/23 09:00 11/13/23 10:12 Enoxaparin 40 Mg/0.4 Ml Syringe SUB-Q 40 mg DAILY MANASA Administration Gabapentin 300 mg 11/05/23 17:20 11/13/23 13:50 Gabapentin 300 Mg Capsule PO 300 mg TID MANASA Administration Hydralazine HCl 10 mg 11/04/23 20:42 Hydralazine Hcl 20 Mg/Ml Vial IV PUSH Q8H PRN Blood Pressure - High Levofloxacin 750 mg 11/13/23 12:00 11/13/23 13:50 Levofloxacin 750 Mg Tablet PO 750 mg DAILY MANASA Administration Metronidazole 500 mg 11/09/23 22:00 11/13/23 13:50 Metronidazole 500 Mg Tablet PO 500 mg Q8HR MANASA Administration Morphine Sulfate 2 mg 11/04/23 17:09 11/09/23 21:23 Morphine Sulfate (*Crx) 2 Mg/Ml Inj IV PUSH 2 mg Q2H PRN Administration Pain Rated 7-10 Multi-Ingred Cream/Lotion/Oil/Oint 1 applic 11/05/23 09:00 11/13/23 10:13 Eucerin Cream 120 Gm Jar TOPICAL 1 applic DAILY MANASA Administration Neomycin/Polymyxin/Hydrocortisone 4 drop 11/04/23 20:45 11/13/23 14:01 Neomycin/Polymyxin/Hydrocort Ot Susp 10 Ml Btl (*Bkc) EACH EAR Not Given Q8HR MANASA Nystatin 5 ml 11/05/23 21:00 11/13/23 13:50 Nystatin 100,000 Units/Ml Susp 5 Ml Ora
[2023-11-13] MEDS: MORPHINE SULFATE (*CRX) 2 MG/ML INJ IV PUSH (21:21)
[2023-11-13 22:00] VITALS: BP 136/85; PULSE 77; RESP 20; TEMP 36.3; O2SAT 98
[2023-11-14 05:17] VITALS: BP 139/98; PULSE 68; RESP 20; TEMP 36.8; O2SAT 97
[2023-11-14] MEDS: metroNIDAZOLE 500 MG TABLET PO ×3 (05:22→22:02)
[2023-11-14 05:41] LABS: Basophils Percent Auto 0.3 % (0.2-1.2); Eosinophils Percent Auto 0.2 % (0-4.4); Hematocrit 30.8 % (37.0-47.0); Hemoglobin 9.8 g/dL (12.0-15.0); Immature Granulocyte Absolute 0.09 K/mm3 (0.00-0.031); Immature Granulocyte Percent A 0.8 % (0-0.5); Lymphocytes Absolute Auto 2.35 K/mm3 (0.9-3.2); Lymphocytes Percent Auto 21.6 % (18.3-44.2); Mean Corpuscular HGB Conc 31.8 g/dl (32-36); Mean Corpuscular Hemoglobin 30.4 pg (26-34); Mean Corpuscular Volume 95.7 fl (80-100); Mean Platelet Volume 9.8 fl (7.4-10.4); Monocytes Absolute Auto 0.9 K/mm3 (0.1-0.6); Monocytes Percent Auto 8.6 % (2.6-8.5); Neutrophils Absolute Auto 7.5 K/mm3 (1.3-6.7); Neutrophils Percent Auto 68.5 % (45.5-73.1); Platelet Count Result 410 k/mm3 (150-375); Red Blood Count 3.22 M/mm3 (4.2-5.4); Red Cell Distribution Width 15.9 % (11.5-14.5); White Blood Count 10.9 K/mm3 (4.5-10.0)
[2023-11-14] MEDS: ACETAMINOPHEN 325 MG TABLET 650 MG PO (05:49)
[2023-11-14 05:53] LABS: Alanine Aminotransferase 24 U/L (6-35); Albumin Level 3.4 g/dL (3.5-5.1); Alkaline Phosphatase 65 U/L (38-126); Anion Gap 7 mmol/L (4-12); Aspartate Amino Transferase 31 U/L (14-36); Bilirubin,Total 0.4 mg/dL (0.2-1.3); Blood Urea Nitrogen 7 mg/dL (7-17); Calcium 8.7 mg/dL (8.4-10.2); Carbon Dioxide 26 mmol/L (22-30); Chloride 106 mmol/L (98-107); Estimated CRCL calculation 58 ml/min; Estimated Glomerular Filt Rate > 60; Glucose 104 mg/dL (65-110); Magnesium 2.1 mg/dL (1.6-2.3); Potassium 4.2 mmol/L (3.4-5.0); Sodium 139 mmol/L (137-145)
[2023-11-14] MEDS: NYSTATIN 100,000 UNITS/ML SUSP 5 ML ORAL.SUSP PO ×4 (08:27→22:02)
[2023-11-14] MEDS: levoFLOXacin 750 MG TABLET PO (08:27)
[2023-11-14] MEDS: GABAPENTIN 300 MG CAPSULE PO ×3 (08:28→17:36)
[2023-11-14] MEDS: ENOXAPARIN 40 MG/0.4 ML SYRINGE SUB-Q (08:28)
[2023-11-14] MEDS: SACCHAROMYCES BOULARDII 250 MG CAPSULE PO ×2 (08:28→17:36)
[2023-11-14] MEDS: PANTOPRAZOLE 40 MG TABLET PO (08:28)
--- NOTE | 2023-11-14 10:11 | P.PNIM_ITS ---
Progress Note: A&P Assessment and Plan (1) Sepsis: Code(s): A41.9 - Sepsis, unspecified organism Status: Acute Assessment and Plan: - meets SIRS criteria: HR, WBC. No hypotension or hypoxia. - lactic acid: 1.0 - 30 mL/kg = 2300. given 1L bolus of NS, adding 1L bolus of LR -> 125 mL/hr of NS. - suspected source: diverticulitis, perisigmoid abscess - started on Zosyn and Flagyl on 11/03 - blood cultures drawn on 11/03 - UA: specific gravity 1.039, otherwise unremarkable 11/04: * WBC downtrending. 25-->19.1 * afebrile overnight * Blood pressures stable * Continue Zosyn and Flagyl per surgery * blood cultures pending 11/05: * Leukocytosis still resolving. White count 12.9 today * Afebrile overnight * Preliminary read on blood cultures with no growth 11/06: * WBC increased to 12.9-->15.9 * afebrile, remainder of VSS * Culture from abscess is growing streptococcus anginosus. On Zosyn. * May need repeat CT abdomen and pelvis if WBC continues to rise 11/07: * WBC 12.9-->--15.9-->18.5 * Afebrile * Continue Zosyn and Flagyl * Ordered CT abdomen/pelvis shows 6.7 x 6.2 x 3.3 cm perisigmoid abscess * NPO at [place] for drain placement 11/08 * Also ordered stool sample to r/o c-diff as she has been having frequent bowel movements 11/08: * WBC 12.9-->15.9-->18.5-->15.6 * afebrile * NPO for drain placement * C-diff negative 11/09: * WBC 12.9-->15.9-->18.5-->15.6-->12.7 * afebrile * IR drain with purulent drainage * Clinically continues to improve. Unsure if patient will d/c with drain in place or if she will remain inpatient until drain can be removed. * Plan to continue IV antibiotics. Culture growing bacteroides fragilis and streptococcus anginosus. Currently on zosyn and PO flagyl. Anticipate de- escalating to Rocehpin or even PO Augmentin. Antibiotics per surgery. 11/10: White blood cell count 11.1 Antibiotics per surgery 11/11: White blood cell count continued to trend down. 11/12: White blood cell count 10, Wound culture shows resistance to Zosyn. 11/13: WBC 10.9, tolerating oral antibiotics, no fever or chills (2) Sigmoid diverticulitis: Code(s): K57.32 - Diverticulitis of large intestine without perforation or abscess without bleeding Status: Deleted Assessment and Plan: - CT abd/pelvis: Sigmoid diverticulitis with perisigmoid abscess. 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 - started on Zosyn and Flagyl on 11/03 - WBC 25 - IV fluids and monitor I&Os - trend labs 11/04: * surgery consult, rec's appreciated * NPO for possible intervention * Zosyn, Flagyl, and IVF * morphine prn for pain, Zofran prn for nausea 11/05: * IR drain was placed yesterday. Drain was displaced when patient got up to go to the restroom. * CT abdomen pelvis shows drain no longer in abscess * Patient made NPO for possible drain replacement today * Decreased IV fluids to 100 ml/hr 11/06: * IVF D/c'd * regular diet * having loose stools--add probiotic 11/07: * c-diff ordered 11/08: * C-diff negative * Florastor BID 11/09: * stools are more formed and less frequent 11/11: Drain remains in place with pus drainage 11/12: Upsize drain and change antibiotics 11/13: Patient doing Well after Drain change yesterday. (3) Absc
--- NOTE | 2023-11-14 10:11 | PM.IMPN ---
Progress Note: A&P Assessment and Plan (1) Sepsis: Code(s): A41.9 - Sepsis, unspecified organism Status: Acute Assessment and Plan: - meets SIRS criteria: HR, WBC. No hypotension or hypoxia. - lactic acid: 1.0 - 30 mL/kg = 2300. given 1L bolus of NS, adding 1L bolus of LR -> 125 mL/hr of NS. - suspected source: diverticulitis, perisigmoid abscess - started on Zosyn and Flagyl on 11/03 - blood cultures drawn on 11/03 - UA: specific gravity 1.039, otherwise unremarkable 11/04: WBC downtrending. 25-->19.1 afebrile overnight Blood pressures stable Continue Zosyn and Flagyl per surgery blood cultures pending 11/05: Leukocytosis still resolving. White count 12.9 today Afebrile overnight Preliminary read on blood cultures with no growth 11/06: WBC increased to 12.9-->15.9 afebrile, remainder of VSS Culture from abscess is growing streptococcus anginosus. On Zosyn. May need repeat CT abdomen and pelvis if WBC continues to rise 11/07: WBC 12.9-->--15.9-->18.5 Afebrile Continue Zosyn and Flagyl Ordered CT abdomen/pelvis shows 6.7 x 6.2 x 3.3 cm perisigmoid abscess NPO at [place] for drain placement 11/08 Also ordered stool sample to r/o c-diff as she has been having frequent bowel movements 11/08: WBC 12.9-->15.9-->18.5-->15.6 afebrile NPO for drain placement C-diff negative 11/09: WBC 12.9-->15.9-->18.5-->15.6-->12.7 afebrile IR drain with purulent drainage Clinically continues to improve. Unsure if patient will d/c with drain in place or if she will remain inpatient until drain can be removed. Plan to continue IV antibiotics. Culture growing bacteroides fragilis and streptococcus anginosus. Currently on zosyn and PO flagyl. Anticipate de-escalating to Rocehpin or even PO Augmentin. Antibiotics per surgery. 11/10: White blood cell count 11.1 Antibiotics per surgery 11/11: White blood cell count continued to trend down. 11/12: White blood cell count 10, Wound culture shows resistance to Zosyn. 11/13: WBC 10.9, tolerating oral antibiotics, no fever or chills (2) Sigmoid diverticulitis: Code(s): K57.32 - Diverticulitis of large intestine without perforation or abscess without bleeding Status: Deleted Assessment and Plan: - CT abd/pelvis: Sigmoid diverticulitis with perisigmoid abscess. 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 - started on Zosyn and Flagyl on 11/03 - WBC 25 - IV fluids and monitor I&Os - trend labs 11/04: surgery consult, rec's appreciated NPO for possible intervention Zosyn, Flagyl, and IVF morphine prn for pain, Zofran prn for nausea 11/05: IR drain was placed yesterday. Drain was displaced when patient got up to go to the restroom. CT abdomen pelvis shows drain no longer in abscess Patient made NPO for possible drain replacement today Decreased IV fluids to 100 ml/hr 11/06: IVF D/c'd regular diet having loose stools--add probiotic 11/07: c-diff ordered 11/08: C-diff negative Florastor BID 11/09: stools are more formed and less frequent 11/11: Drain remains in place with pus drainage 11/12: Upsize drain and change antibiotics 11/13: Patient doing Well after Drain change yesterday. (3) Abscess of sigmoid colon due to diverticulitis: Code(s): K57.20 - Diverticulitis of large intestine with perforation and abscess without bleeding Status: Deleted Assessment and Plan: - CT abd/pelvis: sigmoid diverticulitis with perisigmoid abscess. 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 - General Surgery consulted, awaiting recs - NPO See plan 2 (4) Hypokalemia: Code(s): E87.6 - Hypokalemia Status: Acute Assessment and Plan: - K 2.6 - starting repletion with KCl 40 IVPB and one time dose of 40 mg PO - repeat bmp at 2200 - continue to trend/correct 11/04: K+ 3.3, phos 2.3 IVP
--- NOTE | 2023-11-14 10:48 | PM.PNGS ---
Progress Note: A&P Assessment and Plan (1) Diverticulitis of large intestine with abscess: Code(s): K57.20 - Diverticulitis of large intestine with perforation and abscess without bleeding Status: Acute Assessment and Plan: much improved, cont drain and abx, encourage OOB/IS, cont low fiber diet Subjective Subjective Date/Time Seen: 11/14/23 10:48 Interval history: feels much better today, pain/pressure largely resolved, good drainage from pelvic drain Review of Systems Review of Systems: All systems reviewed & are unremarkable except as noted in HPI and below Exam Const: General: cooperative, comfortable and no acute distress Resp: Auscultation: clear to auscultation bilaterally Cardio: Rate: regular rate Rhythm: regular rhythm GI: Inspection: normal to inspection and distended GI Palp: Yes abdominal tenderness, Yes Soft to palpation, Yes Tenderness to palpation present (GI), No Guarding due to palpation present (GI) and No Rigid due to palpation Objective Data Vital Signs Vital Signs: Vital Signs - 24 hr 11/13/23 13:45 11/13/23 22:00 11/14/23 05:17 Temperature 36.2 C L 36.3 C L 36.8 C Pulse Rate 82 77 68 Respiratory Rate 17 20 20 Blood Pressure 134/76 136/85 139/98 H Pulse Oximetry 100 98 97 Oxygen Delivery 11/14/23 08:00 Temperature Pulse Rate Respiratory Rate Blood Pressure Pulse Oximetry Oxygen Delivery Room Air Intake/Output Intake/Output: Intake & Output 11/11/23 11/12/23 11/13/23 11/14/23 23:59 23:59 23:59 23:59 Intake Total 1950 2420 1480 500 Output Total 600 650 Balance 1950 2420 880 -150 Meds/Results Medications: Active Medications Generic Name Dose Route Start Last Admin Trade Name Freq PRN Reason Stop Dose Admin Acetaminophen 650 mg 11/04/23 20:45 11/14/23 05:49 Acetaminophen 325 Mg Tablet PO 650 mg Q4H PRN Administration Mild Pain (1-3) or Fever Enoxaparin Sodium 40 mg 11/08/23 09:00 11/14/23 08:28 Enoxaparin 40 Mg/0.4 Ml Syringe SUB-Q 40 mg DAILY MANASA Administration Gabapentin 300 mg 11/05/23 17:20 11/14/23 08:28 Gabapentin 300 Mg Capsule PO 300 mg TID MANASA Administration Hydralazine HCl 10 mg 11/04/23 20:42 Hydralazine Hcl 20 Mg/Ml Vial IV PUSH Q8H PRN Blood Pressure - High Levofloxacin 750 mg 11/13/23 12:00 11/14/23 08:27 Levofloxacin 750 Mg Tablet PO 750 mg DAILY MANASA Administration Metronidazole 500 mg 11/09/23 22:00 11/14/23 05:22 Metronidazole 500 Mg Tablet PO 500 mg Q8HR MANASA Administration Morphine Sulfate 2 mg 11/04/23 17:09 11/13/23 21:21 Morphine Sulfate (*Crx) 2 Mg/Ml Inj IV PUSH 2 mg Q2H PRN Administration Pain Rated 7-10 Multi-Ingred Cream/Lotion/Oil/Oint 1 applic 11/05/23 09:00 11/14/23 08:36 Eucerin Cream 120 Gm Jar TOPICAL Not Given DAILY [facility] Nystatin 5 ml 11/05/23 21:00 11/14/23 08:27 Nystatin 100,000 Units/Ml Susp 5 Ml Oral.Susp PO 5 ml QID MANASA Administration Ondansetron HCl 4 mg 11/04/23 17:09 Ondansetron Inj 4 Mg/2 Ml Vial IV PUSH Q4H PRN Nausea Pantoprazole Sodium 40 mg 11/13/23 09:00 11/14/23 08:28 Pantoprazole 40 Mg Tablet PO 40 mg QAM MANASA Administration Saccharomyces Boulardii 250 mg 11/07/23 17:00 11/14/23 08:28 Saccharomyces Boulardii 250 Mg Capsule PO 250 mg BID MANASA Administration Radiology Results: ITS Impressions Pelvis CT 11/05/23 18:22 IMPRESSION: 1. Acute sigmoid diverticulitis with perisigmoid abscess with interval improvement. 2. Dislodged percutaneous drain, which is no longer in the abscess. Abdomen/Pelvis CT 11/13/23 11:50 IMPRESSION: 1. Acute sigmoid diverticulitis with 7.3 x 2.8 cm perisigmoid abscess with interval improvement with percutaneous drain in expected position. If drain output is low, consider CT-guided exchange for a larger drain. Catheter Placement CT 11/13/23 15:49 IMPRESSION: 1. Successful CT-g
[2023-11-14 14:00] VITALS: BP 123/68; PULSE 73; RESP 18; TEMP 36.9; O2SAT 100
[2023-11-14 21:43] VITALS: BP 133/88; PULSE 76; RESP 21; TEMP 36.9; O2SAT 100
[2023-11-15] MEDS: ACETAMINOPHEN 325 MG TABLET 650 MG PO (02:39)
[2023-11-15 06:00] VITALS: BP 136/72; PULSE 72; RESP 21; TEMP 36.1; O2SAT 100
[2023-11-15] MEDS: metroNIDAZOLE 500 MG TABLET PO ×3 (06:48→21:02)
--- NOTE | 2023-11-15 07:22 | PM.IMPN ---
Progress Note: A&P Assessment and Plan (1) Sepsis: Code(s): A41.9 - Sepsis, unspecified organism Status: Resolved Assessment and Plan: - meets SIRS criteria: HR, WBC. No hypotension or hypoxia. - lactic acid: 1.0 - 30 mL/kg = 2300. given 1L bolus of NS, adding 1L bolus of LR -> 125 mL/hr of NS. - source: diverticulitis, perisigmoid abscess - started on Zosyn and Flagyl on 11/03 - blood cultures drawn on 11/03 and were negative - UA: specific gravity 1.039, otherwise unremarkable - white blood cell count within normal limits. Resolved (2) Abscess of sigmoid colon due to diverticulitis: Code(s): K57.20 - Diverticulitis of large intestine with perforation and abscess without bleeding Status: Deleted Assessment and Plan: - CT abd/pelvis: sigmoid diverticulitis with perisigmoid abscess. 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 - General Surgery consulted placed perc drain on 11/04. Drain was displaced when patient got up to go to the restroom and was repositioned on 11/05. - Culture from abscess is growing streptococcus anginosus, bacteroides fragilis, prevotella, and E. coli. - Discussed with ID pharm and recommended Levaquin and Flagyl to cover all 4 bacteria. - Started on Zosyn and Flagyl on 11/03, E. coli resistant to Zosyn, antibiotics changed on 11/12 to Levaquin and Flagyl - General surgery and Radiology discussed and patient is perc drain was upsized on 11/13/2023 due to interval improvement condition. - She wants to try anything at this point to avoid surgery. - Per general surgery if upsizing drain does not work to resolve the abscess then surgery will with then be necessary, sigmoid colon resection and at least temporary end colostomy would likely be needed.? - WBC down trending to normal - Diet advanced to low fiber - repeat CT scan tomorrow (3) Sigmoid diverticulitis: Code(s): K57.32 - Diverticulitis of large intestine without perforation or abscess without bleeding Status: Deleted Assessment and Plan: - CT abd/pelvis: Sigmoid diverticulitis with perisigmoid abscess. 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 - Started on Zosyn and Flagyl on 11/03, E. coli resistant to Zosyn, antibiotics changed on 11/12 to Levaquin and Flagyl - White blood cell count now within normal limits. - C-diff negative - Surgery consulted and placed perc drain on 11/04. Drain was displaced when patient got up to go to the restroom and was repositioned on 11/05. - IV fluids discontinued on 11/06 - Patient diet advanced after drain placed, now on low-fiber diet. - The perc drain continues to drain (4) Hypokalemia: Code(s): E87.6 - Hypokalemia Status: Resolved Assessment and Plan: - Hypokalemia on presentation - Replaced as necessary. - Has since resolved. (5) Hypertension: Code(s): I10 - Essential (primary) hypertension Status: Chronic Assessment and Plan: - Blood pressures reviewed and are stable. - Continue to hold home agents in setting of sepsis. (6) History of shingles: Code(s): Z86.19 - Personal history of other infectious and parasitic diseases Status: Acute Assessment and Plan: -recently was seen in [place] ED in August with a vesicular rash to her face with associated pain. She was given Valtrex and completed treatment per her reports. 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 -can add gabapentin 300 mg TID for pain -11/14 Patient has been on gabapentin 300 mg t.i.d. for 10 days for post herpetic neuralgia, will start to taper dosing (7) Thrush: Code(s): B37.0 - Candidal stomatitis Status: Acute Assessment and Plan: -patient complaining of a sore throat -oral exam concerning for thrush -Added oral nystatin swish and swallow -tongue with white plaque - 11/05: pain is improving with nystatin swish
[2023-11-15] MEDS: SACCHAROMYCES BOULARDII 250 MG CAPSULE PO ×2 (08:18→17:37)
[2023-11-15] MEDS: levoFLOXacin 750 MG TABLET PO (08:18)
[2023-11-15] MEDS: NYSTATIN 100,000 UNITS/ML SUSP 5 ML ORAL.SUSP PO ×3 (08:18→17:37)
[2023-11-15] MEDS: PANTOPRAZOLE 40 MG TABLET PO (08:18)
[2023-11-15] MEDS: ENOXAPARIN 40 MG/0.4 ML SYRINGE SUB-Q (08:18)
[2023-11-15] MEDS: GABAPENTIN 300 MG CAPSULE PO (08:18)
--- NOTE | 2023-11-15 09:44 | PM.PNGS ---
Progress Note: A&P Assessment and Plan (1) Diverticulitis of large intestine with abscess: Code(s): K57.20 - Diverticulitis of large intestine with perforation and abscess without bleeding Status: Acute Assessment and Plan: exam benign, [place]per low fiber diet, cont abx and drain, repeat CT tomorrow to assess Subjective Subjective Date/Time Seen: 11/15/23 09:44 Interval history: feels pretty good, casper low fiber diet, +bowel fxn, pain better Review of Systems Review of Systems: All systems reviewed & are unremarkable except as noted in HPI and below Exam Const: General: cooperative, comfortable and no acute distress Resp: Auscultation: clear to auscultation bilaterally Cardio: Rate: regular rate Rhythm: regular rhythm GI: Inspection: normal to inspection and distended GI Palp: No abdominal tenderness, Yes Soft to palpation, No Tenderness to palpation present (GI), No Guarding due to palpation present (GI) and No Rigid due to palpation Objective Data Vital Signs Vital Signs: Vital Signs - 24 hr 11/14/23 14:00 11/14/23 21:43 11/15/23 06:00 Temperature 36.9 C 36.9 C 36.1 C L Pulse Rate 73 76 72 Respiratory Rate 18 21 H 21 H Blood Pressure 123/68 133/88 136/72 Pulse Oximetry 100 100 100 Intake/Output Intake/Output: Intake & Output 11/12/23 11/13/23 11/14/23 11/15/23 23:59 23:59 23:59 23:59 Intake Total 2420 1480 740 700 Output Total 600 1570 1000 Balance 2420 880 -830 -300 Meds/Results Medications: Active Medications Generic Name Dose Route Start Last Admin Trade Name Freq PRN Reason Stop Dose Admin Acetaminophen 650 mg 11/04/23 20:45 11/15/23 02:39 Acetaminophen 325 Mg Tablet PO 650 mg Q4H PRN Administration Mild Pain (1-3) or Fever Enoxaparin Sodium 40 mg 11/08/23 09:00 11/15/23 08:18 Enoxaparin 40 Mg/0.4 Ml Syringe SUB-Q 40 mg DAILY MANASA Administration Gabapentin 300 mg 11/15/23 09:00 11/15/23 08:18 Gabapentin 300 Mg Capsule PO 300 mg DAILY MANASA Administration Hydralazine HCl 10 mg 11/04/23 20:42 Hydralazine Hcl 20 Mg/Ml Vial IV PUSH Q8H PRN Blood Pressure - High Levofloxacin 750 mg 11/13/23 12:00 11/15/23 08:18 Levofloxacin 750 Mg Tablet PO 750 mg DAILY MANASA Administration Metronidazole 500 mg 11/09/23 22:00 11/15/23 06:48 Metronidazole 500 Mg Tablet PO 500 mg Q8HR MANASA Administration Multi-Ingred Cream/Lotion/Oil/Oint 1 applic 11/05/23 09:00 11/15/23 08:18 Eucerin Cream 120 Gm Jar TOPICAL Not Given DAILY MANASA Nystatin 5 ml 11/05/23 21:00 11/15/23 08:18 Nystatin 100,000 Units/Ml Susp 5 Ml Oral.Susp PO 5 ml QID MANASA Administration Ondansetron HCl 4 mg 11/04/23 17:09 Ondansetron Inj 4 Mg/2 Ml Vial IV PUSH Q4H PRN Nausea Pantoprazole Sodium 40 mg 11/13/23 09:00 11/15/23 08:18 Pantoprazole 40 Mg Tablet PO 40 mg QAM MANASA Administration Saccharomyces Boulardii 250 mg 11/07/23 17:00 11/15/23 08:18 Saccharomyces Boulardii 250 Mg Capsule PO 250 mg BID MANASA Administration Radiology Results: ITS Impressions Pelvis CT 11/05/23 18:22 IMPRESSION: 1. Acute sigmoid diverticulitis with perisigmoid abscess with interval improvement. 2. Dislodged percutaneous drain, which is no longer in the abscess. Abdomen/Pelvis CT 11/13/23 11:50 IMPRESSION: 1. Acute sigmoid diverticulitis with 7.3 x 2.8 cm perisigmoid abscess with interval improvement with percutaneous drain in expected position. If drain output is low, consider CT-guided exchange for a larger drain. Catheter Placement CT 11/13/23 15:49 IMPRESSION: 1. Successful CT-guided perisigmoid abscess drain exchange.
[2023-11-15 14:00] VITALS: BP 130/75; PULSE 77; RESP 18; TEMP 37.3; O2SAT 99
[2023-11-15 19:54] VITALS: PULSE 77; RESP 18; O2SAT 99
[2023-11-15 20:54] VITALS: BP 141/85; PULSE 88; RESP 17; TEMP 36.5; O2SAT 100
[2023-11-16 04:44] VITALS: BP 135/81; PULSE 79; RESP 17; TEMP 36.6; O2SAT 99
[2023-11-16] MEDS: metroNIDAZOLE 500 MG TABLET PO ×3 (05:48→21:06)
[2023-11-16 06:12] LABS: Basophils Percent Auto 0.3 % (0.2-1.2); Eosinophils Percent Auto 0.1 % (0-4.4); Hematocrit 32.2 % (37.0-47.0); Hemoglobin 10.3 g/dL (12.0-15.0); Immature Granulocyte Absolute 0.07 K/mm3 (0.00-0.031); Immature Granulocyte Percent A 0.5 % (0-0.5); Lymphocytes Absolute Auto 1.84 K/mm3 (0.9-3.2); Lymphocytes Percent Auto 13.6 % (18.3-44.2); Mean Corpuscular Hemoglobin 30.6 pg (26-34); Mean Corpuscular Volume 95.5 fl (80-100); Mean Platelet Volume 9.3 fl (7.4-10.4); Monocytes Absolute Auto 0.8 K/mm3 (0.1-0.6); Monocytes Percent Auto 6.2 % (2.6-8.5); Neutrophils Absolute Auto 10.8 K/mm3 (1.3-6.7); Neutrophils Percent Auto 79.3 % (45.5-73.1); Platelet Count Result 475 k/mm3 (150-375); Red Blood Count 3.37 M/mm3 (4.2-5.4); Red Cell Distribution Width 16.4 % (11.5-14.5); White Blood Count 13.6 K/mm3 (4.5-10.0)
[2023-11-16 06:35] LABS: Alanine Aminotransferase 20 U/L (6-35); Albumin Level 3.6 g/dL (3.5-5.1); Alkaline Phosphatase 65 U/L (38-126); Anion Gap 6 mmol/L (4-12); Aspartate Amino Transferase 30 U/L (14-36); Bilirubin,Total 0.5 mg/dL (0.2-1.3); Blood Urea Nitrogen 8 mg/dL (7-17); Carbon Dioxide 25 mmol/L (22-30); Chloride 107 mmol/L (98-107); Estimated CRCL calculation 58 ml/min; Estimated Glomerular Filt Rate > 60; Glucose 109 mg/dL (65-110); Magnesium 2.2 mg/dL (1.6-2.3); Potassium 4.1 mmol/L (3.4-5.0); Sodium 138 mmol/L (137-145)
[2023-11-16] MEDS: levoFLOXacin 750 MG TABLET PO (08:07)
[2023-11-16] MEDS: SACCHAROMYCES BOULARDII 250 MG CAPSULE PO ×2 (08:07→16:26)
[2023-11-16] MEDS: PANTOPRAZOLE 40 MG TABLET PO (08:07)
[2023-11-16] MEDS: ENOXAPARIN 40 MG/0.4 ML SYRINGE SUB-Q (08:08)
[2023-11-16] MEDS: GABAPENTIN 300 MG CAPSULE PO (08:08)
[2023-11-16] MEDS: EUCERIN CREAM 120 GM JAR 1 APPLIC TOPICAL (08:08)
[2023-11-16 08:09] VITALS: RESP 17; O2SAT 99
--- NOTE | 2023-11-16 10:16 | PM.PNGS ---
Progress Note: A&P Assessment and Plan (1) Diverticulitis of large intestine with abscess: Code(s): K57.20 - Diverticulitis of large intestine with perforation and abscess without bleeding Status: Acute Assessment and Plan: exam benign, cont drain and abx, CT reviewed and abscess largely unchanged, cont current mgmt for now c serial exams/labs Subjective Subjective Date/Time Seen: 11/16/23 10:16 Interval history: feels good, no abd pain, casper low fiber diet Review of Systems Review of Systems: All systems reviewed & are unremarkable except as noted in HPI and below Exam Const: General: cooperative, comfortable and no acute distress Resp: Auscultation: clear to auscultation bilaterally Cardio: Rate: regular rate Rhythm: regular rhythm GI: Inspection: normal to inspection and distended GI Palp: No abdominal tenderness, Yes Soft to palpation, No Tenderness to palpation present (GI), No Guarding due to palpation present (GI) and No Rigid due to palpation Other: drain c mod purulent drainage Objective Data Vital Signs Vital Signs: Vital Signs - 24 hr 11/15/23 14:00 11/15/23 19:54 11/15/23 20:54 Temperature 37.3 C 36.5 C Pulse Rate 77 77 88 Respiratory Rate 18 18 17 Blood Pressure 130/75 141/85 H Pulse Oximetry 99 99 100 Oxygen Delivery Room Air Fraction of Inspired Oxygen 21 11/16/23 04:44 11/16/23 08:09 Temperature 36.6 C Pulse Rate 79 Respiratory Rate 17 17 Blood Pressure 135/81 Pulse Oximetry 99 99 Oxygen Delivery Room Air Fraction of Inspired Oxygen 21 Intake/Output Intake/Output: Intake & Output 11/13/23 11/14/23 11/15/23 11/16/23 23:59 23:59 23:59 23:59 Intake Total 1480 740 940 Output Total 600 1570 1365 520 Balance 880 -830 -425 -520 Meds/Results Medications: Active Medications Generic Name Dose Route Start Last Admin Trade Name Freq PRN Reason Stop Dose Admin Acetaminophen 650 mg 11/04/23 20:45 11/15/23 02:39 Acetaminophen 325 Mg Tablet PO 650 mg Q4H PRN Administration Mild Pain (1-3) or Fever Enoxaparin Sodium 40 mg 11/08/23 09:00 11/16/23 08:08 Enoxaparin 40 Mg/0.4 Ml Syringe SUB-Q 40 mg DAILY MANASA Administration Gabapentin 300 mg 11/15/23 09:00 11/16/23 08:08 Gabapentin 300 Mg Capsule PO 300 mg DAILY MANASA Administration Hydralazine HCl 10 mg 11/04/23 20:42 Hydralazine Hcl 20 Mg/Ml Vial IV PUSH Q8H PRN Blood Pressure - High Levofloxacin 750 mg 11/13/23 12:00 11/16/23 08:07 Levofloxacin 750 Mg Tablet PO 750 mg DAILY MANASA Administration Metronidazole 500 mg 11/09/23 22:00 11/16/23 05:48 Metronidazole 500 Mg Tablet PO 500 mg Q8HR MANASA Administration Multi-Ingred Cream/Lotion/Oil/Oint 1 applic 11/05/23 09:00 11/16/23 08:08 Eucerin Cream 120 Gm Jar TOPICAL 1 applic DAILY MANASA Administration Ondansetron HCl 4 mg 11/04/23 17:09 Ondansetron Inj 4 Mg/2 Ml Vial IV PUSH Q4H PRN Nausea Pantoprazole Sodium 40 mg 11/13/23 09:00 11/16/23 08:07 Pantoprazole 40 Mg Tablet PO 40 mg QAM MANASA Administration Saccharomyces Boulardii 250 mg 11/07/23 17:00 11/16/23 08:07 Saccharomyces Boulardii 250 Mg Capsule PO 250 mg BID MANASA Administration Radiology Results: ITS Impressions Pelvis CT 11/05/23 18:22 IMPRESSION: 1. Acute sigmoid diverticulitis with perisigmoid abscess with interval improvement. 2. Dislodged percutaneous drain, which is no longer in the abscess. Catheter Placement CT 11/13/23 15:49 IMPRESSION: 1. Successful CT-guided perisigmoid abscess drain exchange. Abdomen/Pelvis CT 11/16/23 09:55 IMPRESSION: 1. Acute sigmoid diverticulitis. 2. Stable 6.9 x 3.0 cm perisigmoid abscess with percutaneous drain in expected position. Labs Labs: Laboratory Results - last 24 hr 11/16/23 05:38 WBC 13.6 H RBC 3.37 L Hgb 10.3 L Hct 32.2 L MCV 95.5 MCH 30.6 MCHC 32.0 RDW 16.4
--- NOTE | 2023-11-16 12:41 | PM.IMPN ---
Progress Note: A&P Assessment and Plan (1) Abscess of sigmoid colon due to diverticulitis: Code(s): K57.20 - Diverticulitis of large intestine with perforation and abscess without bleeding Status: Deleted Assessment and Plan: - CT abd/pelvis: sigmoid diverticulitis with perisigmoid abscess. 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 - General Surgery consulted placed perc drain on 11/04. Drain was displaced when patient got up to go to the restroom and was repositioned on 11/05. - Culture from abscess is growing streptococcus anginosus, bacteroides fragilis, prevotella, and E. coli. - Discussed with ID pharm and recommended Levaquin and Flagyl to cover all 4 bacteria. - Started on Zosyn and Flagyl on 11/03, E. coli resistant to Zosyn, antibiotics changed on 11/12 to Levaquin and Flagyl - General surgery and Radiology discussed and patient is perc drain was upsized on 11/13/2023 due to interval improvement condition. - She wants to try anything at this point to avoid surgery. - Per general surgery if upsizing drain does not work to resolve the abscess then surgery will with then be necessary, sigmoid colon resection and at least temporary end colostomy would likely be needed.? - Diet advanced to low fiber - 11/[address] scan revealing abscess is essentially unchanged and drains are in the appropriate position. Waiting for surgery recommendations. (2) Sigmoid diverticulitis: Code(s): K57.32 - Diverticulitis of large intestine without perforation or abscess without bleeding Status: Deleted Assessment and Plan: - CT abd/pelvis: Sigmoid diverticulitis with perisigmoid abscess. 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 - Started on Zosyn and Flagyl on 11/03, E. coli resistant to Zosyn, antibiotics changed on 11/12 to Levaquin and Flagyl - White blood cell count now within normal limits. - C-diff negative - Surgery consulted and placed perc drain on 11/04. Drain was displaced when patient got up to go to the restroom and was repositioned on 11/05. - IV fluids discontinued on 11/06 - General surgery and Radiology discussed and patient is perc drain was upsized on 11/13/2023 due to interval improvement condition. - Patient diet advanced after drain placed, now on low-fiber diet. - The Perc drain continues to drain (3) Sepsis: Code(s): A41.9 - Sepsis, unspecified organism Status: Resolved Assessment and Plan: - meets SIRS criteria: HR, WBC. No hypotension or hypoxia. - lactic acid: 1.0 - 30 mL/kg = 2300. given 1L bolus of NS, adding 1L bolus of LR -> 125 mL/hr of NS. - source: diverticulitis, perisigmoid abscess - started on Zosyn and Flagyl on 11/03 - blood cultures drawn on 11/03 and were negative - UA: specific gravity 1.039, otherwise unremarkable - white blood cell count within normal limits. Resolved (4) Hypokalemia: Code(s): E87.6 - Hypokalemia Status: Resolved Assessment and Plan: - Hypokalemia on presentation - Replaced as necessary. - Has since resolved. (5) Hypertension: Code(s): I10 - Essential (primary) hypertension Status: Chronic Assessment and Plan: - Blood pressures reviewed and are stable. - Continue to hold home agents in setting of sepsis. (6) History of shingles: Code(s): Z86.19 - Personal history of other infectious and parasitic diseases Status: Acute Assessment and Plan: -recently was seen in [place] ED in August with a vesicular rash to her face with associated pain. She was given Valtrex and completed treatment per her reports. 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 -can add gabapentin 300 mg TID for pain -11/14 Patient has been on gabapentin 300 mg t.i.d. for 10 days for post herpetic neuralgia, will start to taper dosing (7) Thrush: Code(s): B37.0 - Candidal stomatitis Status:
[2023-11-16 14:00] VITALS: BP 124/70; PULSE 97; RESP 18; TEMP 37.1; O2SAT 98
[2023-11-16 19:43] VITALS: BP 111/62; PULSE 94; RESP 20; TEMP 37.4; O2SAT 97
[2023-11-17 04:45] VITALS: BP 127/75; PULSE 80; RESP 20; TEMP 36.9; O2SAT 100
[2023-11-17] MEDS: metroNIDAZOLE 500 MG TABLET PO ×3 (05:57→21:13)
[2023-11-17 05:59] LABS: Hematocrit 31.1 % (37.0-47.0); Mean Corpuscular HGB Conc 32.2 g/dl (32-36); Mean Corpuscular Hemoglobin 30.6 pg (26-34); Mean Corpuscular Volume 95.1 fl (80-100); Mean Platelet Volume 9.2 fl (7.4-10.4); Platelet Count Result 453 k/mm3 (150-375); Red Blood Count 3.27 M/mm3 (4.2-5.4); Red Cell Distribution Width 16.3 % (11.5-14.5); White Blood Count 13.1 K/mm3 (4.5-10.0)
[2023-11-17 06:11] LABS: Anion Gap 6 mmol/L (4-12); Blood Urea Nitrogen 9 mg/dL (7-17); Carbon Dioxide 25 mmol/L (22-30); Chloride 106 mmol/L (98-107); Estimated CRCL calculation 58 ml/min; Estimated Glomerular Filt Rate > 60; Glucose 121 mg/dL (65-110); Potassium 4.2 mmol/L (3.4-5.0); Sodium 137 mmol/L (137-145)
--- NOTE | 2023-11-17 08:55 | PCNWS ---
Weekly nutritional screen. Patient is tolerating current diet with adequate intake. No weight loss reported. No nutritional needs at this time.
[2023-11-17] MEDS: ENOXAPARIN 40 MG/0.4 ML SYRINGE SUB-Q (09:16)
[2023-11-17] MEDS: GABAPENTIN 100 MG CAPSULE 200 MG PO (09:16)
[2023-11-17] MEDS: EUCERIN CREAM 120 GM JAR 1 APPLIC TOPICAL (09:17)
[2023-11-17] MEDS: levoFLOXacin 750 MG TABLET PO (09:17)
[2023-11-17] MEDS: PANTOPRAZOLE 40 MG TABLET PO (09:17)
[2023-11-17] MEDS: SACCHAROMYCES BOULARDII 250 MG CAPSULE PO ×2 (09:17→16:40)
[2023-11-17] MEDS: ACETAMINOPHEN 325 MG TABLET 650 MG PO (09:24)
[2023-11-17 09:25] VITALS: RESP 20; O2SAT 100
--- NOTE | 2023-11-17 12:38 | WPDPN ---
Progress Note: A&P Assessment and Plan (1) Diverticulitis of large intestine with abscess: Code(s): K57.20 - Diverticulitis of large intestine with perforation and abscess without bleeding Status: Acute Assessment and Plan: Clinically the patient seems to be doing well. She is having regular bowel function. Tolerating diet. No real left lower quadrant pain now. CT scan yesterday shows residual abscess with the drain in proper position. She would like to avoid a Mylene's procedure. I think she is a reliable patient will come back to the hospital for pain was getting worse or she spiked a fever. We will go ahead removed a transgluteal drain today and keep her on oral antibiotics for at least the next 2 weeks. All see her back in a office next week. If she deteriorates clinically at home has worsening pain or spikes a fever then instructed to come back to the emergency room she will have to be readmitted and Mylene's procedure with sigmoid resection, drainage of any pelvic abscess, and placement of a at least a temporary and colostomy would have to be done. She understands and agrees to this plan. Subjective Date/time seen: 11/17/23 12:38 Interval history: Patient is sitting up in chair and eating lunch. Have bowel movements which are formed. No fever. No nausea or vomiting. White blood count is been stable around 13,000 for the past [address] scan abdomen pelvis yesterday showed residual abscess in the pelvis which is improved but not completely resolved. Transgluteal drain in place with minimal output. She remains on Levaquin and Flagyl orally. Exam GI: Other: Abdomen is soft and nondistended. Minimal tenderness of palpation left lower quadrant. Transgluteal drain in place. Minimal output. Objective Data Vital Signs Vital Signs: Vital Signs - 24 hr 11/16/23 14:00 11/16/23 19:33 11/16/23 19:43 Temperature 37.1 C 37.4 C Pulse Rate 97 94 Respiratory Rate 18 20 Blood Pressure 124/70 111/62 Pulse Oximetry 98 97 Oxygen Delivery Room Air 11/17/23 04:45 11/17/23 09:25 Temperature 36.9 C Pulse Rate 80 Respiratory Rate 20 20 Blood Pressure 127/75 Pulse Oximetry 100 100 Oxygen Delivery Room Air Intake/Output Intake/Output: Intake & Output 11/14/23 11/15/23 11/16/23 11/17/23 23:59 23:59 23:59 23:59 Intake Total 440 647 9490 500 Output Total 0552 4497 0827 100 [facility]830 -425 -190 -230 Meds/Results Medications: Active Medications Generic Name Dose Route Start Last Admin Trade Name Freq PRN Reason Stop Dose Admin Acetaminophen 650 mg 11/04/23 20:45 11/17/23 09:24 Acetaminophen 325 Mg Tablet PO 650 mg Q4H PRN Administration Mild Pain (1-3) or Fever Enoxaparin Sodium 40 mg 11/08/23 09:00 11/17/23 09:16 Enoxaparin 40 Mg/0.4 Ml Syringe SUB-Q 40 mg DAILY MANASA Administration Gabapentin 200 mg 11/17/23 09:00 11/17/23 09:16 Gabapentin 100 Mg Capsule PO 200 mg DAILY MANASA Administration Hydralazine HCl 10 mg 11/04/23 20:42 Hydralazine Hcl 20 Mg/Ml Vial IV PUSH Q8H PRN Blood Pressure - High Levofloxacin 750 mg 11/13/23 12:00 11/17/23 09:17 Levofloxacin 750 Mg Tablet PO 750 mg DAILY MANASA Administration Metronidazole 500 mg 11/09/23 22:00 11/17/23 05:57 Metronidazole 500 Mg Tablet PO 500 mg Q8HR MANASA Administration Multi-Ingred Cream/Lotion/Oil/Oint 1 applic 11/05/23 09:00 11/17/23 09:17 Eucerin Cream 120 Gm Jar TOPICAL 1 applic DAILY MANASA Administration Ondansetron HCl 4 mg 11/04/23 17:09 Ondansetron Inj 4 Mg/2 Ml Vial IV PUSH Q4H PRN Nausea Pantoprazole Sodium 40 mg 11/13/23 09:00 11/17/23 09:17 Pantoprazole 40 Mg Tablet PO 40 mg QAM MANASA Administration Saccharomyces Boulardii 250 mg 11/07/23 17:00 11/17/23 09:17 Saccharomyces Boulardii 250 Mg Capsule PO 250 mg BID MANASA Administration Radiology Results: ITS Impressions Pelvis C
[2023-11-17] MEDS: diphenhydrAMINE HCl CAP 25 MG CAPSULE PO (13:09)
[2023-11-17 14:00] VITALS: BP 131/78; PULSE 93; RESP 18; TEMP 36.4; O2SAT 99
--- NOTE | 2023-11-17 14:33 | P.PNIM_ITS ---
Progress Note: A&P Assessment and Plan (1) Abscess of sigmoid colon due to diverticulitis: Code(s): K57.20 - Diverticulitis of large intestine with perforation and abscess without bleeding Status: Deleted Assessment and Plan: - CT abd/pelvis: sigmoid diverticulitis with perisigmoid abscess. 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 - General Surgery consulted placed perc drain on 11/04. Drain was displaced when patient got up to go to the restroom and was repositioned on 11/05. - Culture from abscess is growing streptococcus anginosus, bacteroides fragilis, prevotella, and E. coli. - Discussed with ID pharm and recommended Levaquin and Flagyl to cover all 4 bacteria. - Started on Zosyn and Flagyl on 11/03, E. coli resistant to Zosyn, antibiotics changed on 11/12 to Levaquin and Flagyl - General surgery and Radiology discussed and patient is perc drain was upsized on 11/13/2023 due to interval improvement condition. - She wants to try anything at this point to avoid surgery. - Per general surgery if upsizing drain does not work to resolve the abscess then surgery will with then be necessary, sigmoid colon resection and at least temporary end colostomy would likely be needed.? - Diet advanced to low fiber - 11/[address] scan revealing abscess is essentially unchanged and drains are in the appropriate position. - 11/16 Perc drain pulled (2) Sigmoid diverticulitis: Code(s): K57.32 - Diverticulitis of large intestine without perforation or abscess without bleeding Status: Deleted Assessment and Plan: - CT abd/pelvis: Sigmoid diverticulitis with perisigmoid abscess. 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 - Started on Zosyn and Flagyl on 11/03, E. coli resistant to Zosyn, antibiotics changed on 11/12 to Levaquin and Flagyl - White blood cell count now within normal limits. - C-diff negative - Surgery consulted and placed perc drain on 11/04. Drain was displaced when patient got up to go to the restroom and was repositioned on 11/05. - IV fluids discontinued on 11/06 - General surgery and Radiology discussed and patient is perc drain was upsized on 11/13/2023 due to interval improvement condition. - Patient diet advanced after drain placed, now on low-fiber diet. - The Perc drain continues to drain (3) Sepsis: Code(s): A41.9 - Sepsis, unspecified organism Status: Resolved Assessment and Plan: - meets SIRS criteria: HR, WBC. No hypotension or hypoxia. - lactic acid: 1.0 - 30 mL/kg = 2300. given 1L bolus of NS, adding 1L bolus of LR -> 125 mL/hr of NS. - source: diverticulitis, perisigmoid abscess - started on Zosyn and Flagyl on 11/03 - blood cultures drawn on 11/03 and were negative - UA: specific gravity 1.039, otherwise unremarkable - white blood cell count within normal limits. Resolved (4) Hypokalemia: Code(s): E87.6 - Hypokalemia Status: Resolved Assessment and Plan: - Hypokalemia on presentation - Replaced as necessary. - Has since resolved. (5) Hypertension: Code(s): I10 - Essential (primary) hypertension Status: Chronic Assessment and Plan: - Blood pressures reviewed and are stable. - Continue to hold home agents in setting of sepsis. (6) History of shingles: Code(s): Z86.19 - Personal history of other infectious and parasitic diseases Status: Acute Assessment and Plan: -recently was seen in [place] ED
[2023-11-17 19:44] VITALS: BP 127/73; PULSE 90; RESP 18; TEMP 36.6; O2SAT 100
[2023-11-18 04:35] VITALS: BP 125/72; PULSE 81; RESP 18; TEMP 36.5; O2SAT 100
[2023-11-18 05:16] LABS: Basophils Percent Auto 0.2 % (0.2-1.2); Eosinophils Percent Auto 0.2 % (0-4.4); Hematocrit 33.5 % (37.0-47.0); Hemoglobin 10.7 g/dL (12.0-15.0); Immature Granulocyte Absolute 0.07 K/mm3 (0.00-0.031); Immature Granulocyte Percent A 0.4 % (0-0.5); Lymphocytes Absolute Auto 2.34 K/mm3 (0.9-3.2); Lymphocytes Percent Auto 13.8 % (18.3-44.2); Mean Corpuscular HGB Conc 31.9 g/dl (32-36); Mean Corpuscular Hemoglobin 30.3 pg (26-34); Mean Corpuscular Volume 94.9 fl (80-100); Mean Platelet Volume 9.4 fl (7.4-10.4); Monocytes Absolute Auto 1.1 K/mm3 (0.1-0.6); Monocytes Percent Auto 6.5 % (2.6-8.5); Neutrophils Absolute Auto 13.4 K/mm3 (1.3-6.7); Neutrophils Percent Auto 78.9 % (45.5-73.1); Platelet Count Result 487 k/mm3 (150-375); Red Blood Count 3.53 M/mm3 (4.2-5.4); Red Cell Distribution Width 16.7 % (11.5-14.5)
[2023-11-18] MEDS: metroNIDAZOLE 500 MG TABLET PO ×3 (05:24→20:37)
[2023-11-18 05:33] LABS: Alanine Aminotransferase 17 U/L (6-35); Albumin Level 4.1 g/dL (3.5-5.1); Alkaline Phosphatase 76 U/L (38-126); Anion Gap 8 mmol/L (4-12); Aspartate Amino Transferase 22 U/L (14-36); Bilirubin,Total 0.7 mg/dL (0.2-1.3); Blood Urea Nitrogen 9 mg/dL (7-17); Calcium 9.3 mg/dL (8.4-10.2); Carbon Dioxide 22 mmol/L (22-30); Chloride 106 mmol/L (98-107); Estimated CRCL calculation 58 ml/min; Estimated Glomerular Filt Rate > 60; Glucose 129 mg/dL (65-110); Potassium 4.3 mmol/L (3.4-5.0); Sodium 136 mmol/L (137-145)
[2023-11-18] MEDS: ACETAMINOPHEN 325 MG TABLET 650 MG PO (05:48)
--- NOTE | 2023-11-18 08:33 | PM.IMPN ---
Progress Note: A&P Assessment and Plan (1) Sepsis: Code(s): A41.9 - Sepsis, unspecified organism Status: Resolved Assessment and Plan: - meets SIRS criteria: HR, WBC. No hypotension or hypoxia. - lactic acid: 1.0 - 30 mL/kg = 2300. given 1L bolus of NS, adding 1L bolus of LR -> 125 mL/hr of NS. - source: diverticulitis, perisigmoid abscess - started on Zosyn and Flagyl on 11/03 - blood cultures drawn on 11/03 and were negative - UA: specific gravity 1.039, otherwise unremarkable - white blood cell count within normal limits. Resolved (2) Abscess of sigmoid colon due to diverticulitis: Code(s): K57.20 - Diverticulitis of large intestine with perforation and abscess without bleeding Status: Deleted Assessment and Plan: Patient presented to the ED for abdominal pain. 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 - General Surgery consulted placed perc drain on 11/04. Drain was displaced when patient got up to go to the restroom and was repositioned on 11/05. - Abscess culture 11/04: streptococcus anginosus, bacteroides fragilis, prevotella, and E. coli. - Started on Zosyn and Flagyl on 11/03, E. coli resistant to Zosyn, antibiotics changed on 11/12 to Levaquin and Flagyl - Prior hospitalist discussed with ID pharm who recommended Levaquin and Flagyl to cover all 4 bacteria. - General surgery and Radiology discussed and patient is perc drain was upsized on 11/13/2023 due to interval improvement condition. - Per general surgery if upsizing drain does not work to resolve the abscess then surgery will then be necessary, sigmoid colon resection and at least temporary end colostomy would likely be needed.? - Diet advanced to low fiber - 11/[address] scan revealing abscess is essentially unchanged and drains are in the appropriate position. - 11/16 Perc drain pulled - WBC elevated on am labs. Will continue to monitor. Afebrile and VS WNL. (3) Sigmoid diverticulitis: Code(s): K57.32 - Diverticulitis of large intestine without perforation or abscess without bleeding Status: Deleted Assessment and Plan: CT abd/pelvis: Sigmoid diverticulitis with perisigmoid abscess. 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 - Started on Zosyn and Flagyl on 11/03, E. coli resistant to Zosyn, antibiotics changed on 11/12 to Levaquin and Flagyl - C-diff negative - Surgery consulted and placed perc drain on 11/04. Drain was displaced when patient got up to go to the restroom and was repositioned on 11/05. - IV fluids discontinued on 11/06 - General surgery and Radiology discussed and patient is perc drain was upsized on 11/13/2023 due to interval improvement condition. - Patient diet advanced after drain placed, now on low-fiber diet. - 11/16 Perc drain pulled - WBC elevated on am labs will continue to monitor. Afebrile and vitals remain WNL. (4) Hypertension: Code(s): I10 - Essential (primary) hypertension Status: Chronic Assessment and Plan: Chronic. Stable on home medications. - Originally holding antihypertensives in setting of sepsis. - Restarted amlodipine 10 mg daily - Monitor (5) History of shingles: Code(s): Z86.19 - Personal history of other infectious and parasitic diseases Status: Acute Assessment and Plan: Seen in [place] ED in August with a vesicular rash to her face with associated pain. She was given Valtrex and completed treatment per her reports. 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 -can add gabapentin 300 mg TID for pain -11/14 Patient has been on gabapentin 300 mg t.i.d. for 10 days for post herpetic neuralgia, will continue to taper dosing Subjective Date/time seen: 11/18/23 08:33 Interval history: 73 year old female with PMH allergies, HTN, and shingles (left facial, 0
[2023-11-18] MEDS: EUCERIN CREAM 120 GM JAR 1 APPLIC TOPICAL (09:29)
[2023-11-18] MEDS: SACCHAROMYCES BOULARDII 250 MG CAPSULE PO ×2 (09:29→16:55)
[2023-11-18] MEDS: GABAPENTIN 100 MG CAPSULE 200 MG PO (09:29)
[2023-11-18] MEDS: ENOXAPARIN 40 MG/0.4 ML SYRINGE SUB-Q (09:29)
[2023-11-18] MEDS: levoFLOXacin 750 MG TABLET PO (09:29)
[2023-11-18] MEDS: PANTOPRAZOLE 40 MG TABLET PO (09:29)
[2023-11-18 14:00] VITALS: BP 134/83; PULSE 98; RESP 17; TEMP 37.4; O2SAT 100
--- NOTE | 2023-11-18 18:40 | WPDPN ---
Progress Note: A&P Assessment and Plan (1) Diverticulitis of large intestine with abscess: Code(s): K57.20 - Diverticulitis of large intestine with perforation and abscess without bleeding Status: Acute Assessment and Plan: Patient's white blood cell count continues to rise despite no real changes in her clinical status. She has not had any fever or tachycardia at least not yet. Repeat CBC tomorrow and for white blood cell count continues to rise or she spikes a fever or becomes tachycardic then she will need a laparotomy with Mylene's procedure. I have had this discussion regarding possible need for surgery multiple occasions with the patient during this hospitalization. I think if she does not turn around quickly and turns of her white blood cell count then I think non operative management will have failed and she will need a surgery with a Mylene's procedure. She understands that 1 tail the sigmoid colon resection and at least temporary end colostomy. She understands and agrees with this plan to proceed with surgery if her clinical status deteriorates or her white blood cell count continues to rise. Subjective Date/time seen: 11/18/23 18:40 Interval history: Patient remains clinically stable today. No nausea vomiting or complaints of increasing abdominal pain. No fever. No tachycardia. [place] [address] [place] [address]. Her transgluteal pelvic drain was removed 2 days ago and her white blood cell count has steadily increased but without changes in her clinical status. Exam GI: Other: Abdomen is soft and mildly distended. Minimal if any tenderness to deep palpation in suprapubic and left lower quadrants of the abdomen. No masses are appreciated. No rebound tenderness or guarding is noted. Objective Data Vital Signs Vital Signs: Vital Signs - 24 hr 11/17/23 19:34 11/17/23 19:44 11/18/23 04:35 Temperature 36.6 C 36.5 C Pulse Rate 90 81 Respiratory Rate 18 18 Blood Pressure 127/73 125/72 Pulse Oximetry 100 100 Oxygen Delivery Room Air 11/18/23 09:29 11/18/23 14:00 Temperature 37.4 C Pulse Rate 98 Respiratory Rate 17 Blood Pressure 134/83 Pulse Oximetry 100 Oxygen Delivery Room Air Intake/Output Intake/Output: Intake & Output 11/15/23 11/16/23 11/17/23 11/18/23 23:59 23:59 23:59 23:59 Intake Total 940 1280 1970 2428 Output Total 3486 0290 2030 300 Balance -425 -190 -60 2128 Meds/Results Medications: Active Medications Generic Name Dose Route Start Last Admin Trade Name Freq PRN Reason Stop Dose Admin Acetaminophen 650 mg 11/04/23 20:45 11/18/23 05:48 Acetaminophen 325 Mg Tablet PO 650 mg Q4H PRN Administration Mild Pain (1-3) or Fever Amlodipine Besylate 10 mg 11/19/23 09:00 Amlodipine Besylate 5 Mg Tablet PO DAILY MANASA Diphenhydramine HCl 25 mg 11/17/23 12:38 11/17/23 13:09 Diphenhydramine Hcl Cap 25 Mg Capsule PO 25 mg Q6H PRN Administration Itching Enoxaparin Sodium 40 mg 11/08/23 09:00 11/18/23 09:29 Enoxaparin 40 Mg/0.4 Ml Syringe SUB-Q 40 mg DAILY MANASA Administration Gabapentin 200 mg 11/17/23 09:00 11/18/23 09:29 Gabapentin 100 Mg Capsule PO 200 mg DAILY MANASA Administration Hydralazine HCl 10 mg 11/04/23 20:42 Hydralazine Hcl 20 Mg/Ml Vial IV PUSH Q8H PRN Blood Pressure - High Levofloxacin 750 mg 11/13/23 12:00 11/18/23 09:29 Levofloxacin 750 Mg Tablet PO 750 mg DAILY MANASA Administration Metronidazole 500 mg 11/09/23 22:00 11/18/23 16:00 Metronidazole 500 Mg Tablet PO 500 mg Q8HR MANASA Administration Multi-Ingred Cream/Lotion/Oil/Oint 1 applic 11/05/23 09:00 11/18/23 09:29 Eucerin Cream 120 Gm Jar TOPICAL 1 applic DAILY MANASA Administration Ondansetron HCl 4 mg 11/04/23 17:09 Ondansetron Inj 4 Mg/2 Ml Vial IV PUSH Q4H PRN Nausea Pantoprazole Sodium 40 mg 11/13/23 0
[2023-11-18 19:25] VITALS: BP 128/77; PULSE 93; RESP 18; TEMP 37.2; O2SAT 97
[2023-11-19] MEDS: metroNIDAZOLE 500 MG TABLET PO (05:56)
[2023-11-19 06:00] VITALS: BP 135/69; PULSE 85; RESP 18; TEMP 37.4; O2SAT 100
[2023-11-19 07:57] LABS: Basophils Percent Auto 0.2 % (0.2-1.2); Eosinophils Percent Auto 0.2 % (0-4.4); Hematocrit 31.6 % (37.0-47.0); Immature Granulocyte Absolute 0.05 K/mm3 (0.00-0.031); Immature Granulocyte Percent A 0.4 % (0-0.5); Lymphocytes Absolute Auto 1.65 K/mm3 (0.9-3.2); Lymphocytes Percent Auto 12.6 % (18.3-44.2); Mean Corpuscular HGB Conc 31.6 g/dl (32-36); Mean Corpuscular Hemoglobin 30.3 pg (26-34); Mean Corpuscular Volume 95.8 fl (80-100); Mean Platelet Volume 9.5 fl (7.4-10.4); Monocytes Percent Auto 7.7 % (2.6-8.5); Neutrophils Absolute Auto 10.3 K/mm3 (1.3-6.7); Neutrophils Percent Auto 78.9 % (45.5-73.1); Platelet Count Result 438 k/mm3 (150-375); Red Cell Distribution Width 16.4 % (11.5-14.5); White Blood Count 13.1 K/mm3 (4.5-10.0)
[2023-11-19 08:05] LABS: Alanine Aminotransferase 13 U/L (6-35); Albumin Level 3.7 g/dL (3.5-5.1); Alkaline Phosphatase 68 U/L (38-126); Anion Gap 7 mmol/L (4-12); Aspartate Amino Transferase 21 U/L (14-36); Bilirubin,Total 0.7 mg/dL (0.2-1.3); Blood Urea Nitrogen 9 mg/dL (7-17); Carbon Dioxide 24 mmol/L (22-30); Chloride 103 mmol/L (98-107); Estimated CRCL calculation 65 ml/min; Estimated Glomerular Filt Rate > 60; Glucose 116 mg/dL (65-110); Sodium 134 mmol/L (137-145)
[2023-11-19 09:28] VITALS: BP 137/84; PULSE 97; O2SAT 99
[2023-11-19] MEDS: levoFLOXacin 750 MG TABLET PO (09:31)
[2023-11-19] MEDS: GABAPENTIN 100 MG CAPSULE 200 MG PO (09:32)
[2023-11-19] MEDS: PANTOPRAZOLE 40 MG TABLET PO (09:32)
[2023-11-19] MEDS: amLODIPine BESYLATE 5 MG TABLET 10 MG PO (09:32)
[2023-11-19] MEDS: SACCHAROMYCES BOULARDII 250 MG CAPSULE PO (09:32)
[2023-11-19] MEDS: ENOXAPARIN 40 MG/0.4 ML SYRINGE SUB-Q (09:33)
[2023-11-19] MEDS: EUCERIN CREAM 120 GM JAR 1 APPLIC TOPICAL (09:33)
--- NOTE | 2023-11-19 14:10 | PM.DS ---
DS: Admitting Diagnosis Discharge Date 11/19/23 Admitting Diagnosis Sepsis Abscess of sigmoid colon due to diverticulitis Sigmoid diverticulitis Hypertension History of shingles DS: Discharge Diagnosis Discharge Diagnosis (1) Sepsis: Code(s): A41.9 - Sepsis, unspecified organism Status: Resolved (2) Abscess of sigmoid colon due to diverticulitis: Code(s): K57.20 - Diverticulitis of large intestine with perforation and abscess without bleeding Status: Deleted (3) Sigmoid diverticulitis: Code(s): K57.32 - Diverticulitis of large intestine without perforation or abscess without bleeding Status: Deleted (4) Hypertension: Code(s): I10 - Essential (primary) hypertension Status: Chronic (5) History of shingles: Code(s): Z86.19 - Personal history of other infectious and parasitic diseases Status: Acute DS: Summary Hospital Course Reason for hospitalization: Sepsis Abscess of sigmoid colon due to diverticulitis Sigmoid diverticulitis Hypertension History of shingles Hospital Course: 73 year old female with PMH allergies, HTN, and shingles (left facial, 08/2023) presents here with abdominal and N/V. Labs with noted leukocytosis. 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 On admission met SIRS criteria and was started on zosyn and flagyl. General Surgery consulted, perc drain placed on 11/04. Drain was displaced when patient got up to go to the restroom and was repositioned on 11/05. Pulled on 11/16. The wound has since closed. Abscess culture grew streptococcus anginosus, bacteroides fragilis, prevotella, and E. coli.Patient was originally started on Zosyn and Flagyl on 11/03, however E. coli resistant to Zosyn, antibiotics changed on 11/12 to Levaquin and Flagyl. Patient discharged on augmentin and flagyl per surgery. Prior to discharge discussed patient with Dr. Johnson due to her elevated WBC on 11/17. He states that since patient remains clinically stable and the WBC have since returned to 13,000 she is okay to discharge. Discussed in depth that if the patient develops fever, worsening pain, or nausea/vomiting she is to return to the hospital. Patient will follow up with surgery in 1 week. Patient discharged home in stable condition. She will continue her antibiotics as prescribed and follow up with Dr. Johnson in 1 week. She will also follow up with PCP in 1 week to discuss recent admission. Status at Discharge Functional status at discharge: independent ambulation Time Spent with Patient Time attestation: Total time spent providing and/or coordinating discharge services: Time spent: Greater than 30 minutes Exam Narrative: AF HR 85 RR 18 SpO2 100 BP 135/69 General: female in no acute respiratory distress who is nontoxic appearing, lying semi recumbent in bed. HEENT: Normocephalic. Atraumatic. Pupils equal round reactive to light. Extraocular movement intact. Sclera clear and anicteric. No facial asymmetry. Chest: Lungs are clear to auscultation bilaterally. No wheezes or crackles. CV: Heart was regular rate and rhythm. S1-S2. No murmurs, gallops, or rubs. Abd: Abdomen was soft. Nontender. Nondistended. Positive bowel sounds. No organomegaly or masses. Ext: No clubbing, cyanosis, or edema. 2+ DP pulses bilaterally. Neuro: Patient is alert and oriented x4. Cranial nerves 2-12 are intact. Speech is clear. Psych: Normal mood and affect. Patient is pleasant and cooperative. Skin: Warm and dry. Drain site has closed, mild tenderness on palpation, no noted discharge. No rashes noted. DS: Data Data Completed and Pending Completed studies during hospitalization: Abdomen/pelvis CT Catheter placement CT Abdomen/pelvis CT Catheter placement CT Abdomen/pelvis CT Pelvis CT Catheter placement CT Abdomen/pelvis CT Labs on day of discharge: Labs from last 24 hours
== END 2023-11-19 11:41 | disposition home or self-care (01) | DRG 872 ==
LOC: ANHED 16:22 → ANH2MED 17:25
PROVIDERS: Internal Medicine Critical Care Medicine; Nurse Practitioner Acute Care; Nurse Practitioner Family; Radiology Diagnostic Radiology; Student in an Organized Health Care Education/Training Program; Admitting Provider Family Medicine; Emergency Provider Emergency Medicine; PCP Family Medicine; Visit Provider Family Medicine
PROC: 0W9J30Z Drainage of Pelvic Cavity with Drainage Device, Percutaneous Approach (ICD-10-PCS; principal; 2023-11-05 13:30)
DX: A41.9 Sepsis, unspecified organism (principal); K57.20 Diverticulitis of large intestine with perforation and abscess without bleeding; B02.29 Other postherpetic nervous system involvement; B37.0 Candidal stomatitis; T85.628A Displacement of other specified internal prosthetic devices, implants and grafts, initial encounter; I10 Essential (primary) hypertension; E87.6 Hypokalemia; Z86.19 Personal history of other infectious and parasitic diseases; F17.210 Nicotine dependence, cigarettes, uncomplicated; H60.543 Acute eczematoid otitis externa, bilateral; B95.4 Other streptococcus as the cause of diseases classified elsewhere; Y82.8 Other medical devices associated with adverse incidents; B96.6 Bacteroides fragilis [B. fragilis] as the cause of diseases classified elsewhere
CPT/HCPCS: 36415; 72192; 74176; 74177; 75989; 80048; 80053; 81003; 83605; 83690; 83735; 84100; 85025; 85027; 85610; 85730; 87040; 87070; 87075; 87076; 87077; 87186; 87205; 87493; 96365; 96366; 96375; 99285; A9270; C1729; C1769; C9113; G0378; J1650; J1836; J2250; J2270; J2405; J2543; J3010; J3480; J7030; J7040; J7050; J7120; Q9967

== ENCOUNTER 2023-12-03 06:53 | Outpatient (CLI) | payer MEDICARE, MEDICAID, SELFPAY ==
--- NOTE | ~2023-12-03 | CT_ITS ---
CT of the Abdomen and Pelvis: Indication: Diverticulitis Technique: 2.5 mm axial scans were obtained through the abdomen and pelvis following intravenous adm inistration of 100 cc of Omnipaque 350. Dose reduction technique was used on this scan by utilizing a utomated exposure control and iterative reconstruction technique. The dose-length product (DLP) was 8 91.49 mGy-cm. COMPARISON: 11/16/2023 Findings: Scans through the lung bases are unremarkable. Small hiatal hernia noted. The liver, spleen, pancreas, gallbladder, adrenals and kidneys are within normal limits. There are at herosclerotic calcifications of the aorta. No lymphadenopathy. There is residual wall thickening of the mid to distal sigmoid colon with pericolonic inflammatory ch jasper. Previously noted percutaneous drainage catheter has been removed. There is a small residual abs cess present at the vaginal cuff region measuring 2.5 x 1.6 cm (axial image 151). There is a probable fistulous tract or extension of abscess extending superolaterally to the left (coronal images 79-88) . Images through the pelvis were performed. Urinary bladder unremarkable. Status post hysterectomy. No ascites. Impression: Status post interval removal of percutaneous drainage catheter from pelvic abscess. 2.5 x 1.6 cm resi dual pelvic abscess at the vaginal cuff, with extension of a probable fistulous tract superolaterally to the sigmoid colon, versus extension of the abscess, as detailed above. Residual wall thickening of the mid to distal; and mild adjacent inflammatory change. Reviewed, dictated and finalized at [facility]. Impression: Status post interval removal of percutaneous drainage catheter from pelvic absc ess. 2.5 x 1.6 cm residual pelvic abscess at the vaginal cuff, with extension o f a probable fistulous tract superolaterally to the sigmoid colon, versus exten devonte of the abscess, as detailed above. Residual wall thickening of the mid to distal; and mild adjacent inflammatory c hange.
== END 2023-12-03 06:54 | disposition home or self-care (01) ==
PROVIDERS: PCP Nurse Practitioner Family; Visit Provider Surgery
DX: N89.8 Other specified noninflammatory disorders of vagina (principal); K57.20 Diverticulitis of large intestine with perforation and abscess without bleeding; Z98.890 Other specified postprocedural states
CPT/HCPCS: 74177; Q9967

== ENCOUNTER 2024-12-03 08:01 | Outpatient (CLI) | payer MEDICARE, MEDICAID, SELFPAY ==
--- NOTE | ~2024-12-03 | US_ITS ---
Abdominal Sonogram: Real-time sonographic imaging of the abdomen was performed. Clinical History: Abdominal pain Findings: The liver appears echogenic, with no evidence of bile duct dilatation. There is a 4.1 x 3. 9 x 3.8 cm possible mass at the right hepatic lobe versus possibly mild fatty sparing. Main portal ve in demonstrates normal direction of flow. The spleen is normal in size without evidence of focal lesi on. The gallbladder is well distended, and appears normal with no evidence of gallstone or wall thic kening. The common bile duct measures 4 mm. The visualized pancreas, aorta, and IVC are unremarkable . The right kidney measures 10.8 cm in length and the left kidney measures 11.6 cm. There is no hyd ronephrosis or renal calculus. Impression: Diffuse fatty infiltration of the liver. 4.1 x 3.9 x 3.8 cm possible hepatic mass versus area of fatty sparing. Pre and postcontrast hepatic M R recommended to further assess. Reviewed, dictated and finalized at location M. Impression: Diffuse fatty infiltration of the liver. 4.1 x 3.9 x 3.8 cm possible hepatic mass versus area of fatty sparing. Pre and postcontrast hepatic MR recommended to further assess.
--- NOTE | ~2024-12-03 | XR_ITS ---
XR lumbar spine 2-3V 12/03/2024 08:55 Indication: Low back pain Procedure: 3 views lumbar spine Comparison: No prior studies for comparison. Findings: There is levoscoliosis. There is disc narrowing at L2-3, L3-4, L4-5 and L5-S1. There is fac et hypertrophy at L4-5 and L5-S1. No acute fracture or traumatic malalignment. No evidence for spondy lolisthesis. Pedicles intact. Sacral foramen are symmetric. Impression: 1: Moderate lumbar spondylosis with levoscoliosis. Reviewed, dictated and finalized at location B. Impression: 1: Moderate lumbar spondylosis with levoscoliosis.
--- OUTSIDE RECORDS SUMMARY | 2024-12-03 08:06 | XMS_ITS | Data Portability ---
[facility] Organization [facility] Main Office Address [address] [place] [address] Assessment Encounter Date Assessment Date Assessment LastModified by Organization Details LastModified Time 02/25/2024 02/25/2024 I have reconciled the patient's medications post their discharge from inpatient facility. Not available 02/25/2024 15:35:00 Plan of Treatment Reminders Order Date Submit Date Provider Last Modified By Organization Details Last Modified Time Details Appointments None recorded. Lab TSH, serum or plasma 2023 024 [email or web address] Not available 4 08:08:19 vitamin D3, 25-hydroxy, serum 2023 024 [email or web address] Not available 4 08:08:20 HbA1c (hemoglobin A1c), blood 2023 024 [email or web address] Not available 4 08:08:20 CBC w/ auto diff 2023 024 [email or web address] Not available 4 08:08:20 BMP, serum or plasma 2023 024 [email or web address] Not available 4 08:08:20 lipid panel, serum 2023 024 [email or web address] Not available 4 08:08:20 hepatic function panel, serum 2023 024 [email or web address] Not available 4 08:08:20 vitamin D, 25-hydroxy, total, serum 2022 023 [email or web address] Not available 3 07:54:52 HbA1c (hemoglobin A1c), blood 2022 023 [email or web address] Not available 3 07:54:52 noninvasive colorectal cancer DNA + occult blood screening, QL, stool 2022 023 [email or web address] [facility] (Cologuard Orders Only), [address], [place], [address], 3 07:54:53 BMP, serum or plasma 2022 023 [email or web address] Not available 3 07:54:52 CBC w/ auto diff 2022 023 [email or web address] Not available 3 07:54:52 lipid panel, serum 2022 023 [email or web address] Not available 3 07:54:52 hepatic function panel, serum 2022 023 [email or web address] Not available 3 07:54:52 Referral gynecologis t referral - Please call patient to schedule an appointment with a female provider. Thank you. 2023 024 [email or web address] [facility], [address], [place], [address], 4 08:44:10 Procedures None recorded. Surgeries None recorded. Imaging US, thyroid - *Please call pt to schedule* [email or web address] [place] [address] ([facility]), [address] [place], [address], 4 09:21:43 DEXA - *Please call pt to schedule* 2023 [email or web address] [place] [address] ([facility]), [address] [place], [address], 4 09:22:00 Medication Orders methocarbam ol 500 mg tablet 2023 024 [facility] [address], [address], 4 15:18:03 gabapentin 600 mg tablet 2023 024 [facility] [id number], [address], 4 18:05:35 doxycycline hyclate 100 mg capsule 2023 024 [email or web address] [facility] [address], [address], 4 16:28:22 Patient TargetsNo targets recorded. Patient Instructions Encounter Date Encounter Id Patient Instructions Last Modified By Organization Details Last Modified Time 08/26/2023 [id number] [facility] Plan and Screening Recommendations Advance Directives - Do you have one? Advance Directives - Do we have your advance directive on file in your health record? Primary Prevention/Interven tion (prevents or decreases the chance of common diseases from occurring) Smoking Risk: Smoker Continue to consider stopping smoking and call if we can assist you Alcohol Misuse Screening: Weight: Physical activity: Nutrition: Fall Risk (screened today): Vaccines Pneumococcal: Influenza: Recommended today, but you have declined Chronic Disease Risks Stroke: Active diagnosis, Continue current treatment plan Heart Attack: Active diagnosis, Continue current treatment plan Clogging of the Arteries: Active diagnosis, Continue current treatment plan Diabetes: Active diagnosis, Continue current treatment plan Secondary Prevention/Interven tion (detects treatable diseases before they may cause symptoms, disability, or ) Breast Cancer Screening with mammogram: Ordered Cervical/Uterine/Ov shawn Cancer Screening: Osteoporosis Screening: Ordered Date Screening Last Performed: Colon Cancer Screening: Date Screening Last Performed: Eye Disease Screening: Your next exam in: Dementia Risk: Depression Screening: Active diagnosis, Continue current treatment plan Not available 08/26/2023 11:28:19 02/25/2024 [id number] Thank you for yo ur visit to our office today. We would like to request that you reach out to your referring or previous provider and request that they send us a Summary of Care in electronic form, so that we may have it on file in your medical record. At your visit, we had the medical records we needed to provide you with the best possible care; however, for insurance purposes, an electronic Summary of Care is beneficial. Thank you for your assistance in obtaining this information and we look forward to providing continued care to you. Please review your medication list from the Summary of Care for this visit. If there are any differences from what you are currently taking at home, please call us to discuss. Not available 02/25/2024 15:35:01 Homebound Status : Required Home Health Services: Durable Medical Equipment needed: Billing Guidelines CPT code 30726- Transitional Care Management services with moderate medical decision complexity ([id number] visit within 14 days of discharge). CPT code 83925- Transitional Care Management services with high medical decision complexity ([id number]-[id number] visit within 7 days of discharge). Not available 02/25/2024 15:35:01 Reason for Referral Home Care Nurse Referral for [facility] ginal discharge Please call patient to schedule an appointment with a female provider. Thank you. Referring Physician: Deborah Whitten, Family Medicine, Encounter Date: 01/04/2024 Results Created Date Observation Date Name Description Value Unit Range Abnormal Flag Note LastModifiedBy Organization Detail LastModifiedTime 02/04/20 23 02/03/2023 COLOG UARD cologuard result reportable NEGATI VE negati ve NEGAT ELVA TEST RESUL T. A negat elva Colog uard resul t indic ates a low likel ihood that a color ectal cance r (CRC) or advan kendra adeno ma ([place] us polyp s with more advan kendra pre-m align ant featu res) is prese nt. The chanc e that a perso n with a negat evla Colog uard test has a color ectal cance r is less than 1 in 1500 (nega tive predi ctive value >99.9 %) or has an advan kendra adeno ma is less than 5.3% (nega tive predi ctive value 94.7% ). These data are based on a prosp ectiv e cross -sect ional study of 10,00 0 indiv idual s at [facility] risk for color ectal cance r who were scree sami with both Colog uard and colon oscop y. (Dimitri Ruiz al, N Engl J Med 2014; 370(1 4):12 86-12 97) The aviva l value (refe rence range ) for this assay is negat elva. COLOG UARD RE-SC REENI NG RECOM MENDA TION: Perio dic color ectal cance r [place] is an impor tant part of preve ntive healt hcare for asymp tomat ic indiv idual s at [facility] [facility] risk for color ectal cance r. Follo wing a negat elva Colog uard resul t, the Ameri can Cance r Socie ty and U.S. Multi -Soci ety Task Force [place] guide lines recom mend a Colog uard re-sc reeni ng inter ki of 3 years . Refer ences : Ameri can Cance r Socie ty Guide line for Color ectal Cance r [place]ree [place]: https ://ww w.can cer.o rg/ca ncer/ colon -rect al-ca ncer/ detec tion- diagn osis- stagi ng/ac s-rec ommen datio ns.ht ml.; Roberth HERNANDEZ, Bereket godwin CR, Ginette MCLEOD, Color ectal Cance r [place]: Recom menda tions for Physi cians and Patie nts from the U.S. Multi -Soci ety Task Force on Color ectal Cance r Scree [place] , Am J Gastr oente rolog y 2017; 112:1 016-1 030. TEST DESCR IPTIO N: [place] site algor ithmi c dominick sis of stool DNA-b iocamelia kers with hemog lobin immun oassa y. Quant itati ve value s of indiv idual bioma rkers are not repor table and are not assoc iated with indiv idual bioma rker resul t refer ence range s. Colog uard is inten ded for color ectal cance r [place] of adult s of eithe r sex, 45 years or older , who are at [facility] for color ectal cance r (CRC) . Colog uard has been appro rachell for use by the U.S. FDA. The perfo rmanc e of Colog uard was estab lishe d in a cross secti onal study of [facility] adult s aged 50-84 . Colog uard perfo rmanc e in patie nts ages 45 to 49 years was estim ated by sub-g roup dominick sis of near- age group s. Colon oscop ies perfo rmed for a posit elva resul t may find as the most clini justin signi taras t marita n: color ectal cance r [4.0% ], advan kendra adeno ma (incl uding sessi le angel gerson polyp s great er than or equal to 1cm diame ter) [20%] or non- advan kendra adeno ma [31%] ; or no color ectal neopl venita [45%] . These estim ates are deriv ed from a prosp ectiv e cross -sect ional [place] study of 0 indiv idual s at [facility] risk for color ectal cance r who were scree sami with both Colog uard and colon oscop y. (Dimitri Steven et al, N Engl J Med 2014; 370(1 4):12 86-12 97.) Colog uard may produ ce a false negat elva or false posit elva resul t (no color ectal cance r or preca ncero us polyp prese nt at colon oscop y follo w up). A negat elva Colog uard test resul t does not guara ntee the absen ce of CRC or advan kendra adeno ma (pre- cance r). The curre nt Colog uard [place] inter ki is every 3 years . (Amer ican Cance r Socie ty and U.S. Multi -Soci ety Task Force ). Colog uard perfo rmanc e data in a 0 patie nt pivot al study using colon oscop y as the refer ence metho d can be acces sed at the follo wing locat ion: www.e xactl abs.c om/re sulbonnie . Addit ional descr iptio n of the Colog uard test proce ss, warni ngs and preca ution s can be found at www.c jhony san.c om. Not Available [facility] (Cologuard Orders Only) [address], [place], [address], 02/11/2023 00:51:13 04/04/2004/05/2023 CBC/D IFF AMBIG UOUS DEFAU LT WBC 8.7 x10e3 /uL 3.4-10 .8 Not Available [facility] ([facility]) [address] [facility], [place], [address], 04/05/2023 08:09:36 04/04/2004/05/2023 CBC/D IFF AMBIG UOUS DEFAU LT RBC 4.41 x10e6 /uL 3.77-5 .28 Not Available [facility] ([facility]) [address] [facility], [place], [address], 04/05/2023 08:09:36 04/04/2004/05/2023 CBC/D IFF AMBIG UOUS DEFAU LT hemoglobin 13.2 g/dL 11.1-1 5.9 Not Available [facility] ([facility]) [address] [facility], [place], [address], 04/05/2023 08:09:36 04/04/2004/05/2023 CBC/D IFF AMBIG UOUS DEFAU LT hematocrit 40.8 % 34.0-4 6.6 Not Available [facility] ([facility]) [address] [place], [address], 04/05/2023 08:09:36 04/04/2004/05/2023 CBC/D IFF AMBIG UOUS DEFAU LT MCV 93 fL 79-97 Not Available [facility] ([facility]) [address] [facility], [place], [address], 04/05/2023 08:09:36 04/04/2004/05/2023 CBC/D IFF AMBIG UOUS DEFAU LT MCH 29.9 pg 26.6-3 3.0 Not Available [facility] ([facility]) [address] [facility], [place], [address], 04/05/2023 08:09:36 04/04/2004/05/2023 CBC/D IFF AMBIG UOUS DEFAU LT MCHC 32.4 g/dL 31.5-3 5.7 Not Available [facility] ([facility]) [address] [facility], [place], [address], 04/05/2023 08:09:36 04/04/2004/05/2023 CBC/D IFF AMBIG UOUS DEFAU LT RDW 13.2 % 11.7-1 5.4 Not Available [facility] ([facility]) [address] [facility], [place], [address], 04/05/2023 08:09:36 04/04/2004/05/2023 CBC/D IFF AMBIG UOUS DEFAU LT platelets 260 x10e3 /uL 150-45 0 Not Available [facility] ([facility]) [address] [facility], [place], [address], 04/05/2023 08:09:36 04/04/2004/05/2023 CBC/D IFF AMBIG UOUS DEFAU LT neutrophils 56 % not estab. Not Available [facility] ([facility]) [address] [facility], [place], [address], 04/05/2023 08:09:36 04/04/2004/05/2023 CBC/D IFF AMBIG UOUS DEFAU LT lymphs 36 % not estab. Not Available [facility] ([facility]) [address] [facility], [place], [address], 04/05/2023 08:09:36 04/04/2004/05/2023 CBC/D IFF AMBIG UOUS DEFAU LT monocytes 6 % not estab. Not Available [facility] ([facility]) [address] [facility], [place], [address], 04/05/2023 08:09:36 04/04/2004/05/2023 CBC/D IFF AMBIG UOUS DEFAU LT eos 2 % not estab. Not Available [facility] ([facility]) [address] [facility], [place], [address], 04/05/2023 08:09:36 04/04/2004/05/2023 CBC/D IFF AMBIG UOUS DEFAU LT basos 0 % not estab. Not Available [facility] ([facility]) [address] [facility], [place], [address], 04/05/2023 08:09:36 04/04/2004/05/2023 CBC/D IFF AMBIG UOUS DEFAU LT immature cells MANAGER CALL CENTER Not Available [facility] ([facility]) [address] [facility], [place], [address], 04/05/2023 08:09:36 04/04/2004/05/2023 CBC/D IFF AMBIG UOUS DEFAU LT neutrophils (absolute) 4.9 x10e3 /uL 1.4-7. 0 Not Available [facility] ([facility]) [address] [facility], [place], [address], 04/05/2023 08:09:36 04/04/2004/05/2023 CBC/D IFF AMBIG UOUS DEFAU LT lymphs (absolute) 3.1 x10e3 /uL 0.7-3. 1 Not Available [facility] ([facility]) [address] [facility], [place], [address], 04/05/2023 08:09:36 04/04/2004/05/2023 CBC/D IFF AMBIG UOUS DEFAU LT monocytes(ab solute) 0.5 x10e3 /uL 0.1-0. 9 Not Available [facility] ([facility]) [address] [facility], [place], [address], 04/05/2023 08:09:36 04/04/2004/05/2023 CBC/D IFF AMBIG UOUS DEFAU LT eos (absolute) 0.1 x10e3 /uL 0.0-0. 4 Not Available [facility] ([facility]) [address] [facility], [place], [address], 04/05/2023 08:09:36 04/04/2004/05/2023 CBC/D IFF AMBIG UOUS DEFAU LT baso (absolute) 0.0 x10e3 /uL 0.0-0. 2 Not Available [facility] ([facility]) [address] [facility], [place], [address], 04/05/2023 08:09:36 04/04/2004/05/2023 CBC/D IFF AMBIG UOUS DEFAU LT immature granulocytes 0 % not estab. Not Available [facility] ([facility]) [address] [facility], [place], [address], 04/05/2023 08:09:36 04/04/2004/05/2023 CBC/D IFF AMBIG UOUS DEFAU LT immature grans (abs) 0.0 x10e3 /uL 0.0-0. 1 Not Available [facility] ([facility]) [address] [facility], [place], [address], 04/05/2023 08:09:36 04/04/2004/05/2023 CBC/D IFF AMBIG UOUS DEFAU LT NRBC MA[facility] CALL C[facility] Not Available [facility] ([facility]) [address] [facility], [place], [address], 04/05/2023 08:09:36 04/04/2004/05/2023 CBC/D IFF LARISA MALAVE DEFAU LT hematology comments: [facility] CALL CENTER A hand- writt en panel /prof lopez was recei rachell from your offic e. In accor dance with the [facility] Larisa malave Test Code Polic y dated December 2002, we have assig sami CBC with Diffe ruben al/Pl atesosa t, Test Code #[address]. If this is not the testi ng you wishe d to recei ve on this speci men, pleas e conta ct the [facility] Clien t Inqui ry/ Techn ical Servi sherri Depar tment to wesley fy the test order . We appre ciate your busin ess. Not Available [facility] ([facility]) [address] [place], [address], 04/05/2023 08:09:36 04/04/2004/05/2023 BASIC METAB OLIC PANEL (8) glucose 105 mg/dL 70-99 above high normal Not Available [facility] ([facility]) [address] [place], [address], 04/05/2023 08:09:37 04/04/2004/05/2023 BASIC METAB OLIC PANEL (8) BUN 12 mg/dL 8-27 Not Available [facility] ([facility]) [address] [place], [address], 04/05/2023 08:09:37 04/04/2004/05/2023 BASIC METAB OLIC PANEL (8) creatinine 0.94 mg/dL 0.57-1 .00 Not Available [facility] ([facility]) [address] [place], [address], 04/05/2023 08:09:37 04/04/2004/05/2023 BASIC METAB OLIC PANEL (8) eGFR 65 mL/mi n/1.7 3 >59 Not Available [facility] ([facility]) [address] [facility], [place], [address], 04/05/2023 08:09:37 04/04/2004/05/2023 BASIC METAB OLIC PANEL (8) BUN/creatini ne ratio 13 12-28 Not Available [facility] ([facility]) [address] [facility], [place], [address], 04/05/2023 08:09:37 04/04/2004/05/2023 BASIC METAB OLIC PANEL (8) sodium 142 mmol/ L 134-14 4 Not Available [facility] ([facility]) [address] [facility], [place], [address], 04/05/2023 08:09:37 04/04/2004/05/2023 BASIC METAB OLIC PANEL (8) potassium 4.8 mmol/ L 3.5-5. 2 Not Available [facility] ([facility]) [address] [facility], [place], [address], 04/05/2023 08:09:37 04/04/2004/05/2023 BASIC METAB OLIC PANEL (8) chloride 104 mmol/ L 96-106 Not Available [facility] ([facility]) [address] [facility], [place], [address], 04/05/2023 08:09:37 04/04/2004/05/2023 BASIC METAB OLIC PANEL (8) carbon dioxide, total 24 mmol/ L 20-29 Not Available [facility] ([facility]) [address] [facility], [place], [address], 04/05/2023 08:09:37 04/04/2004/05/2023 BASIC METAB OLIC PANEL (8) calcium 9.8 mg/dL 8.7-10 .3 Not Available [facility] ([facility]) [address] [facility] [place], [address], 04/05/2023 08:09:37 04/04/2004/05/2023 LIPID PANEL cholesterol, total 200 mg/dL 100-19 9 above high normal Not Available [facility] ([facility]) [address] [place], [address], 04/05/2023 08:09:38 04/04/2004/05/2023 LIPID PANEL triglyceride s 114 mg/dL 0-149 Not Available [facility] ([facility]) [address] [place], [address], 04/05/2023 08:09:38 04/04/2004/05/2023 LIPID PANEL HDL cholesterol 51 mg/dL >39 Not Available [facility] ([facility]) [address] [place], [address], 04/05/2023 08:09:38 04/04/2004/05/2023 LIPID PANEL VLDL cholesterol sudha 20 mg/dL 5-40 Not Available [facility] ([facility]) [address] [place], [address], 04/05/2023 08:09:38 04/04/2004/05/2023 LIPID PANEL LDL chol calc ([facility]) 129 mg/dL 0-99 above high normal Not Available [facility] ([facility]) [address] [place], [address], 04/05/2023 08:09:38 04/04/2004/05/2023 LIPID PANEL comment: MANAGER CALL CENTER Not Available [facility] ([facility]) [address] [facility] [place], [address], 04/05/2023 08:09:38 04/04/2004/05/2023 HEPAT IC FUNCT ION PANEL (7) protein, total 8.0 g/dL 6.0-8. 5 Not Available [facility] ([facility]) [address] [facility] [place], [address], 04/05/2023 08:09:39 04/04/2004/05/2023 HEPAT IC FUNCT ION PANEL (7) albumin 4.3 g/dL 3.9-4. 9 Not Available [facility] ([facility]) [address] [facility], [place], [address], 04/05/2023 08:09:39 04/04/2004/05/2023 HEPAT IC FUNCT ION PANEL (7) bilirubin, total 0.2 mg/dL 0.0-1. 2 Not Available [facility] ([facility]) [address] [facility], [place], [address], 04/05/2023 08:09:39 04/04/2004/05/2023 HEPAT IC FUNCT ION PANEL (7) bilirubin, direct <0.10 mg/dL 0.00-0 .40 Not Available [facility] ([facility]) [address] [facility], [place], [address], 04/05/2023 08:09:39 04/04/2004/05/2023 HEPAT IC FUNCT ION PANEL (7) alkaline phosphatase 92 IU/L 44-121 Not Available [facility] ([facility]) [address] [facility], [place], [address], 04/05/2023 08:09:39 04/04/2004/05/2023 HEPAT IC FUNCT ION PANEL (7) AST (SGOT) 22 IU/L 0-40 Not Available [facility] ([facility]) [address] [facility], [place], [address], 04/05/2023 08:09:39 04/04/2004/05/2023 HEPAT IC FUNCT ION PANEL (7) ALT (SGPT) 14 IU/L 0-32 Not Available [facility] ([facility]) [address] [facility], [place], [address], 04/05/2023 08:09:39 04/04/2004/05/2023 HEMOG LOBIN A1C hemoglobin A1C 5.9 % 4.8-5. 6 above high normal Predi abete s: 5.7 - 6.4 Diabe anna: >6.4 Glyce jaime contr ol for adult s with diabe anna: <7.0 Not Available [facility] ([facility]) [address] [facility], [place], [address], 04/05/2023 08:09:40 04/04/2004/05/2023 VITAM IN D, 25-HY DROXY vitamin D, 25-hydroxy 42.2 NG/mL 30.0-1 00.0 Vitam in D defic iency has been defin ed by the Insti tute of Medic ine and an Endoc rine Socie ty pract ice guide line as a level of serum 25-OH vitam in D less than 20 ng/mL (1,2) . The Endoc rine Socie ty went on to furth er defin e vitam in D insuf ficie ncy as a level betwe en 21 and 29 ng/mL (2). 1. IOM (Inst itute of Medic ine). 2009. Dieta ry refer ence yue es for calci um and D. Gladys sequeira [place]: The [facility] Press . 2. Saulo hickman MF, Dl puri [place], Asa off-F errar i TIM, et al. Evalu ation , treat ment, and preve ntion of vitam in D defic iency : an Endoc rine Socie ty clini sudha pract ice guide line. JCEM. 2010; 96(7) :1911 -30. Not Available [facility] ([facility]) [address] [facility], [place], [address], 04/05/2023 08:09:41 04/04/20 23 04/04/2023 AMBIG ABBRE V BMP8 DEFAU LT ambig abbrev BMP8 default Commen t A hand- writt en panel /prof ile was recei rachell from your offic e. In accor dance with the [facility] Ambig uous Test Code Polic y dated December 2002, we have compl eted your order by using the close st curre ntly or forme rly recog nized AMA panel . We have assmurray gallardo Basic Metab olic Panel (8), Test Code #3227 [address]. If this is not the testi ng you wishe d to recei ve on this speci men, pleas e conta ct the [facility] Clien t Inqui ry/Te chnic al Servi sherri Depar tment to wesley fy the test order . We appre ciate your busin ess. Not Available [facility] ([facility]) [address] [place], [address], 04/05/2023 08:09:42 04/04/2004/04/2023 AMBIG ABBRE V LP DEFAU LT ambig abbrev LP default COMMEN T A hand- writt en panel /prof ile was recei rachell from your offic e. In accor dance with the [facility] Ambig uous Test Code [facility] y dated December 2002, we have compl eted your order by using the close st curre ntly or forme rly recog nized AMA panel . We have assmurray gallardo Lipid Panel , Test Code #3037 [address]. If this is not the testi ng you wishe d to recei ve on this speci men, pleas e conta ct the [facility] Clien t Inqui ry/Te chnic al Servi sherri Depar tment to wesley fy the test order . We appre ciate your busin ess. Not Available [facility] ([facility]) [address] [facility], [place], [address], 04/05/2023 08:09:42 04/04/2004/04/2023 AMBIG ABBRE V HFP7 DEFAU LT ambig abbrev hfp7 default Commen t A hand- writt en panel /prof ile was recei rachell from your offic e. In accor dance with the [facility] Ambig uous Test Code [facility] y dateDecember 2002, we have compl eted your order by using the close st curre ntly or forme rly recog nized AMA panel . We have assmurray gallardo Hepat ic Funct ion Panel (7), Test Code #3227 [address]. If this is not the testi ng you wishe d to recei ve on this speci men, pleas e conta ct the [facility] Clien t Inqui ry/Te chnic al Servi sherri Depar tment to wesley fy the test order . We appre ciate your busin ess. Not Available [facility] ([facility]) [address] [facility], [place], [address], 04/05/2023 08:09:43 11/05/1911/05/2023 CT guide d aspir ation proce dure (PROC ) No observ ation record ed. [address] [address], [place], [address], 11/06/2023 19:27:27 11/05/19 24 11/05/2023 CT, abdom en + pelvi s, w/o contr ast No observ ation record ed. [address] [address], [place], [address], 11/06/2023 19:27:48 11/08/19 24 11/08/2023 CT, abdom en + pelvi s, w/o contr ast No observ ation record ed. [address] [address], [place], [address], 11/09/2023 16:16:10 11/09/19 24 11/09/2023 CT guide d aspir ation proce dure (PROC ) No observ ation record ed. [address], [address], 11/09/2023 16:16:27 11/13/19 24 11/13/2023 CT, abdom en + pelvi s, w/o contr ast No observ ation record ed. [address], [address], 11/16/2023 10:13:04 11/16/19 24 11/16/2023 CT, abdom en + pelvi s, w/o contr ast No observ ation record ed. [email or web address] [facility] [address], [place], [address], 11/16/2023 11:11:19 12/03/19 24 12/03/2023 CT, abdom en + pelvi s, w/ contr ast No observ ation record ed. [email or web address] [facility] [address] [facility] [address], [place], [address], 12/09/2023 09:45:20 Result Notes None recorded. Problems Name Problem SNOMED Code Status Onset Date Resolution Date Notes Provider Name and Address Organization Details Recorded Time Hyperlipidemi a 76324626 Active 2019 Not Available [facility] 3 13:30:34 Carpal tunnel syndrome 97324779 Active Not Available [facility] 3 13:30:34 Hidradenitis suppurativa 71218172 Active 2021 Not Available [facility] 3 13:30:35 Essential hypertension 49911648 Active 2018 Not Available [facility] 3 13:30:35 Prediabetes 917854887 Active 2018 Not Available [facility] 3 13:30:35 Pain in limb 36732020 Active Not Available [facility] 3 13:30:35 Bilateral earache 039906220 Active 2022 Torrie Alas MD [address], [facility] [address], [place], [address] , [employer] 3 16:56:58 Vitamin D deficiency 50553626 Active 2022 Torrie Alas MD [address], [facility] [address], [place], [address] , [employer] 3 12:05:54 Thyroid nodule 745661608 Active 2023 Torrie Alas MD [address] [facility] [address], [place], [address] , [employer] 4 11:18:45 Herpes zoster 0007995 Active 2023 Torrie Alas MD [address], [place], [address] , [employer] 4 17:19:37 Vaginal discharge 676528084 Active 2023 BISI Finney [address], [place], [address] , [employer] 4 09:05:47 Anxiety 37415041 Active 2023 BISI Finney [address], [place], [address] , [employer] 4 13:41:51 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 Procedures Surgical History Date Name Laterality Status Provider Name and Address Organization Details Recorded Time 02/25/20 24 Transitional_Car e_Management completed Maggy Monahan MA [facility] 02/25/2024 15:35:01 08/26/19 24 Medicare Wellness CPT Code, subsequent completed Shivam Meza RN [facility] 08/26/2023 11:03:13 Hysterectomy completed Not Available [facility] 08/20/2022 13:29:42 Imaging Results None recorded. Procedure Notes None recorded. Medical Equipment None Reported. Allergies No known drug allergies Medications Name Sig Start Date Stop Date Status Note LastModified by Organization Details LastModified Time cyclobenzap rine 10 mg tablet TK 1 T PO Q 8 H 09/14 completed Not Available Not Available Not Available latanoprost 0.005 % eye drops INSTILL 1 DROP INTO BOTH EYES AT BEDTIME active Not Available Not Available No t Available methocarbam ol 500 mg tablet TAKE 1 TABLET BY MOUTH TWICE A DAY NEEDED 2024 active Not Available Not Available Not Avai lable prednisone 10 mg tablet TAKE 4 TABLETS BY MOUTH ON DAYS 1-3, 3 TABLETS ON DAYS 4-5, 2 TABLETS ON DAY 6 AND 1 TABLET ON DAY 7 01/03 completed Not Available Not Available Not Available gabapentin 600 mg tablet TAKE 1 TABLET 3 TIMES A DAY BY ORAL ROUTE. active Not Available Not Available No t Available doxycycline hyclate 100 mg capsule TAKE 1 CAPSULE BY MOUTH TWICE A DAY FOR 14 DAYS 02/24 completed Not Available Not Available Not Available naproxen 375 mg tablet TAKE 1 TABLET BY MOUTH TWICE A DAY NEEDED FOR PAIN/INFL AMMATION 02/24 completed Not Available Not Available Not Available valacyclovi r 1 gram tablet TAKE 1 TABLET BY MOUTH 3 TIMES DAILY 02/24 completed Not Available Not Available Not Available hydrocodone 5 mg-acetamin ophen 325 mg tablet 09/14 completed Not Available Not Available Not Available ondansetron HCl 8 mg tablet Take 1 tablet every 8 hours by oral route as needed. active Not Available Not Available No t Available prednisone 20 mg tablet Take 2 tablets every day by oral route for 5 days. 02/24 completed Not Available Not Available Not Available metronidazo le 500 mg tablet THE DAY BEFORE SURGERY TAKE METRONIDA ZOLE (FLAGYL) 500 MG BY MOUTH AT 1 PM, 2 PM, AND 10 PM. active Not Available Not Available No t Available sulfamethox azole 800 mg-trimetho prim 160 mg tablet Take 1 tablet every 12 hours by oral route for 30 days. active Not Available Not Available No t Available omeprazole 40 mg capsule,del ayed release TAKE 1 CAPSULE BY MOUTH EVERY DAY 2024 active Not Available Not Available Not Avai lable tramadol 50 mg tablet TAKE 1 TABLET BY MOUTH EVERY 6 HOURS NEEDED FOR PAIN active Not Available Not Available No t Available triamcinolo ne acetonide 0.1 % topical cream APPLY A THIN LAYER TOPICALLY TO THE AFFECTED AREA(S) 2 TIMES PER DAY NEEDED FOR RASH 02/24 completed Not Available Not Available Not Available ondansetron 8 mg disintegrat ing tablet TAKE 1 TABLET BY MOUTH ONCE AT 11:00 THE DAY BEFORE SURGERY TO PREVENT NAUSEA. active Not Available Not Available No t Available ketorolac 0.5 % eye drops 02/24 completed Not Available Not Available Not Available meloxicam 7.5 mg tablet 09/14 completed Not Available Not Available Not Available oxycodone-a cetaminophe n 5 mg-325 mg tablet 01/03 completed Not Available Not Available Not Available amoxicillin 875 mg tablet Take 1 tablet every 12 hours by oral route for 7 days. active Not Available Not Available No t Available Kenalog 10 mg/mL suspension for injection In office injection administe red by the provider 09/07 completed [facility]: [phone]- [phone] Not Available Not Available Not Available amlodipine 10 mg tablet TAKE 1 TABLET BY MOUTH EVERY DAY 2024 active Not Available Not Available Not Avai lable cephalexin 500 mg capsule 10/12 completed Not Available Not Available Not Available triamcinolo ne acetonide 0.1 % topical ointment APPLY A THIN LAYER TO THE AFFECTED AREA(S) BY TOPICAL ROUTE 2 TIMES PER DAY prn active Not Available Not Available No t Available clobetasol 0.05 % topical foam APPLY TO THE AFFECTED AREA(S) BY TOPICAL ROUTE 2 TIMES PER DAY IN THEMORNIN G AND EVENING 11/30 completed Not Available Not Available Not Available polymyxin B sulfate 10,000 unit-trimet hoprim 1 mg/mL eye drops 09/07 completed Not Available Not Available Not Available fluocinolon e 0.01 % topical body oil 02/24 completed Not Available Not Available Not Available docusate sodium 100 mg capsule TAKE 1 CAPSULE BY MOUTH TWICE A DAY 02/24 completed Not Available Not Available Not Available gabapentin 300 mg capsule TAKE 1 CAPSULE BY MOUTH TWICE A DAY 02/24 completed Not Available Not Available Not Available diclofenac sodium 75 mg tablet,sulema yed release TAKE 1 TABLET BY MOUTH TWICE A DAY WITH FOOD 08/25 completed Not Available Not Available Not Available cephalexin 500 mg tablet Take 1 tablet twice a day by oral route for 10 active Not Available Not Available No t Available ibuprofen 600 mg tablet TAKE 1 TABLET BY MOUTH THREE TIMES A DAY active Not Available Not Available No t Available polyethylen e glycol 3350 17 gram/dose oral powder MIX 238 GRAMS WITH 64 OUNCES CLEAR LIQUID, DRINK 8 OUNCES EVERY 15 MINUTES UNTIL FINISHED active Not Available Not Available No t Available neomycin 500 mg tablet TAKE TWO TABLETS AT 1PM, 2PM, AND 10PM THE DAY BEFORE SURGERY. active Not Available Not Available No t Available ondansetron 4 mg disintegrat ing tablet 02/24 completed Not Available Not Available Not Available fluticasone propionate 50 mcg/actuati on nasal spray,suspe nsion SPRAY 2 SPRAYS INTO EACH NOSTRIL ONCE A DAY active Not Available Not Available No t Available doxycycline hyclate 100 mg tablet Take 1 tablet every day by oral route for 30 days. 08/25 completed Not Available Not Available Not Available amoxicillin 875 mg-potassiu m clavulanate 125 mg tablet TAKE 1 TABLET BY MOUTH EVERY 12 HOURS 02/24 completed Not Available Not Available Not Available Ventolin HFA 90 mcg/actuati on aerosol inhaler 11/30 completed Not Available Not Available Not Available neomycin-po lymyxin-hyd rocort 3.5 mg-10,000 unit/mL-1 % ear drops,susp INSTILL 4 DROPS INTO THE EAR(S) EVERY 8 HOURS 08/25 completed Not Available Not Available Not Available Laxative (bisacodyl) 5 mg tablet,sulema yed release TAKE TWO TABS AT 10AM AND 12PM (NOON) THE DAY BEFORE SURGERY active Not Available Not Available No t Available ezetimibe 10 mg tablet TAKE 1 TABLET BY MOUTH EVERY DAY active Not Available Not Available No t Available ciprofloxac in 0.3 %-dexametha sone 0.1 % ear drops,suspe nsion INSTILL 4 DROPS INTO THE AFFECTED EAR(S) EVERY 12 HOURS 08/25 completed Not Available Not Available Not Available fluocinolon e 0.01 % scalp oil and shower cap APPLY THIN LAYER TO DAMP SCALP BY TOPICAL ROUTE MASSAGE WELL AND COVER. LEAVE ON FOR 4 HOURS OR OVERNIGHT THEN WASH OFF 11/30 completed Not Available Not Available Not Available chlorhexidi ne gluconate 0.12 % mouthwash TAKE 15 ML AND SWISH AROUND MOUTH FOR 30 SECONDS THEN SPIT OUT 3 TIMES A DAY active Not Available Not Available No t Available lidocaine (PF) 10 mg/mL (1 %) injection solution In office injection administe red by the provider 09/07 completed [facility]: 0409- [phone]- [phone] Not Available Not Available Not Available Symbicort 160 mcg-4.5 mcg/actuati on HFA aerosol inhaler INHALE 2 PUFFS INTO THE LUNGS TWICE A DAY active Not Available Not Available No t Available sodium,pota ssium,mag sulfates 17.5 gram-3.13 gram-1.6 gram oral soln DRINK 1/2 OF PREP AT 6PM NIGHT BEFORE THEN 1/2 OF PREP 4 HRS PRIOR TO LEAVING HOME FOR PROCEDURE active Not Available Not Available No t Available potassium chloride ER 20 mEq tablet,exte nded release 11/30 completed Not Available Not Available Not Available Vitals Date Recorded Body height Body mass index (BMI) Body weight Body temperature Heart rate Oxygen saturation Oxygen saturation in Arterial blood by Pulse oximetry Systolic blood pressure Diastolic blood pressure Provider Name and Address Organization Details Last Updated DateTime 4 165.1 cm 30.1 kg/m2 15433.2 2 g 97.7 [degF] 82 /min 98 % 98 % 162 mm[Hg] 92 mm[Hg] Shivam Meza RN [facility] [employer] 4 11:05:49 Date Recorded Body height Body mass index (BMI) Body weight Body temperature Heart rate Oxygen saturation Oxygen saturation in Arterial blood by Pulse oximetry Systolic blood pressure Diastolic blood pressure Provider Name and Address Organization Details Last Updated DateTime 3 165.1 cm 29.8 kg/m2 21981.0 3 g 97.6 [degF] 79 /min 96 % 96 % 132 mm[Hg] 80 mm[Hg] Shivam Meza RN [facility] [employer] 3 11:50:54 Date Recorded Body height Body mass index (BMI) Body weight Body temperature Heart rate Oxygen saturation Oxygen saturation in Arterial blood by Pulse oximetry Systolic blood pressure Diastolic blood pressure Provider Name and Address Organization Details Last Updated DateTime 4 165.1 cm 29.5 kg/m2 41882.8 5 g 98.1 [degF] 86 /min 98 % 98 % 130 mm[Hg] 83 mm[Hg] Shivam Meza RN [facility] [employer] [facility] 4 08:51:12 Date Recorded Body height Body mass index (BMI) Body weight Body temperature Heart rate Oxygen saturation Oxygen saturation in Arterial blood by Pulse oximetry Systolic blood pressure Diastolic blood pressure Provider Name and Address Organization Details Last Updated DateTime 4 165.1 cm 30.3 kg/m2 70327.8 1 g 97.8 [degF] 74 /min 98 % 98 % 139 mm[Hg] 83 mm[Hg] Maggy Monahan MA [facility] [employer] 4 15:40:18 Date Recorded Body height Body mass index (BMI) Body weight Body temperature Heart rate Oxygen saturation Oxygen saturation in Arterial blood by Pulse oximetry Systolic blood pressure Diastolic blood pressure Provider Name and Address Organization Details Last Updated DateTime 4 165.1 cm 31.6 kg/m2 11111.5 5 g 97.4 [degF] 78 /min 98 % 98 % 180 mm[Hg] 100 mm[Hg] Shivam Meza RN [facility] [employer] [facility] 4 14:50:35 Social History Question Answer Notes LastModified by Organization Details LastModified Time Tobacco Smoking Status Current Some Day Smoker 1 pack lasts 3 days Torrie Alas MD [address] [place] [address], [address], [facility] [employer] 08/26/2023 11:15:48 Do You Have An Advance Directive? Yes Daughter Aneta Sheppard Is POA [id number] Information not available 08/20/2022 Are You Blind Or Do You Have Difficulty Seeing? No [id number] Information not available 08/20/2022 What Is Your Level Of Caffeine Consumption? Occasional MIGRATION.[id number] Information not available 08/20/2022 How Much Tobacco Do You Chew? None MIGRATION.[id number] Information not available 08/20/2022 In The 14 Days Before Symptom Onset, Have You Had Close Contact With A Laboratory-conf irmed COVID-19 While That Case Was Ill? No MIGRATION.0301 [id number] Information not available 08/20/2022 In The 14 Days Before Symptom Onset, Have You Had Close Contact With A Person Who Is Under Investigation For COVID-19 While That Person Was Ill? No MIGRATION.0301 [id number] Information not available 08/20/2022 Are You Deaf Or Do You Have Serious Difficulty Hearing? No MIGRATION.0301 [id number] Information not available 08/20/2022 What Type Of Diet Are You Following? REGULAR MIGRATION.0301 165476 Information not available 08/20/2022 Which Illicit Or Recreational Drugs Have You Used? NO MIGRATION.0301 [id number] Information not available 08/20/2022 Have There Been Any Changes To Your Family Or Social Situation? Yes MIGRATION.0301 [id number] Information not available 08/20/2022 What Is The Fluoride Status Of Your Home? Unknown MIGRATION.0301 [id number] Information not available 08/20/2022 [facility] MIGR[facility].0301 [id number] Information not available 08/20/2022 What Was The Date Of Your Most Recent Tobacco Screening? 08/26/2023 Information not available 08/26/2023 Do You Have Smoke And Carbon Monoxide Detectors In Your Home? Yes MIGRATION.0301 [id number] Information not available 08/20/2022 How Much Tobacco Do You Smoke? No MIGRATION.0301 [id number] Information not available 08/20/2022 How Many Years Have You Smoked Tobacco? 20 MIGRATION.0301 077961 Information not available 08/20/2022 Do You Have Difficulty Walking Or Climbing Stairs? No MIGRATION.0301 [id number] Information not available 08/20/2022 Do You Have Any Dietary Restrictions? No MIGRATION.0301 247190 Information not available 08/20/2022 Sex: Unknown Functional Status Question Answer Note LastModified by Organizat ion Details LastModified Time Do you or have you ever used any other forms of tobacco or nicotine? No MIGRATION.01707 65923 Information not available 08/20/2022 What is your level of alcohol consumption? Occasional MIGRATION.63837 27432 Information not available 08/20/2022 Do you or have you ever used smokeless tobacco? Never used smokeless tobacco MIGRATION.14035 49216 Information not available 08/20/2022 Do you have transportation difficulties? No MIGRATION.70282 86019 Information not available 08/20/2022 Are you able to walk? [place]WOREST MIGRATION.72635 69957 Information not available 08/20/2022 Do you have difficulty doing errands alone? No MIGRATION.23319 94860 Information not available 08/20/2022 Are you able to care for yourself? Yes MIGRATION.61551 64994 Information not available 08/20/2022 What is your occupation? RETIRED MIGRATION.76360 56019 Information not available 08/20/2022 Do you have difficulty dressing or bathing? No MIGRATION.97362 69141 Information not available 08/20/2022 Do you or have you ever used e-cigarettes or vape? Never used electronic cigarettes MIGRATION.10007 77024 Information not available 08/20/2022 What is your exercise level? Occasional active lifestyle MIGRATION.37895 61679 Information not available 08/20/2022 Mental Status Question Answer Note LastModified by Organizat ion Details LastModified Time Do you feel stressed (tense, restless, nervous, or anxious, or unable to sleep at night)? [id number] MIGRATION.[id number] Information not available 08/20/2022 Do you have difficulty concentrating, remembering or making decisions? No MIGRATION.[id number] 26 Information not available 08/20/2022 Family History Relationship Description Onset Age of this Age Resolved Age Notes LastModified by Organization Details LastModified Time Mother Natural 91 [email or web address] Not available 2023 11:15:01 Medical History Condition Response BLINDNESS N RHEUMATIC FEVER N KIDNEY STONES N BLADDER PROBLEMS N MRSA N OTHER # 1 N POLIO N LUNG DISEASE/DISORDER N RADIATION / CHEMOTHERAPY N COPD N Other # 2 N BLOOD DISEASES N SURGERY N EAR OR HEARING PROBLEMS N MUMPS N FEMALE PROBLEMS / INFECTIONS N BOWEL PROBLEMS N DEPRESSION (INCLUDING POST ) N STROKE/TIA N THYROID DISEASE N ULCERS N BENIGN PROSTATIC HYPERPLASIA N MEASLES N CERVICALGIA N TB SKIN TEST N MYOCARDIAL INFARCTION N PARAPELGIA N OBESITY N GERD/NAUSEA N ANEURYSM N URINARY/BLADDER/KIDNEY PROBLEMS N CORONARY ARTERY DISEASE (CAD) N MENIERE'S DISEASE N ADDICTION CONCERNS N ENDOMETRIOSIS N USE OF BLOOD THINNERS N SKIN PROBLEMS N EMPHYSEMA N GASTROINTESTINAL DISORDER N MUSCLE,JOINT OR BONE PROBLEMS N GASTROINTESTINAL BLEEDING N BLOOD CLOTS N ASTHMA N CATARACTS N ERECTILE DYSFUNCTION N GI PROBLEMS N CHF N Low Testosterone N NEUROPATHY N INFERTILITY N AIDS/HIV N FRACTURES N CHEMOTHERAPY / RADIATION N VISION/EYE PROBLEMS N LIVER DISEASE N MALE HYPOGONADISM N HYPERTENSION N TOURETTE'S N ANXIETY DISORDER N BLOOD TRANSFUSION N ANEMIA/BLOOD DISORDER N CHRONIC EAR INFECTIONS N BRONCHITIS N TUBERCULOSIS N GLAUCOMA N FOOT PROBLEM N DIVERTICULITIS N SLEEP APNEA N CHICKENPOX N ALLERGIES/HAYFEVER N INFECTIOUS DISEASE N PROSTATE N HEART ARRHYTHMIA N INSOMNIA N HIGH CHOLESTEROL / HYPERLIPIDEMIA N EYE PROBLEMS N HYPERTHYROIDISM N EATING DISORDER N EDEMA N CHRONIC PAIN SYNDROME N CONSTIPATION N CAROTID BLOCKAGE N BACK / NECK PROBLEMS N HAVE YOU BEEN HOSPITALIZED OR SEEN IN [facility] IN THE PAST YEAR ? N ATHEROSCLEROSIS N BREAST PROBLEMS N DIALYSIS N ECZEMA N FIBROMYALGIA N OSTEOPOROSIS N ARTHRITIS N NO SIGNIFICANT PAST MEDICAL HISTORY N APPENDICITIS N DIABETES, TYPE N BAD TEETH N HEARTBURN / REFLUX N ADD/ADHD N AUTISM SPECTRUM DISORDER (ASD) N HEPATITIS / LIVER DISEASE N PULMONARY DISEASE N GOUT N SLEEP DISORDER N ALZHEIMER'S DISEASE N PAIN N DEMENTIA N HERPES N SEIZURES/EPILEPSY N HEADACHES/MIGRAINES N VASCULAR DISEASE N PACEMAKER N DIZZINESS N HEART DISEASE/HEART PROBLEMS N KIDNEY DISEASE N SCARLET FEVER N MULTIPLE SCLEROSIS N DEVELOPMENTAL OR BEHAVIORAL DISORDERS N MENTAL DISORDER/ILLNESS N CANCER: SPECIFY N CARDIAC ARRHYTHMIA N PNEUMONIA N ATRIAL FIBRILLATION N Gall Stones N PULMONARY EMBOLISM N AUTOIMMUNE DISEASE N Gynecological History Statement/Question Response How many live births 3 Current Control Method Menopause Breast Problems NO Obstetrics History GPAL:G 3 P 3 0 0 3 Type Value Full Term 3 Living 3 Total 3 Past Encounters Encounter ID Performer Location Encounter Start Date Encounter Closed Date Diagnosis/Indication Diagnosis SNOMED-CT Code Diagnosis ICD10 Code Diagnosis Note [id number] Torrie Alas MD [facility] [address] [place] [address] 12/26/2020 00:00:00 01/18/2021 07:48:16 [id number] Torrie Alas MD [facility] [address] [place] [address] 01/02/2021 00:00:00 01/11/2021 10:04:47 [id number] Torrie Alas MD [facility] [address] [place] [address] 10/10/2021 00:00:00 10/10/2021 12:40:12 [id number] Torrie Alas MD [facility] [place] [address] [place] [address] [address] [place] [place] [address] 12/25/2021 00:00:00 12/25/2021 10:18:02 [id number] Torrie Alas MD [facility] [address] [place] [address] [address] [place] [place] [address] 05/12/2022 00:00:00 05/20/2022 21:59:39 [id number] Torrie Alas MD [facility] [place] [address] [address] [place] [address] [address] [place] [place] [address] 12/11/2022 11:41:18 12/11/2022 13:48:54 Vitamin D deficiency 61107488 E55.9 Essential hypertension 02690310 I10 Hyperlipidemia 43209545 E78.5 Prediabetes 822026364 R7 3.03 Screening for malignant neoplasm of colon 876484187 Z12.11 [id number] Torrie Alas MD [facility] [place] [address] [place] [address] 08/26/2023 10:58:06 08/26/2023 11:45:53 Adult health examination 183775328 Z00.00 DEXA normal 11/04/18 repeat 2023Mammog ruy order writtendec lines all vaccinesco loguard negative 02/03/23-re peat heck labscut back on smoking-sm oking 1 pack every 3 days Thyroid nodule 585802312 E04.1 bx 10/08/22: benign follicular nodule Postmenopausal state 764 84266 Z78.0 Essential hypertension 89487149 I10 stable Hyperlipidemia 26152035 E78.5 stable Prediabetes 463448148 R7 3.03 stable Vitamin D deficiency 347 01688 E55.9 Hidradenit is suppurativa 13748655 L73.2 call/retur n if no improvemen t in 1-2 days or sooner if neededrevi ewed s/s that warrant urgent/jackie rgent eval in meantime [id number] BISI Finney [facility] [address] [place] [address] 01/04/2024 08:46:47 01/04/2024 09:08:48 Vaginal discharge 887584322 N89.8 [id number] BISI Finney [address] [address] 02/25/2024 15:26:35 02/25/2024 16:42:38 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 Diverticul itis of sigmoid colon 989680663 K57.32 Patient following GI and [employer] per hospital discharge recommenda tions. Patient will contact office as needed. [id number] BISI Finney [facility] [address] [address] 03/31/2024 14:37:41 03/31/2024 15:27:33 Muscle pain 77657477 M79.10 Health Concerns Section Related Observation LastModified by Organization Detai ls LastModified Time None Recorded Concern Status LastModified by Organization Details LastModified Time None Recorded Advance Directives Directive Y: Daughter Aneta Sheppard is POA Payers Insurance Date Sequence Insurance Name Policy Number Policy Patrick Covered Member ID Patrick Member ID Guarantor Name 03/30/2024 1 [facility] (MEDICARE REPLACEMENT/A DVANTAGE - HMO) [id number] Jaida Sheppard [id number] Jaida Sheppard 03/30/2024 2 [place] DEPARTMENT [place] PUBLIC AID Jaida Sheppard [id number] Jaida Sheppard 02/25/2024 1 [facility] (MEDICARE REPLACEMENT/A DVANTAGE - PPO) [id number] Jaida Sheppard [id number] Jaida Sheppard Notes Date Note Type Note Provider Name and Address Organization Details Recorded Time 12/11/2022 text/html here to f/u, no questions or concerns Torrie Alas MD [address] [place] [address], [address], [address], [facility] Aniika [facility] [employer] [facility] 12/19/2022 14:05:22 08/26/2023 text/html Here for wellnes s exam, she has recurrent boils on and under breasts that can be painful and drain Torrie Alas MD [address], [facility] [address], [place], [address], [facility] [employer] [facility] [employer] [facility] 09/17/2023 15:51:18 01/04/2024 text/html Patient is a 73 year old female that presents to the office for a hospital follow up. Patient was in [facility] for an abscess of the sigmoid colon due to diverticulitis. Patient reports they did several surgeries to drain the abscess. patient reports she was instructed to establish care with]a BOOM STICK WORKER for the abnormal vaginal discharge she has been having. Patient denies all other sick symptoms at this time including chest pain and shortness of breath. BISI Finney [address] [facility] [address], [facility] [address], [place], [address], [employer] [facility] [employer] [facility] 01/04/2024 09:11:32 02/25/2024 text/html Patient is a 73 year old female that presents to the office for a follow up. Patient has had extensive medical diagnosis and treatment since August. Patient reports she was diagnosed with shingles on the left side of her face in August. Patient reports blisters were horrible and last for 12 weeks. Patient reports she went to twice and ER for once due to shingles. Patient reports she still has bumps from the rash around her left eye that itch when she sweats. Patient reports the left side of her face into her neck and arm still burn. Patient is not currently taking any medications for Shingles related symptoms at this time.Patient reports she received the Shingles vaccine a couple months ago and has had left arm pain ever since. Patient reports this pain intensified a few weeks ago when she fell out of her shower. Patient is unsure how she landed or if her arm was stretched out. Patient reports the pain is now to the bone and she never has relief. Patient was not evaluated after fall. Denies LOC or hitting her head. Patient reports at the end of October she went to [place] ER for abdominal pain and vomiting. Patient was diagnosed with diverticulitis of sigmoid colon with perisigmoid abscess and fistula of sigmoid colon.Patient reports she was in the hospital for 3 weeks. Patient had two surgeries during this time to drain fluid in colon. Since discharge patient has been following up with numerous doctors. Patient reports she recently saw BOOM STICK WORKER that she was referred to for the fisula as she has feces coming out of her vagina. Patient reports the BOOM STICK WORKER was confident she could repair it however she wanted to see if there was a specialist that was in insurance network for the procedure. Patient denies chest pain and shortness of breath, nausea vomiting and diarrhea. Patient reports constant fatigue and just wanting to get better. BISI Finney [address], [address], [place], [address], [employer] 02/26/2024 00:32:08 03/31/2024 text/html Patient is a 73 year old female that presents to the office for left sided neck pain. Patient reports pain since she fell out of the shower a couple months ago. Patient denies any treatment of symptoms prior to arrival. BISI Finney [address], [place], [address], [employer] 03/31/2024 17:05:21 OBGyn Episode No OBEpisode recorded.
--- OUTSIDE RECORDS SUMMARY | 2024-12-03 08:06 | XMS_ITS | Clinical Summary ---
Author Organization [facility] Address [address] [place] [address] Care Team Providers Care Electrician Journeyman Wireman Name Role Phone Unavailable Primary Care Provider Unavailabl e Source Comments [facility],non-owned Affiliates and Associated Physician Practices is amultiple site organization consisting of ambulatory clinics and hospital sitesin [place], [place], [place] and [place]. This disclosure is being madepursuant to the Care Everywhere program and may not contain all information available regarding this patient. Last updated 18.[facility] Allergies No known active allergies Medications * Be aware that medications may not be up to date on this document. Alwaysverify current medications with the patient. AmLODIPine Besylate (NORVASC PO) Active ATORVASTATIN CALCIUM PO Active Multiple Vitamins-Minerals (CENTRUM PO) Active albuterol HFA (PROVENTIL;VENTOL IN;PROAIR) 108 (90 BASE) MCG/ACT inhalerIndication s:Acute bronchitis with asthma with acute exacerbation (HCC) Inhale 2 puffs by mouth every 4 hours as needed 1 Inhaler 9 Active benzonatate (TESSALON) 100 MG capsuleIndication s:Acute bronchitis with asthma with acute exacerbation (HCC) Take 1 capsule by mouth 3 times daily as needed for Cough 30 capsule 9 Active ciprofloxacin-dex amethasone (CIPRODEX) 0.3-0.1 % otic suspensionIndicat ions:Other infective acute otitis externa of both ears Instill 4 drops into both ears 2 times daily Shake well before using. 7.5 mL 9 Active Active Problems No known active problems Social History Tobacco Use Types Packs/Day Years Used Date Smoking Tobacco: Every Day Smokeless Tobacco: Never Tobacco Cessation:Ready to Q uit: No; Counseling Given: No Comments No Sex and Gender Information Value Date Recorded Sex Assigned at Not on file Legal Sex Female 4:46 PM GAMING CAGE WORKER Gender Identity Not on file Sexual Orientation Not on file Last Filed Vital Signs Vital Sign Reading Time Taken Comments Blood Pressure 132/88 07/27/2018 10:15 AM GAMING CAGE WORKER Pulse 82 07/27/2018 10:15 AM GAMING CAGE WORKER Temperature 36.9 C (98.5 F) 07/27/2018 10:15 AM GAMING CAGE WORKER Respiratory Rate 16 07/27/2018 10:15 AM GAMING CAGE WORKER Oxygen Saturation 98% 07/27/2018 10:15 AM GAMING CAGE WORKER Inhaled Oxygen Concentration - - Weight 83.9 kg (185 lb) 07/27/2018 10:15 AM GAMING CAGE WORKER Height 166.4 cm (5' 5.5) 07/27/2018 10:15 AM CS T Body Mass Index 30.32 07/27/2018 10:15 AM GAMING CAGE WORKER Plan of Treatment Health Maintenance Due Date Last Done Comments BONE DENSITY TESTING 1950 COLOGUARD (AGES 45-75) - COL ON CA SCREENING 1950 COLON MONITORING 1950 COLONOSCOPY - COLON CA SCREENING 1950 CT COLONOGRAPHY - COLON CA SCREENING 1950 Colorectal Cancer Screening 1950 FIT - COLON CA SCREENING 1950 FLEX SIG - COLON CA SCREENING 1950 MAMMOGRAM 1950 HEPATITIS C SCREENING 06/07/1970 DTAP/TDAP/TD VACCINES (1 - Tdap) 1971 PNEUMOCOCCAL VACCINE 50+ (1 of 1 - PCV) 2002 ZOSTER VACCINE (1 of 2) 2002 SCREENING FOR DIABETES 11/19/2017 COVID-19 VACCINE (1 - 2023-2 5 season) 2024 DEPRESSION SCREENING 06/22/2024 INFLUENZA VACCINE (Season Ended) 2025 Respiratory Syncytial Virus (RSV) Vaccine Pt: or over 60 yrs (1 - 1-dose 75+ series) 2027 HEPATITIS B VACCINE Aged Out No longe r eligible based on patient's age to complete this topic HIB VACCINE Aged Out No longer eligi ble based on patient's age to complete this topic HPV VACCINE Aged Out No longer eligi ble based on patient's age to complete this topic MENINGOCOCCAL (Group B) VACC INE SHARED DECISION-MAKING Aged Out No longer eligibl e based on patient's age to complete this topic MENINGOCOCCAL GROUPS A/C/Y/W VACCINE Aged Out No longer eligible b ased on patient's age to complete this topic Insurance [place] ADV MEDICAID - OUT OF STATE
--- OUTSIDE RECORDS SUMMARY | 2024-12-03 08:06 | XMS_ITS | Clinical Summary ---
Author Organization [facility] Address [facility] [place] [address] Care Team Providers Care Certified Juvenile Probation Officer Name Role Phone Haim Stephens MD Unavailable [phone] Deborah Whitten NP Primary Care Provider Allergies No known active allergies Medications latanoprost (XALATAN) 0.005 % ophthalmic solution 1 drop nightly 01/11/2024 Active omeprazole (PriLOSEC) 40 mg capsule Take 1 tablet by mouth daily Active ezetimibe (ZETIA) 10 mg tablet Take 1 tablet (10 mg total) by mouth daily Active amLODIPine (NORVASC) 10 mg tablet Take 1 tablet (10 mg total) by mouth daily Active gabapentin (NEURONTIN) 600 mg tablet Take 1 tablet (600 mg total) by mouth 3 (three) times a day Active methocarbamoL (ROBAXIN) 500 mg tabletIndicatio ns:Shingles/ face Take 1 tablet (500 mg total) by mouth 2 (two) times a day as needed for muscle spasms Active acetaminophen 500 mg capsuleIndicati ons:Pain Take 2 capsules (1,000 mg total) by mouth every 6 (six) hours 06/03/2024 Active ibuprofen (ADVIL,MOTRIN) 600 mg tablet Take 1 tablet (600 mg total) by mouth 3 (three) times a day 30 tablet 06/03/2024 Active traMADoL (ULTRAM) 50 mg tablet Take 1 tablet (50 mg total) by mouth every 6 (six) hours as needed for pain 15 tablet 06/03/2024 Active Active Problems Problem Noted Date Diagnosed Date Colovaginal fistula 03/25/2024 Surgical History Surgery Date Site/Laterality Comments HYSTERECTOMY ABSCESS DRAINAGE Bilateral excision of abscess in both axillax COLONOSCOPY 05/02/2024 COLON SURGERY 05/27/2024 Laparoscopic hand assisted sigmoid resection with takedown of colovaginal fistula, complete mobilization of the splenic flexure, end-to-end colorectal anastomosis, primary repair of vaginal cuff, omental pedicle flap to the pelvis, biopsy of proximal jejunal serosal implant with preop stents Medical History Medical History Date Comments Anxiety Colovaginal fistula Hypertension Asthma Chronic kidney disease GERD (gastroesophageal reflux disease) Family History Medical History Relation Name Comments No Known Problems Father No Known Problems Mother Anesthesia problems Neg Hx Relation Name Status Comments Father Mother Social History Tobacco Use Types Packs/Day Years Used Date Smoking Tobacco: Former Cigarettes Q uit: 2023 Tobacco Cessation:Counseling Given: Not Answered AUDIT-C Answer Date Recorded Q1: How often do you have a drink containing alc ohol? Monthly or less 08/10/2024 Q2: How many drinks containi ng alcohol do you have on a typical day when you are drinking? 1 or 2 08/10/2024 Q3: How often do you have si x or more drinks on one occasion? Never 08/10/2024 Personal Safety Answer Date Recorded Have you ever been in or are you currently in a harmful physical or emotional relationship or is someone making you feel afraid or unsafe? Denies 05/27/2024 Comments No Sex and Gender Information Value Date Recorded Sex Assigned at Not on file Legal Sex Female 11:56 AM CDT Gender Identity Not on file Sexual Orientation Not on file Obstetrics History Last Filed Vital Signs Vital Sign Reading Time Taken Comments Blood Pressure 168/96 08/10/2024 8:49 AM CANAL SUPERINTENDENT Pulse 82 08/10/2024 8:49 AM CANAL SUPERINTENDENT Temperature 36.2 C (97.1 F) 06/03/2024 7:55 AM CANAL SUPERINTENDENT Respiratory Rate 16 06/03/2024 7:55 AM CANAL SUPERINTENDENT Oxygen Saturation 99% 08/10/2024 8:49 AM CANAL SUPERINTENDENT Inhaled Oxygen Concentration - - Weight 88 kg (194 lb) 08/10/2024 8:49 AM CANAL SUPERINTENDENT Height 165.1 cm (5' 5) 05/30/2024 9:25 AM CANAL SUPERINTENDENT Body Mass Index 32.28 05/30/2024 9:25 AM CANAL SUPERINTENDENT Plan of Treatment Health Maintenance Due Date Last Done Comments Breast Cancer Screening-Mammogram 1950 Depression Screening 1950 Hepatitis C Screening 1952 Osteoporosis Screening-Bone Density Scan 1952 DTaP/Tdap/Td Vaccine (1 - Tdap) 1963 Hepatitis B Screening 1970 Pneumococcal vaccine 65+ (1 of 1 - PCV) 2002 Well Visit 65+ 2017 Zoster Vaccine (2 of 2) 03/11/2024 01/15/2024 Influenza Vaccine (Season Ended) 2025 Fall Risk Assessment 06/03/2025 06/03/2024 Colon Cancer Screening-Colonoscopy 05/02/20342023 Procedures Procedure Name Priority Date/Time Associated Diagnosis Comments COLONOSCOPY 05/02/2024 11:40 AM CANAL SUPERINTENDENT from Last 3 Months or Most Recently Relevant to Health Maintenance Results * Colonoscopy (05/02/2024 11:40 AM CANAL SUPERINTENDENT) Anatomical Region Laterality Modality Other Narrative Procedure Note Maco Bird MD - 05/02/2024 11:40 AM CST ENDOSCOPY LAB Patient Name: Juan Sheppard Procedure Date: 05/02/2024 11:40AM Date of : 1950 Admit Type: Outpatient Age: 73 Gender: Female Attending MD: Maco Bird M.D. Room: [facility] ENDOSCOPY ROOM 02 Note Status: Finalized Procedure: Colonoscopy Indications: Screening for colorectal malignant neoplasm, Thisis the patient's first colonoscopy, colovaginalfistula Providers: Maco Bird M.D. Referring MD: Haim Stephens M.D. Medicines: Monitored Anesthesia Care Complications: No immediate complications. Estimated Blood Loss: Estimated blood loss: none. Procedure: Pre-Anesthesia Assessment: - Immediately prior to administration ofmedications, the patient was re-assessed for adequacy to receive sedatives. The benefits, risks and alternatives of theprocedure and sedation were discussed and informed consentwas obtained. All questions were answered. Please referto the signed informed consent document in the medical record. The scope was passed under direct vision.The [id number] was introduced through the anusand advanced to the cecum, identified by appendiceal orifice and ileocecal valve. The colonoscopy was performed without difficulty. The patient tolerated the procedure well. The quality of the bowel preparation was evaluated using the BBPS (BostonBowel Preparation Scale) with scores of: Right Colon = 2 (minor amount of residual staining, small fragmentsof stool and/or opaque liquid, but mucosa seen well), Transverse Colon = 3 (entire mucosa seen well withno residual staining, small fragments of stool oropaque liquid) and Left Colon = 2 (minor amount ofresidual staining, small fragments of stool and/or opaque liquid, but mucosa seen well). The total BBPS score equals 7. The quality of the bowel preparation was good. The bowel preparation used was SUPREP viasplit dose instruction. Findings: The perianal and digital rectal examinations were normal. Multiple diverticula were found in the sigmoid colon. Three sessile polyps were found in the sigmoid colon and descending colon. The polyps were 2 to 6 mm in size. These polyps were removedwith a cold snare. Resection and retrieval were complete. The exam was otherwise without abnormality. Impression: - Diverticulosis in the sigmoid colon. - Three 2 to 6 mm polyps in the sigmoid colon andin the descending colon, removed with a cold snare. Resected and retrieved. - The examination was otherwise normal. Recommendation: - Await pathology results. Proceed to OR forsigmoid resection, takedown colovaginal fistula. - Repeat colonoscopy in 5 years for surveillance. Maco Bird MD Maco Bird M.D. 05/02/2024 12:52:29 PM Number of Addenda: 0 Note Initiated On: 05/02/2024 11:40 AM Maco Bird MD ENDOSCOPY PROCEDURES Fi nal Result from Last 3 Months or Most Recently Relevant to Health Maintenance Insurance [facility] MEDICARE ADVANTAGE IDMD [facility] MEDICARE ADVANTAGE IDPA Advance Directives For more information, please contact: [phone] * Full Code (Latest Code Status on File) Date Activated Date Inactivated Comments 05/27/2024 4:41 PM 06/03/2024 2:24 PM * Full Code Date Activated Date Inactivated Comments 05/02/2024 10:51 AM 05/02/2024 5:46 PM Care Teams Certified Juvenile Probation Officer Relationship Specialty Start Date End Date Deborah Whitten NP [address] [place] [address] [place] [id number] PCP - General Family Medicine 03/10/24 Haim Stephens MD [address] [place] [address] Obstetrics and Gynecology 03/04/24
--- OUTSIDE RECORDS SUMMARY | 2024-12-03 08:06 | XMS_ITS | Referral Summary ---
Author Organization [facility] Address [address] [place] [address] Care Team Providers Care Data Analysis Intern Name Role Phone Haim Stephens MD Unavailable [phone] Deborah Whitten NP Primary Care Provider [...] Noted Date Diagnosed Date Colovaginal fistula 03/25/2024 Social History Tobacco Use Types Packs/Day Years [...] Comments Blood Pressure 168/96 08/10/2024 8:49 AM WAITER/WAITRESS BAR Pulse 82 08/10/2024 8:49 AM WAITER/WAITRESS BAR Temperature 36.2 C (97.1 F) 06/03/2024 7:55 AM WAITER/WAITRESS BAR Respiratory Rate 16 06/03/2024 7:55 AM WAITER/WAITRESS BAR Oxygen Saturation 99% 08/10/2024 8:49 AM WAITER/WAITRESS BAR Inhaled Oxygen Concentration - - Weight 88 kg (194 lb) 08/10/2024 8:49 AM WAITER/WAITRESS BAR Height 165.1 cm (5' 5) 05/30/2024 9:25 AM WAITER/WAITRESS BAR Body Mass Index 32.28 05/30/2024 9:25 AM WAITER/WAITRESS BAR Plan of Treatment Not on file Procedures Procedure Name Priority Date/Time Associated Diagnosis Comments COLONOSCOPY 05/02/2024 11:40 AM WAITER/WAITRESS BAR from Last 3 Months or Most Recently Relevant to Health Maintenance Results * Colonoscopy (05/02/2024 11:40 AM WAITER/WAITRESS BAR) Anatomical Region Laterality Modality Other Narrative Procedure Note Maco Bird MD - 05/02/2024 11:40 AM CST ENDOSCOPY LAB Patient Name: Juan Sheppard Procedure Date: 05/02/2024 11:40AM Date of : 1950 Admit Type: Outpatient Age: 73 Gender: Female Attending MD: Maco Bird M.D. Room: [facility] ENDOSCOPY ROOM 02 Note Status: Finalized [...] The scope was passed under direct vision.The [id number] was introduced through the anusand advanced to [...] 0 Note Initiated On: 05/02/2024 11:40 AM us Maco Bird MD ENDOSCOPY PROCEDURES Fi nal Result from Last 3 Months or Most Recently Relevant to Health Maintenance Insurance [facility] MEDICARE ADVANTAGE [facility] MED[facility] Address: [address] [address] [place] [address] IDPA [facility] MEDICARE ADVANTAGE IDPA Advance Directives For more information, please contact: [phone] * Full Code (Latest Code Status on File) Date Activated Date Inactivated Comments 05/27/2024 4:41 PM 06/03/2024 2:24 PM * Full Code Date Activated Date Inactivated Comments 05/02/2024 10:51 AM 05/02/2024 5:46 PM Care Teams Data Analysis Intern Relationship Specialty Start Date End Date Deborah Whitten NP [address] [place] [address] [place] [address] PCP - General Family Medicine 03/10/24 Haim Stephens MD [address] [place] [address] Obstetrics and Gynecology 03/04/24
== END 2024-12-03 08:02 | disposition home or self-care (01) ==
PROVIDERS: PCP Internal Medicine; Visit Provider Internal Medicine
DX: R10.9 Unspecified abdominal pain (principal); I10 Essential (primary) hypertension; M47.896 Other spondylosis, lumbar region; K76.0 Fatty (change of) liver, not elsewhere classified
CPT/HCPCS: 72100; 76700

== ENCOUNTER 2024-12-26 10:00 | Outpatient (CLI) | payer MEDICARE, MEDICAID, SELFPAY ==
--- NOTE | 2024-12-26 | ECHO_ITS ---
Patient Info Name: Kerri Sheppard Age: 74 years : 1950 Gender: Female Ht: 65 in Wt: 203 lbs BSA: 2.09 m2 HR: 55 bpm BP: 142 / 91 mmHg Technical Quality: Good Exam Date: 12/26/2024 10:24 AM Patient Status: O Admit Date: 12/26/2024 Exam Type: CA echo doppler color flow Complete two-dimensional, color flow and Doppler transthoracic echocardiogram is performed. Watch Crystal Molder: Chante Berg Attending Provider: Fabricio Miller Summary 1. Complete two-dimensional, color flow and Doppler transthoracic echocardiogram is performed. 2. Left ventricular systolic function is normal, estimated at 60-65. 3. There is mildly increased left ventricular wall thickness. 4. The left ventricular diastolic function is grade I diastolic dysfunction. 5. There is mild tricuspid valve regurgitation. 6. No pulmonary hypertension, estimated pulmonary arterial systolic pressure is 28 mmHg. Left Ventricle Left ventricular chamber dimension is normal. Left ventricular systolic function is normal, estimated at 60-65. There is mildly increased left ventricular wall thickness. Left ventricular septal wall motion is normal. The left ventricular diastolic function is grade I diastolic dysfunction. Right Ventricle Right ventricular chamber dimension is normal. Right ventricular systolic function is normal. Left Atria Left atrial chamber dimension is normal. Right Atria Right atrial chamber dimension is normal. Aortic Valve The aortic valve is trileaflet. There is no aortic valve sclerosis. There is no aortic valve stenosis. There is no aortic valve regurgitation. Pulmonic Valve The pulmonic valve is normal. There is no pulmonic valve stenosis. There is no pulmonic regurgitation. Mitral Valve The mitral valve has normal leaflets. There is no mitral valve stenosis. There is no mitral valve regurgitation. Tricuspid Valve The tricuspid valve leaflets are normal. There is no significant tricuspid valve stenosis. There is mild tricuspid valve regurgitation. No pulmonary hypertension, estimated pulmonary arterial systolic pressure is 28 mmHg. Pericardium/Pleural The pericardium appears normal. There is no pericardial effusion. Inferior Vena Cava Normal inferior vena cava with >50% collapse upon inspiration consistent with normal right atrial pressure, 10 mmHg. Aorta The aortic root size at the sinus of Valsalva is normal. The prox ascending aorta size is normal. Left Ventricular Outflow Tract Name Value Normal LVOT 2D LVOT Diameter 2.0 cm LVOT Doppler LVOT Peak Velocity 113 cm/s LVOT Peak Gradient 5 mmHg LVOT Mean Gradient 3 mmHg LVOT VTI 26 cm LVOT VTI/AV VTI Ratio 0.9 LVOT Stroke Volume 84 ml LVOT CO 4.6 l/min LVOT CI 2.2 l/min/m2 Pulmonic Valve Name Value Normal RVOT Doppler RVOT Peak Velocity 55 cm/s RVOT Peak Gradient 1 mmHg PV Doppler PV Peak Velocity 68 cm/s PV Peak Gradient 2 mmHg Mitral Valve Name Value Normal MV Diastolic Function MV E Peak Velocity 76 cm/s MV A Peak Velocity 96 cm/s MV E/A 0.8 MV Decel Time (PW) 208 ms Tricuspid Valve Name Value Normal TV Regurgitation Doppler TR Peak Velocity 212 cm/s TR Peak Gradient 15 mmHg Estimated PAP/RSVP RA Pressure 10 mmHg <=5 PA Systolic Pressure 28 mmHg <36 RV Systolic Pressure 28 mmHg <36 Aorta Name Value Normal Ascending Aorta Ao Root Diameter (MM) 3.6 cm Ao Root Diam Index (MM) 1.7 cm/m2 Aortic Valve Name Value Normal AV Doppler AV Peak Velocity 152 cm/s AV Peak Gradient 9 mmHg AV Mean Gradient 4 mmHg AV VTI 29 cm AV Area (Cont Eq VTI) 2.9 cm2 >=3.0 AV Area (Cont Eq Max) 2.4 cm2 AV DI (Max) 0.74 AV Regurgitation 2D LVOT Area 3.3 cm2 Ventricles Name Value Normal LV Dimensions 2D/MM IVS Diastolic Thickness (2D) 1.1 cm 0.6-1.0 IVS Diastole Thickness (MM) 1.2 cm 0.6-0.9 LVID Diastole (2D) 4.7 cm 3.8-5.2 LVID Diastole (MM) 6.2 cm 3.8-5.2 LVIW Diastolic Thickness (2D) 1.1 cm 0.6-0.9 LVIW Diastolic Thickness (MM) 0.8 cm 0.6-0.9 LVID Systole (2D) 3.1 cm 2.2-3.5 LVID Systole (MM) 3.3 cm 2.2-3.5 LVOT Diameter 2.0 cm LV Mass (2D Cubed) 196.35 g 67.00-162.00 LV Mass Index (2D Cubed) 94 g/m2 43-95 Relative Wall Thickness (2D) 0.48 <=0.42 LV Mass (MM Cubed) 249.53 g 67.00-162.00 LV Mass Index (MM Cubed) 119 g/m2 43-95 Relative Wall Thickness (MM) 0.25 LV Fractional Shortening/Ejection Fraction 2D/MM LV Fractional Shortening (2D) 33 % 27-45 LV Fractional Shortening (MM) 47 % 27-45 LV EF (MM Teichholz) 77 % LV EF (2D Teichholz) 62 % LV Diastolic Volume (4C MOD) 72 ml LV EF (4C MOD) 68 % LV Diastolic Volume (2C MOD) 87 ml LV EF (2C MOD) 72 % LV Diastolic Volume (BP MOD) 79 ml 46-106 LV Diastolic Volume Index (BP MOD) 38 ml/m2 29-61 LV Systolic Volume (BP MOD) 24 ml 14-42 LV Systolic Volume Index (BP MOD) 11 ml/m2 8-24 LV EF (BP MOD) 70 % 54-74 LV Diastolic Length (4C) 7.9 cm LV Systolic Length (4C) 6.3 cm LV Stroke Volume (4C MOD) 49 ml Atria Name Value Normal LA Dimensions LA Dimension (MM) 3.0 cm 2.7-3.8 LA Volume (4C A-L) 30 ml LA Volume (BP A-L) 34 ml RA Dimensions RA Systolic Major [place] Length (4C) 3.9 cm 2.2-2.8 RA Area (4C) 9.7 cm2 <=18.0 Report Signatures
--- OUTSIDE RECORDS SUMMARY | 2024-12-26 10:09 | XMS_ITS | Referral Summary ---
Author Organization [facility] Address [address] [place] [address] Care Team Providers Care Animal Pathologist Name Role Phone Haim Stephens MD Unavailable [phone] Deborah Whitten NP Primary Care Provider [...] Comments Blood Pressure 168/96 08/10/2024 8:49 AM SODIUM CHLORITE OPERATOR Pulse 82 08/10/2024 8:49 AM SODIUM CHLORITE OPERATOR Temperature 36.2 C (97.1 F) 06/03/2024 7:55 AM SODIUM CHLORITE OPERATOR Respiratory Rate 16 06/03/2024 7:55 AM SODIUM CHLORITE OPERATOR Oxygen Saturation 99% 08/10/2024 8:49 AM SODIUM CHLORITE OPERATOR Inhaled Oxygen Concentration - - Weight 88 kg (194 lb) 08/10/2024 8:49 AM SODIUM CHLORITE OPERATOR Height 165.1 cm (5' 5) 05/30/2024 9:25 AM SODIUM CHLORITE OPERATOR Body Mass Index 32.28 05/30/2024 9:25 AM SODIUM CHLORITE OPERATOR Plan of Treatment Not on file Procedures Procedure Name Priority Date/Time Associated Diagnosis Comments COLONOSCOPY 05/02/2024 11:40 AM SODIUM CHLORITE OPERATOR from Last 3 Months or Most Recently Relevant to Health Maintenance Results * Colonoscopy (05/02/2024 11:40 AM SODIUM CHLORITE OPERATOR) Anatomical Region Laterality Modality Other Narrative Procedure Note Maco Bird MD - 05/02/2024 11:40 AM CST ENDOSCOPY LAB Patient Name: Juan Sheppard Procedure Date: 05/02/2024 11:40AM Date of : 1950 Admit Type: Outpatient Age: 73 Gender: Female Attending MD: Maco Bird M.D. Room: [facility] ENDOSCOPY ROOM 02 Note Status: Finalized Procedure: [...] The scope was passed under direct vision.The [id number] was introduced through the anusand advanced to [...] Most Recently Relevant to Health Maintenance Insurance [facility] MEDICARE ADVANTAGE IDPA [facility] MEDICARE ADVANTAGE IDPA Advance Directives For more information, please contact: [phone] * Full Code (Latest Code Status on File) Date Activated Date Inactivated Comments 05/27/2024 4:41 PM 06/03/2024 2:24 PM * Full Code Date Activated Date Inactivated Comments 05/02/2024 10:51 AM 05/02/2024 5:46 PM Care Teams Animal Pathologist Relationship Specialty Start Date End Date Deborah Whitten NP [address] [place] [address] [place] [address] PCP - General Family Medicine 03/10/24 Haim Stephens MD [address] [place] [address] Obstetrics and Gynecology 03/04/24
--- OUTSIDE RECORDS SUMMARY | 2024-12-26 10:09 | XMS_ITS | Clinical Summary ---
Author Organization [facility] Address [address] [place] [address] Care Team Providers Care Floor Helper Name Role Phone Unavailable Primary Care Provider Unavailabl e Source Comments [facility],non-owned Affiliates and Associated Physician Practices is amultiple site organization consisting of ambulatory clinics and hospital sitesin [place], [place], [place] and [place]. This disclosure is being madepursuant to the Care Everywhere program and may not contain all information available regarding this patient. Last updated 18.[facility] Allergies No known active allergies Medications * [...] on file Legal Sex Female 4:46 PM BELL RINGER Gender Identity Not on file Sexual Orientation Not on file Last Filed Vital Signs Vital Sign Reading Time Taken Comments Blood Pressure 132/88 07/27/2018 10:15 AM BELL RINGER Pulse 82 07/27/2018 10:15 AM BELL RINGER Temperature 36.9 C (98.5 F) 07/27/2018 10:15 AM BELL RINGER Respiratory Rate 16 07/27/2018 10:15 AM BELL RINGER Oxygen Saturation 98% 07/27/2018 10:15 AM BELL RINGER Inhaled Oxygen Concentration - - Weight 83.9 kg (185 lb) 07/27/2018 10:15 AM BELL RINGER Height 166.4 cm (5' 5.5) 07/27/2018 10:15 AM CS T Body Mass Index 30.32 07/27/2018 10:15 AM BELL RINGER Plan of Treatment Health Maintenance Due Date [...]
--- OUTSIDE RECORDS SUMMARY | 2024-12-26 10:09 | XMS_ITS | Clinical Summary ---
Author Organization [facility] Address [place] [address] Care Team Providers Care Chief Strategy Officer Name Role Phone Haim Stephens MD Unavailable [phone] Deborah Whitten NP Primary Care Provider [phone] Allergies No known active allergies Medications latanoprost [...] Comments Blood Pressure 168/96 08/10/2024 8:49 AM SERVICE CREW LEADER Pulse 82 08/10/2024 8:49 AM SERVICE CREW LEADER Temperature 36.2 C (97.1 F) 06/03/2024 7:55 AM SERVICE CREW LEADER Respiratory Rate 16 06/03/2024 7:55 AM SERVICE CREW LEADER Oxygen Saturation 99% 08/10/2024 8:49 AM SERVICE CREW LEADER Inhaled Oxygen Concentration - - Weight 88 kg (194 lb) 08/10/2024 8:49 AM SERVICE CREW LEADER Height 165.1 cm (5' 5) 05/30/2024 9:25 AM SERVICE CREW LEADER Body Mass Index 32.28 05/30/2024 9:25 AM SERVICE CREW LEADER Plan of Treatment Health Maintenance Due Date [...] Associated Diagnosis Comments COLONOSCOPY 05/02/2024 11:40 AM SERVICE CREW LEADER from Last 3 Months or Most Recently Relevant to Health Maintenance Results * Colonoscopy (05/02/2024 11:40 AM SERVICE CREW LEADER) Anatomical Region Laterality Modality Other Narrative Procedure Note Maco Bird MD - 05/02/2024 11:40 AM CST ENDOSCOPY LAB Patient Name: Juan Sheppard Procedure Date: 05/02/2024 11:40AM Date of : 1950 Admit Type: Outpatient Age: 73 Gender: Female Attending MD: Maco Bird M.D. Room: [facility] ENDOSCOPY ROOM 02 Note Status: Finalized [...] The scope was passed under direct vision.The [id number] was introduced through the anusand advanced to [...] Most Recently Relevant to Health Maintenance Insurance [facility] MEDICARE ADVANTAGE [facility] Address: [address] [address] [place] [address] IDOH [facility] MEDICARE ADVANTAGE [facility] Address: [address] [address] [place] [address] IDPA Advance Directives For more information, please contact: [phone] * Full Code (Latest Code Status on File) Date Activated Date Inactivated Comments 05/27/2024 4:41 PM 06/03/2024 2:24 PM * Full Code Date Activated Date Inactivated Comments 05/02/2024 10:51 AM 05/02/2024 5:46 PM Care Teams Chief Strategy Officer Relationship Specialty Start Date End Date Deborah Whitten NP [address] [place] [address] [place] [address] PCP - General Family Medicine 03/10/24 Haim Stephens MD [address] [place] [address] Obstetrics and Gynecology 03/04/24
== END 2024-12-26 10:01 | disposition home or self-care (01) ==
PROVIDERS: PCP Internal Medicine; Visit Provider Internal Medicine
DX: I10 Essential (primary) hypertension (principal)
CPT/HCPCS: 93306

== ENCOUNTER 2025-01-05 15:02 | Outpatient (CLI) | payer MEDICARE, MEDICAID, SELFPAY ==
--- NOTE | ~2025-01-05 | MR_ITS ---
MRI of the abdomen: Clinical indication: Hepatic mass versus area of fatty sparing. Technique: Coronal SSFSE ARC, WATER:coronal LAVA-FLEX, Coronal 2D FIESTA FatSat, Axial SSFSE BH ARC, Axial 3D DualEcho BH, Axial SSFSE-IR, Axial DWI b=500, Axial 2D FIESTA FatSat, pre and dynamic postco ntrast Axial LAVA ARC, postcontrast Coronal In and Opposed phase LAVA FLEX. Following intravenous adm inistration of 19 cc MultiHance gadolinium, T1-weighted fat-sat imaging was performed in the axial an d coronal planes. Findings: Gallbladder is unremarkable. The common bile duct is normal in course and caliber. No filli ng defects are seen within the CBD. No evidence of intrahepatic biliary ductal dilatation. The pancre atic duct is normal in size. Diffuse signal loss in the liver in phase images relative to in phase images is compatible diffuse fa tty infiltration. No solid mass lesion evident. Probable fatty sparing present adjacent to gallbladde r fossa. Spleen, pancreas, adrenals, kidneys appear normal. The aorta and the paraaortic regions appe ar normal. Impression: Diffuse fatty infiltration of liver with area of fatty sparing adjacent to the gallbladder fossa, whi ch correlates with recent sonographic findings. No suspicious hepatic mass identified. Reviewed, dictated and finalized at [facility]. Impression: Diffuse fatty infiltration of liver with area of fatty sparing adjacent to the gallbladder fossa, which correlates with recent sonographic findings. No suspic ious hepatic mass identified.
== END 2025-01-05 15:03 | disposition home or self-care (01) ==
PROVIDERS: PCP Internal Medicine; Visit Provider Internal Medicine
DX: R93.89 Abnormal findings on diagnostic imaging of other specified body structures (principal)
CPT/HCPCS: 74183; A9577

== ENCOUNTER 2025-01-20 02:21 | Day surgery (SDC) | payer MEDICARE, MEDICAID, SELFPAY ==
--- NOTE | 2025-01-13 09:31 | PC.NURSE ---
Report to the Outpatient Waiting Room, entrance under the green pavilion located off [facility], at time _7:30 AM on date _01/20/25 . Planned Procedure Time: _9:30 AM .? Time changes happen often and if your time is changed the preop area will call you the afternoon before. - You and your visitor will be asked to self-screen and do not enter if you have any COVID symptoms. Please call surgeon if you need to reschedule. - A mask is optional within the hospital at this time. Patients may have clear liquids (water, carbonated beverages, clear teas, apple juice) until 3 hours prior to surgery ( 6:30 AM) with a maximum of 20 ounces. - No food from midnight until time of surgery and no smoking, or chewing tobacco (or any form of nicotine). No chewing gum, candy or mints. Take only the following medications with a SIP of water on the morning of surgery: ____AMLODIPINE,GABAPENTIN DO NOT STOP ANY OF YOUR OTHER PRESCRIPTION MEDICATIONS PRIOR TO SURGERY EXCEPT THE FOLLOWING Hold all vitamins and supplements for 3 days per anesthesiologist.LAST DOSE 01/16/25 Medications to discontinue per physician NONE Please no make-up, nail bulgarian, hairspray, perfume, deodorant, or body powder the day of surgery.? No jewelry (including any body piercings) or valuables the day of surgery, leave them at home.? Please take a shower or bath the night before, or the morning of, surgery with an antibacterial soap.? Wear comfortable, loose fitting clothing.? Children are encouraged to wear pajamas. - Jewelry must be removed prior to entering the operating room.? Rings and piercings that are not removed may be cut off. - The hospital will not accept responsibility for valuables.? - Please leave all valuables, including medications, at home the day of surgery. If you are going home after surgery, a licensed charter coach driver must drive you home.? - NO public transportation without another adult if you receive anesthesia. - We recommend that an adult stay with you for 24 hours following discharge. - We also recommend that you do not drive, make important decision, drink alcoholic beverages, or take any drugs that were not prescribed by your health care provider for at least 24 hours after your discharge time. For Pediatric surgeries, we recommend two adults accompany the child home. Follow any additional instructions given to you from your surgeon. Telephone instructions given to __PATIENT and asked if any additional questions and then verbalized understanding. Patient advised to call surgeon office or pre surgery nurse liaison [phone] if any additional questions.
[2025-01-13 10:45] VITALS: BMI 33.3
--- OUTSIDE RECORDS SUMMARY | 2025-01-20 02:24 | XMS_ITS | Clinical Summary ---
Author Organization [facility] Address [address] [place] [address] Care Team Providers Care Manager Machine Name Role Phone Unavailable Primary Care Provider Unavailabl e Source Comments [facility],non-owned Affiliates and Associated Physician Practices is amultiple site organization consisting of ambulatory clinics and hospital sitesin [place], [place], [place] and [place]. This disclosure is being madepursuant to the Care Everywhere program and may not contain all information available regarding this patient. Last updated 18.[facility] Allergies No known active allergies Medications * [...] on file Legal Sex Female 4:46 PM CHANNEL LIP WETTER Gender Identity Not on file Sexual Orientation Not on file Last Filed Vital Signs Vital Sign Reading Time Taken Comments Blood Pressure 132/88 07/27/2018 10:15 AM CHANNEL LIP WETTER Pulse 82 07/27/2018 10:15 AM CHANNEL LIP WETTER Temperature 36.9 C (98.5 F) 07/27/2018 10:15 AM CHANNEL LIP WETTER Respiratory Rate 16 07/27/2018 10:15 AM CHANNEL LIP WETTER Oxygen Saturation 98% 07/27/2018 10:15 AM CHANNEL LIP WETTER Inhaled Oxygen Concentration - - Weight 83.9 kg (185 lb) 07/27/2018 10:15 AM CHANNEL LIP WETTER Height 166.4 cm (5' 5.5) 07/27/2018 10:15 AM CS T Body Mass Index 30.32 07/27/2018 10:15 AM CHANNEL LIP WETTER Plan of Treatment Health Maintenance Due Date [...] season) 2024 DEPRESSION SCREENING 06/22/2024 INFLUENZA VACCINE (#1) 2025 Respiratory Syncytial Virus (RSV) Vaccine Pt: [...]
--- OUTSIDE RECORDS SUMMARY | 2025-01-20 02:24 | XMS_ITS | Clinical Summary ---
Author Organization [facility] Address [facility] [place] [address] Care Team Providers Care Esol Teacher Assistant Name Role Phone Haim Stephens MD Unavailable [phone] Deborah Whitten NP Primary Care Provider [...] Comments Blood Pressure 168/96 08/10/2024 8:49 AM SCRAP HOIST OPERATOR Pulse 82 08/10/2024 8:49 AM SCRAP HOIST OPERATOR Temperature 36.2 C (97.1 F) 06/03/2024 7:55 AM SCRAP HOIST OPERATOR Respiratory Rate 16 06/03/2024 7:55 AM SCRAP HOIST OPERATOR Oxygen Saturation 99% 08/10/2024 8:49 AM SCRAP HOIST OPERATOR Inhaled Oxygen Concentration - - Weight 88 kg (194 lb) 08/10/2024 8:49 AM SCRAP HOIST OPERATOR Height 165.1 cm (5' 5) 05/30/2024 9:25 AM SCRAP HOIST OPERATOR Body Mass Index 32.28 05/30/2024 9:25 AM SCRAP HOIST OPERATOR Plan of Treatment Health Maintenance Due Date Last Done Comments Breast Cancer Screening-Mammogram 1950 Depression Screening 1950 Hepatitis C Screening 1950 Osteoporosis Screening-Bone Density Scan 1950 DTaP/Tdap/Td Vaccine (1 - Tdap) 1963 Hepatitis B Screening 1970 Pneumococcal vaccine 65+ (1 of 1 - PCV) 2002 Well Visit 65+ 2017 Zoster Vaccine (2 of 2) 03/11/2024 01/15/2024 Influenza Vaccine (#1) 2025 Fall Risk Assessment 06/03/2025 06/03/2024 Colon Cancer Screening-Colonoscopy 05/02/20342023 Procedures Procedure Name Priority Date/Time Associated Diagnosis Comments COLONOSCOPY 05/02/2024 11:40 AM SCRAP HOIST OPERATOR from Last 3 Months or Most Recently Relevant to Health Maintenance Results * Colonoscopy (05/02/2024 11:40 AM SCRAP HOIST OPERATOR) Anatomical Region Laterality Modality Other Narrative Procedure Note Maco Bird MD - 05/02/2024 11:40 AM CST ENDOSCOPY LAB Patient Name: Juan Sheppard Procedure Date: 05/02/2024 11:40AM Date of : 1950 Admit Type: Outpatient Age: 73 Gender: Female Attending MD: Maco Bird M.D. Room: [facility] ENDOSCOPY ROOM 02 Note Status: Finalized [...] The scope was passed under direct vision.The [id number] was introduced through the anusand advanced to [...] Most Recently Relevant to Health Maintenance Insurance [facility] MEDICARE ADVANTAGE IDWY [facility] MEDICARE ADVANTAGE IDPA Advance Directives For more information, please contact: [phone] * Full Code (Latest Code Status on File) Date Activated Date Inactivated Comments 05/27/2024 4:41 PM 06/03/2024 2:24 PM * Full Code Date Activated Date Inactivated Comments 05/02/2024 10:51 AM 05/02/2024 5:46 PM Care Teams Esol Teacher Assistant Relationship Specialty Start Date End Date Deborah Whitten NP [address] [place] [address] [place] [address] PCP - General Family Medicine 03/10/24 Haim Stephens MD [address] [place] [address] Obstetrics and Gynecology 03/04/24
--- OUTSIDE RECORDS SUMMARY | 2025-01-20 02:24 | XMS_ITS | Referral Summary ---
Author Organization [facility] Address [address] [place] [address] Care Team Providers Care Vice President Of Product Marketing Name Role Phone Haim Stephens MD Unavailable [phone] Deborah Whitten NP Primary Care Provider [phone] Allergies No known active allergies Medications latanoprost [...] Comments Blood Pressure 168/96 08/10/2024 8:49 AM ART GALLERY DIRECTOR Pulse 82 08/10/2024 8:49 AM ART GALLERY DIRECTOR Temperature 36.2 C (97.1 F) 06/03/2024 7:55 AM ART GALLERY DIRECTOR Respiratory Rate 16 06/03/2024 7:55 AM ART GALLERY DIRECTOR Oxygen Saturation 99% 08/10/2024 8:49 AM ART GALLERY DIRECTOR Inhaled Oxygen Concentration - - Weight 88 kg (194 lb) 08/10/2024 8:49 AM ART GALLERY DIRECTOR Height 165.1 cm (5' 5) 05/30/2024 9:25 AM ART GALLERY DIRECTOR Body Mass Index 32.28 05/30/2024 9:25 AM ART GALLERY DIRECTOR Plan of Treatment Not on file Procedures Procedure Name Priority Date/Time Associated Diagnosis Comments COLONOSCOPY 05/02/2024 11:40 AM ART GALLERY DIRECTOR from Last 3 Months or Most Recently Relevant to Health Maintenance Results * Colonoscopy (05/02/2024 11:40 AM ART GALLERY DIRECTOR) Anatomical Region Laterality Modality Other Narrative Procedure Note Maco Bird MD - 05/02/2024 11:40 AM CST ENDOSCOPY LAB Patient Name: Juan Sheppard Procedure Date: 05/02/2024 11:40AM Date of : 1950 Admit Type: Outpatient Age: 73 Gender: Female Attending MD: Maco Bird M.D. Room: [facility] ENDOSCOPY ROOM 02 Note Status: Finalized [...] The scope was passed under direct vision.The [id number] was introduced through the anusand advanced to [...] Most Recently Relevant to Health Maintenance Insurance [facility] MEDICARE ADVANTAGE IDPA [facility] MEDICARE ADVANTAGE IDPA Advance Directives For more information, please contact: [phone] * Full Code (Latest Code Status on File) Date Activated Date Inactivated Comments 05/27/2024 4:41 PM 06/03/2024 2:24 PM * Full Code Date Activated Date Inactivated Comments 05/02/2024 10:51 AM 05/02/2024 5:46 PM Care Teams Vice President Of Product Marketing Relationship Specialty Start Date End Date Deborah Whitten NP [address] [place] [address] [place] [address] PCP - General Family Medicine 03/10/24 Haim Stephens MD [address] [place] [address] Obstetrics and Gynecology 03/04/24
--- NOTE | 2025-01-20 07:39 | WPDHPUPDATE1 ---
History and Physical Update Update Date/Time: 01/20/25 07:39 History and Physical has been reviewed, including an updated exam of the patient. There are NO changes in the patient's condition. Risks, benefits, and alternatives have been discussed and questions answered. Patient agrees to proceed with procedure.
--- NOTE | 2025-01-20 07:50 | WPDANESEPP ---
Anes - Eval Pre Procedure Procedure: Operation Date: 01/20/25 09:30 Proposed Procedures p Excision Right Axillary Skin Lesion - Lester Johnson MD Date/Time: 01/20/25 07:50 Surgeon: Alex Pre Op Diagnosis: Ulcerated Rt Axillary Skin Lesion Patient Data Age: 74 Gender: F Height: 1.65 m Weight: 90.75 kg Allergies Allergy/AdvReac Type Severity Reaction Status Date / Time No Known Allergies Allergy Mild Verified 01/13/25 09:31 Home Medications ?Medication ?Instructions ?Recorded ?Confirmed ?Type amlodipine 10 mg tablet 10 mg PO DAILY 09/24/22 01/13/25 History omeprazole 40 mg capsule,delayed 40 mg PO DAILY 09/24/22 01/13/25 History release atorvastatin 10 mg tablet (Lipitor) 10 mg PO DAILY 12/27/24 01/13/25 History ezetimibe 10 mg tablet 10 mg PO DAILY 12/27/24 01/13/25 History gabapentin 600 mg tablet 600 mg PO TID 12/27/24 01/13/25 History methocarbamol 500 mg tablet 500 mg PO BID 12/27/24 01/13/25 History acetaminophen 650 mg 1,300 mg PO Q12H PRN pain 01/13/25 01/13/25 History tablet,extended release (8 Hour Pain Reliever) ascorbic acid (vitamin C) 1,000 mg 1 g PO DAILY 01/13/25 01/13/25 History tablet (C-1000) cyanocobalamin (vitamin B-12) 1,000 mcg PO DAILY 01/13/25 01/13/25 History 1,000 mcg capsule [id number] 8 mg-folic 400 1 tablet PO DAILY 01/13/25 01/13/25 History mcg-K 50 mcg-lutein 300 mcg tablet (Centrum Silver Women) vitamin E 268 mg (400 unit) capsule 268 mg PO DAILY 01/13/25 01/13/25 History Other studies: Echo 12/26/2024: EF 60-65%, Grade I diastolic dysfunction. Patient hx anesthesia problems: none Family hx anesthesia problems: none Results Review: All pre-operative results and documents have been reviewed as part of the pre-operative evaluation. 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 Hypertension Surgical History Surgical History History of hysterectomy Family History Family History Mother Hypertension Heart disease Social History Social History Smoking packs per day: 1 Smoking cigarettes per day: 20.0 Smoking status: Current every day smoker Tobacco type: cigarettes Alcohol intake: never Substance use: never Do You Feel Safe in your Home?: Yes Lack of Transportation: No Lack of Food: Never True Current Housing: I Have Housing Concerned About Future Housing: No Difficulty Paying Gas/Electric Bills: No Difficulty Paying for Meds: No Currently Unemployed: No Education: High School Diploma/GED Difficulty w/ Childcare or Family Care: No Living arrangements: alone Gender identity (if verbalized by the patient): Female Spiritual care concerns: No Exam Day of Procedure 01/20/25 07:50 Patient weight: obese (bmi 33.3)
[2025-01-20 08:00] VITALS: BP 170/95; PULSE 73; RESP 16; TEMP 37.1; O2SAT 98
--- NOTE | 2025-01-20 08:08 | WPDANESEFPP ---
Anes - Eval Final PreProcedure Day of Procedure 01/20/25 08:08 Patient weight: obese Heart: regular rate and rhythm Lungs: clear to auscultation Airway: Mallampati scale class II Neurological: alert and oriented Last oral intake: >/= 8 hours ASA classification: III Emergent: no Anesthetic plan: proceed Anesthesia type and monitoring: general GIVS Results Review: All pre-operative results and documents have been reviewed as part of the pre-operative evaluation. Informed Consent: The patient's anesthetic plan and its attendant risks and benefits were discussed with the patient/family/POA. Questions were solicited and answers provided to the satisfaction of the patient/family/POA.
[2025-01-20] MEDS: LACTATED RINGERS 1,000 ML 30 ML IV CONT (08:10)
[2025-01-20] MEDS: ceFAZolin 2 GM in SODIUM CHLORIDE 0.9% IV 50 ML 100 ML IVPB (08:12)
[2025-01-20] MEDS: LIDO 1%/EPINEPHRINE 1:100,000 50 ML VIAL 10 ML INFILTRATE (08:36)
[2025-01-20] MEDS: BUPivacaine HCL 0.5% 10 ML AMP 20 ML INFILTRATE (08:39)
--- NOTE | 2025-01-20 08:39 | S_PTH ---
PATIENT: Kerri Sheppard V LOC: [facility] U#:[id number] AGE/SX: 74/F ROOM: RE01/20/[address]: Lester Johnson MD : 1950 BED: DIS: 01/20/2025 SPEC #: [id number] RECD: 01/20/25 09:53 STATUS: GWEN REAri #: [id number] [place]: 01/20/25 08:[address]: Lester Johnson DEPT: [facility] Surgical RECD BY: Jaci Vela ENTERED: 01/20/25 09:53 SP TYPE: Surgical OTHR DR: Fabricio Miller, Tissues: A - Axillary Contents Procedures: Hematoxylin and Eosin Stain Gross and Microscopic Level 4
--- NOTE | 2025-01-20 08:54 | W.PM.PROC2 ---
Procedure Note - Detailed Date of Procedure 01/20/25 Pre-op Diagnosis Ulcerated Rt Axillary Skin Lesion Post-op Diagnosis Same Procedure Performed Excision of right axillary pedunculated and ulcerated skin lesion with 4.5cm intermediate layered wound closure. Surgeon Lester Johnson MD Tool And Die Designer CHAVO Redman Anesthesia MAC and Local Indications Patient is a 74-year-old female who had a prior history of right breast cancer. She presented to my office with an enlarging ulcerated pedunculated skin lesion in the right mid axillary area. No palpable adenopathy was noted. No suspicious palpable masses of the right breast were noted on breast exam. She presents now for excision of the skin lesion. Findings The patient had a pedunculated ulcerating skin lesion of the right axillary area measuring [id number]. At the base of the stalk it measured 1.5cm in diameter. Obtained a minimal of 3mm circumferential margin around the base of the stalk on the excision. The wound was closed with a intermediate layered wound closure of the ellipse and closure measured 4.5cm in length. Description of Procedure After informed consent was obtained patient brought to the operating room she was placed supine position and then IV sedation was administered by anesthesia. The right breast and right axillary region was then prepped and draped usual sterile fashion. A time-out was then performed correctly identifying the patient as well as procedure to be performed. Site marking was identified and she was given perioperative IV antibiotics. I anesthetized the area at the base of the stalk of the skin lesion utilizing combination of 1% lidocaine mixed with 0.5% Marcaine. [id number] was used to anesthetize this area. I then proceeded to make an elliptical incision around the base of the pedunculated lesion. I tried to obtain at least a 3mm margin circumferentially around the base within this ellipse of tissue. I carried the incision deeply down through the dermis of the skin with a scalpel and then utilized electrocautery to completely excise the ellipse of skin and the lesion out down into the normal appearing he yellow subcutaneous fatty tissue. The specimen was then sent sent to pathology for examination. The area was then irrigated sterile saline solution and hemostasis was achieved utilized electrocautery. The was then closed with a intermediate layered wound closure. Interrupted layers of 3-0 Vicryl suture was used to approximate the subcutaneous tissues. Skin edges were then approximated utilizing a running subcuticular 4-0 Monocryl suture. The incision was then cleaned and then skin glue was applied. The patient tolerated the procedure well no complications. All sponges, needles, and instrument counts were correct at the end procedure. EBL was _5__cc. The patient was awakened and taken to recovery in stable and satisfactory condition. Implants None Estimated Blood Loss 5 Drains No Packing No Pathology Yes (Right axillary skin lesion sent to pathology.) Complications No immediate complications Condition Stable Disposition Same day [facility] Billing Surgery - Charge Forward: Surgery Billing
[2025-01-20 08:59] VITALS: BP 119/70; PULSE 69; RESP 14; O2SAT 95
[2025-01-20 09:30] VITALS: BP 128/68; PULSE 64; O2SAT 93
[2025-01-20 10:00] VITALS: BP 143/82; PULSE 70
[2025-01-20 10:30] VITALS: BP 137/82; PULSE 69
[2025-01-20 11:00] VITALS: BP 149/81; PULSE 68
== END 2025-01-20 11:05 | disposition home or self-care (01) ==
PROVIDERS: PCP Internal Medicine; Visit Provider Surgery
PROC: (CPT 11606; principal; 2025-01-20 09:30)
DX: C44.519 Basal cell carcinoma of skin of other part of trunk (principal); E66.9 Obesity, unspecified; Z68.35 Body mass index [BMI] 35.0-35.9, adult; F17.210 Nicotine dependence, cigarettes, uncomplicated
CPT/HCPCS: 11606; 12032; 88305; J0690; A9270; J2003; J2004; J2250; J2704; J3010; J7120

== ENCOUNTER 2025-04-20 08:53 | Outpatient (CLI) | payer MEDICARE, MEDICAID, SELFPAY ==
--- NOTE | ~2025-04-20 | MM_ITS ---
EXAMINATION: MM screening jamilah BI w gene HISTORY: Screening TECHNIQUE: Craniocaudal and mediolateral oblique 3-D tomosynthesis images were obtained and synthetic 2-D images were generated. CAD analysis was submitted and interpreted. COMPARISON: No prior mammogram is available for comparison at this institution. BREAST PARENCHYMAL COMPOSITION: Not Dense: The breasts are almost entirely fatty. FINDINGS: There are left periareolar masses near the nipple. There is a small mass in the lower inner quadrant of the right breast, anterior third. IMPRESSION: 1. Bilateral breast masses. 2. Additional mammographic views and possible breast ultrasound are recommended. BI-RADS Category 0: Incomplete: Needs additional imaging evaluation. Reviewed, dictated and finalized at location B. IMPRESSION: 1. Bilateral breast masses. 2. Additional mammographic views and possible breast ultrasound are recommended . BI-RADS Category 0: Incomplete: Needs additional imaging evaluation.
--- OUTSIDE RECORDS SUMMARY | 2025-04-20 09:14 | XMS_ITS | Clinical Summary ---
Author Organization [facility] [address] Address [address] [place] [address] Care Team Providers Care Silk Screen Frame Assembler Name Role Phone Unavailable Primary Care Provider Unavailabl e Source Comments [facility] [address],non-owned Affiliates and Associated Physician Practices is amultiple site organization consisting of ambulatory clinics and hospital sitesin [place], [place], [place] and [place]. This disclosure is being madepursuant to the Care Everywhere program and may not contain all information available regarding this patient. Last updated 18.[facility] [address] Allergies No known active allergies Medications * [...] on file Legal Sex Female 4:46 PM ASSISTANT TO THE VICE PRESIDENT Gender Identity Not on file Sexual Orientation Not on file Last Filed Vital Signs Vital Sign Reading Time Taken Comments Blood Pressure 132/88 07/27/2018 10:15 AM ASSISTANT TO THE VICE PRESIDENT Pulse 82 07/27/2018 10:15 AM ASSISTANT TO THE VICE PRESIDENT Temperature 36.9 C (98.5 F) 07/27/2018 10:15 AM ASSISTANT TO THE VICE PRESIDENT Respiratory Rate 16 07/27/2018 10:15 AM ASSISTANT TO THE VICE PRESIDENT Oxygen Saturation 98% 07/27/2018 10:15 AM ASSISTANT TO THE VICE PRESIDENT Inhaled Oxygen Concentration - - Weight 83.9 kg (185 lb) 07/27/2018 10:15 AM ASSISTANT TO THE VICE PRESIDENT Height 166.4 cm (5' 5.5) 07/27/2018 10:15 AM CS T Body Mass Index 30.32 07/27/2018 10:15 AM ASSISTANT TO THE VICE PRESIDENT Plan of Treatment Health Maintenance Due Date [...] Tdap) 1971 PNEUMOCOCCAL VACCINE 50+ (1 of 2 - PCV) 1971 ZOSTER VACCINE (1 of 2) 2002 SCREENING FOR DIABETES 11/19/2017 DEPRESSION SCREENING 06/22/2024 MEDICARE AWV CALENDAR YEAR 2024 COVID-19 VACCINE (1 - 2023-2 5 season) 2025 INFLUENZA VACCINE (#1) 2025 Respiratory Syncytial Virus [...] patient's age to complete this topic Insurance [place] ADV SELF PAY NO INSURANCE Member Subscriber Plan / Payer (Ef fective for All Dates) Name:Myke Sheppard Member ID:Not on file Relation to Subscriber:Not on file Name:SYLVIA SHEPPARD STANLEYEbony Subscriber ID:Not on file (Home) Address: [address] [place] [id number] Payer ID:Not on file Group ID:Not on file Type:Self Pay Address: [place], [place] MANAGED MEDICARE ADV MEDICAID - OUT OF STATE
== END 2025-04-20 08:54 | disposition home or self-care (01) ==
LOC: ANHFOHIMG 08:54
PROVIDERS: PCP Internal Medicine; Visit Provider Internal Medicine
DX: Z12.31 Encounter for screening mammogram for malignant neoplasm of breast (principal); N63.42 Unspecified lump in left breast, subareolar; N63.14 Unspecified lump in the right breast, lower inner quadrant; R92.8 Other abnormal and inconclusive findings on diagnostic imaging of breast
CPT/HCPCS: 77063; 77067